=== PATIENT | female | born 2005 | race Caucasian/White ===

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

== ENCOUNTER 2024-01-02 14:23 | Outpatient (CLI) | payer OTHER, SELFPAY ==
--- NOTE | 2024-01-02 14:31 | ECHO_ITS ---
Patient Info Name: Kay Gruber Age: 18 years : 2005 Gender: Female Ht: 65 in Wt: 282 lbs BSA: 2.50 m2 HR: 98 bpm BP: 119 / 98 mmHg Heart Rhythm: Sinus Rhythm Technical Quality: Fair Exam Date: 01/02/2024 2:41 PM Exam Location: Echo Lab Patient Status: Outpatient Admit Date: 01/02/2024 Staff Ordering Physician: Tawanda Lopez DO Community Service Specialist: Whitney Cain RDCS Attending Provider: Tawanda Lopez DO Referring Physician: John POWERS; Exam Type: CA echo doppler color flow Study Info Indications R06.09 - Other forms of dyspnea Complete two-dimensional, color flow and Doppler transthoracic echocardiogram is performed. Summary 1. Complete two-dimensional, color flow and Doppler transthoracic echocardiogram is performed. 2. Left ventricular chamber dimension is normal. 3. Left ventricular systolic function is normal, estimated at 60-65%. 4. The left ventricular diastolic function is normal. 5. E/e' 6 is not elevated. 6. No pulmonary hypertension, estimated pulmonary arterial systolic pressure is 20 mmHg. Left Ventricle E/e' 6 is not elevated. Left ventricular chamber dimension is normal. Left ventricular systolic function is normal, estimated at 60-65%. The left ventricular diastolic function is normal. Right Ventricle Right ventricular systolic function is normal and with normal TAPSE 2.2 cm. Right ventricular chamber dimension is normal. Left Atria Left atrial chamber dimension is normal. Right Atria Right atrial chamber dimension is normal. Aortic Valve The aortic valve is trileaflet. There is no aortic valve stenosis. There is no aortic valve regurgitation. Pulmonic Valve There is no pulmonic regurgitation. Mitral Valve There is no mitral valve stenosis. There is no mitral valve regurgitation. Tricuspid Valve There is no tricuspid valve regurgitation. No pulmonary hypertension, estimated pulmonary arterial systolic pressure is 20 mmHg. Pericardium/Pleural There is no pericardial effusion. Inferior Vena Cava Normal inferior vena cava with >50% collapse upon inspiration consistent with normal right atrial pressure, 5 mmHg. Aorta The aortic root size at the sinus of Valsalva is normal. Left Ventricular Outflow Tract Name Value Normal LVOT 2D LVOT Diameter 2.0 cm LVOT Doppler LVOT Peak Gradient 3 mmHg LVOT Mean Gradient 2 mmHg LVOT VTI 18 cm LVOT VTI/AV VTI Ratio 0.8 LVOT Stroke Volume 57 ml LVOT CO 12.7 l/min LVOT CI 5.1 l/min/m2 Pulmonic Valve Name Value Normal RVOT Doppler RVOT Peak Gradient 2 mmHg PV Doppler PV Peak Gradient 4 mmHg Mitral Valve
== END 2024-01-02 14:24 | disposition home or self-care (01) ==
LOC: ANHCARD 14:26
PROVIDERS: Visit Provider Internal Medicine Cardiovascular Disease
DX: R06.09 Other forms of dyspnea (principal)
CPT/HCPCS: 93306

== ENCOUNTER 2024-01-11 15:13 | Emergency (ER) | payer OTHER, SELFPAY ==
[2024-01-11 16:02] VITALS: BP 150/92; PULSE 110; RESP 18; TEMP 36.7; O2SAT 100
== END 2024-01-11 20:40 | disposition left against medical advice (07) ==
LOC: ANHED 20:07
DX: R10.9 Unspecified abdominal pain (principal)
CPT/HCPCS: 99199

== ENCOUNTER 2024-02-16 11:16 | Outpatient (CLI) | payer OTHER, SELFPAY ==
--- NOTE | ~2024-02-16 | US_ITS ---
Limited Abdominal Sonogram: Real-time sonographic imaging of the right upper quadrant was performed. Clinical History: Abdominal pain Findings: The liver appears echogenic with no evidence of mass lesion or bile duct dilatation. Main portal vein demonstrates normal direction of flow. The gallbladder is well distended, and appears nor mal with no evidence of gallstone or wall thickening. The common bile duct measures 5 mm. The visual ized pancreas, aorta, and IVC are unremarkable. Impression: Diffuse fatty infiltration of the liver. Reviewed, dictated and finalized at location M. Impression: Diffuse fatty infiltration of the liver.
== END 2024-02-16 11:17 | disposition home or self-care (01) ==
LOC: MICIMG 11:17
PROVIDERS: PCP Nurse Practitioner Family; Visit Provider Nurse Practitioner Family
DX: K76.0 Fatty (change of) liver, not elsewhere classified (principal)
CPT/HCPCS: 76705

== ENCOUNTER 2024-04-03 19:58 | Observation (INO) | payer OTHER, SELFPAY ==
--- NOTE | ~2024-04-03 | CT_ITS ---
EXAMINATION: CT abdomen pelvis wo con DATE: 04/03/2024 21:41 INDICATION: Bilateral flank and lower abdomen pain TECHNIQUE: Computed tomography (CT) of the abdomen and pelvis was performed without intravenous contr ast. Automated exposure control and iterative reconstruction technique were employed. Exam dose: 151 0.07 mGy-cm total exam DLP. COMPARISON: None. FINDINGS: The lung bases are clear. Normal heart size. No pericardial or pleural effusion. The liver, gallbladder, bile ducts, spleen, pancreas, pancreatic duct and adrenal glands appear bautista l. No renal mass lesion is evident on this limited noncontrast study. No urinary tract calculus or hydro ureteronephrosis. Subtle bilateral fat stranding around the ureters is noted; recommend clinical correlation to exclude pyelonephritis. The urinary bladder, uterus and adnexal areas appear unremarkable. Normal caliber of the abdominal aorta. There are shotty nonenlarged mesenteric and right lower quadrant lymph nodes. No intraperitoneal or retroperitoneal or pelvic mass lesion or adenopathy or ascites. No evidence of appendicitis. No bowel obstruction, bowel wall thickening, pneumatosis or intraperiton eal free air. Small fat-containing umbilical hernia. No suspicious osteolytic or osteoblastic lesions. IMPRESSION: No urinary tract calculus or hydroureteronephrosis There is subtle bilateral periureteral fat stranding; recommend clinical correlation to exclude pyelo nephritis Reviewed, dictated and finalized at [facility] Reviewed, dictated and finalized at [facility] NOGRAPH OPERATOR IMPRESSION: No urinary tract calculus or hydroureteronephrosis There is subtle bilateral periureteral fat stranding; recommend clinical correl ation to exclude pyelonephritis
[2024-04-03 20:09] VITALS: BP 121/80; PULSE 145; RESP 20; TEMP 38.1; O2SAT 99
--- NOTE | 2024-04-03 20:23 | ECG_ITS ---
Test Date: 2024-04-03 20:26:26 Measurements Intervals [place] Rate: 142 P: 46 KS: 133 QRS: 39 QRSD: 91 T: 1 QT: 328 QTc: 506 Interpretive Statements SINUS TACHYCARDIA DELAYED PRECORDIAL R/S TRANSITION MINIMAL Q WAVES- INFERIOR LEADS ST DEVIATION AND MODERATE T-WAVE ABNORMALITY IN ANTEROLAT/INF LEADS, CONSIDER ISCHEMIA Compared to ECG 03/14/2024 02:29:50 HEART RATE HAS INCRASED Electronically Signed On 04-03-2024 22:24:33 HEALTH CARE FACILITY ADMINISTRATOR by Tawanda Lopez D.O.
[2024-04-03 21:07] LABS: Add Urine Microscopic? YES; Appearance Urine Turbid (Clear); Bacteria Urine 1+ /hpf; Bilirubin Urine Negative (Negative); Blood Urine 3+ (Negative); Color Urine Dark Yellow (Yellow); Glucose Urine UA Negative (Negative); Ketones Urine Trace mg/dL (Negative); Leukocyte Esterase Ur 3+ LEU/UL (Negative); Nitrate Urine Positive (Negative); Non Pathogenic Casts 0-2; Protein Urine 3+ mg/dL (Negative); RBC Urine 51-100 /hpf (0-2); Specific Grav Ur 1.015 (1.001-1.035); Squamous Epithelial Cell Urine Few /hpf (Few); WBC Urine >100 /hpf (0-3); pH Urine 5.5 (5.0-9.0)
[2024-04-03] MEDS: ACETAMINOPHEN 500 MG TABLET 1000 MG PO (21:11)
[2024-04-03] MEDS: SODIUM CHLORIDE 0.9% IV 1,000 ML 999 ML IV CONT ×2 (21:11→22:26)
[2024-04-03] MEDS: MORPHINE SULFATE (*CRX) 4 MG/ML INJ IV PUSH (21:17)
[2024-04-03 21:18] LABS: Basophils Percent Auto 0.1 % (0.2-1.2); Hematocrit 42.7 % (37.0-47.0); Hemoglobin 14.2 g/dL (12.0-15.0); Immature Granulocyte Absolute 0.07 K/mm3 (0.00-0.031); Immature Granulocyte Percent A 0.6 % (0-0.5); Lymphocytes Absolute Auto 1.26 K/mm3 (0.9-3.2); Lymphocytes Percent Auto 10.6 % (18.3-44.2); Mean Corpuscular HGB Conc 33.3 g/dl (32-36); Mean Corpuscular Volume 87.1 fl (80-100); Monocytes Absolute Auto 1.6 K/mm3 (0.1-0.6); Monocytes Percent Auto 13.2 % (2.6-8.5); Neutrophils Percent Auto 75.5 % (45.5-73.1); Platelet Count Result 295 k/mm3 (150-375); Red Cell Distribution Width 12.7 % (11.5-14.5); White Blood Count 11.9 K/mm3 (4.5-10.0)
[2024-04-03] MEDS: ONDANSETRON INJ 4 MG/2 ML VIAL IV PUSH (21:18)
--- NOTE | 2024-04-03 21:28 | ED_ITS ---
HPI - Female Genitourinary General Chief complaint: Urogenital-Female <Taylor Walden PA-C - Last Filed: 04/03/24 23:29> Stated complaint: uti <Taylor Walden PA-C - Last Filed: 04/03/24 23:29> Time Seen by Provider: 04/03/24 20:40 <Taylor Walden PA-C - Last Filed: 04/03/24 23:29> Source: patient <ELISEO Vázquez Last Filed: 04/03/24 23:29> Mode of arrival: ambulatory <ELISEO Vázquez Last Filed: 04/03/24 23:29> Limitations: no limitations <ELISEO Vázquez Last Filed: 04/03/24 23:29> History of Present Illness HPI Narrative: Patient is a 19-year-old female who presents the ED with report of lower abdominal and flank pain. Patient reports having pain throughout her bilateral flank regions, R>L, into her bilateral lower abdomen over the last 3-4 days. Has not been taking anything for pain. Reports urinary frequency and urgency. Reports nausea, denies vomiting. Denies diarrhea, constipation. Reports subjective fevers at home. Was febrile upon arrival today. Denies dysuria or hematuria. Denies previous history of kidney stones or kidney infection. <Taylor Walden PA-C - Last Filed: 04/03/24 23:29> Related Data Allergies/Adverse reactions: Allergies Allergy/AdvReac Type Severity Reaction Status Date / Time No Known Allergies Allergy Verified 04/03/24 20:17 <Taylor Walden PA-C - Last Filed: 04/03/24 23:29> Review of Systems Review of Systems: All systems reviewed & are unremarkable except as noted in HPI. <Taylor Walden PA-C - Last Filed: 04/03/24 23:29> All systems reviewed & are unremarkable except as noted in HPI and below <ELISEO Vázquez Last Filed: 04/03/24 23:29> [facility] Past Medical History Medical History: Medical History ADHD (attention deficit hyperactivity disorder) Anxiety Depression Encounter for Nexplanon removal 05/27/2022 Hypertension Hypertension Nexplanon insertion 07/2018 Nexplanon insertion 08/23/21 Nexplanon removal/reinsertion Nexplanon removal 08/23/21 Nexplanon removal/reinsertion Tachycardia Vaginal discharge <Taylor Walden PA-C - Last Filed: 04/03/24 23:29> Surgical History Surgical History: Surgical History History of tonsillectomy <Taylor Walden PA-C - Last Filed: 04/03/24 23:29> Social History Social History: Social History Smoking status: Never smoker Alcohol intake: never Substance use: never Substance use type: former substance user and marijuana Last use: 02/24/2024 Do You Feel Safe in your Home?: Yes Lack of Transportation: No Lack of Food: Never True Current Housing: I Have Housing Concerned About Future Housing: No Difficulty Paying Gas/Electric Bills: No Difficulty Paying for Meds: No Currently Unemployed: No Education: High School Diploma/GED Difficulty w/ Childcare or Family Care: No Living arrangements: other Additional living arrangements comments: grandma Occupation/Education: unemployed Gender identity (if verbalized by the patient): Female Sexual Orientation (if Verbalized by the Patient): Straight or Heterosexual Spiritual care concerns: No <Taylor Walden PA-C - Last Filed: 04/03/24 23:29> Exam Narrative: GENERAL: Well appearing, obese, non-toxic, in no acute distress. HEAD: Normocephalic, atraumatic. RESPIRATORY: Airway patent, respirations nonlabored. Clear to auscultation bi laterally, no rales, rhonchi, wheezing. CARDIOVASCULAR: Tachycardic with regular rhythm without murmurs, rubs, or gallops. ABDOMINAL: Soft, mild tenderness throughout marianna lower quadrants, nondistended. Normoactive BS. +CVA tenderness bilaterally. MUSCULOSKELETAL: Moves all extremities. No gross deformities. SKIN: Warm, dry, mildly flushed appearing NEURO: A&O X3. Speech clear. Cranial nerves II-XII grossly intact. Steady gait. No ataxic movements. PSYCHIATRIC: Appropriate mood and affect. Normal interaction. <Taylor Walden PA-C - Last Filed: 04/03/24 23:29> Course [employer] MANAGER/PA Physician Supervision I agree with midlevel documentation; I performed medical decision making and I had independent [id number] time with the patient and performed my own independent evaluation and assessment. patient was tachycardic on initial vital signs of 145, treated and provided pain relief and fluid hydration with improvement her vital signs. Patient had improvement medically without significant findings are CT scan including bilateral pyelonephritis. She was treated with IV antibiotic therapy and antipyretic therapy with improvement her temperature 36.8? C. patient is stable for admission to the hospital at this time for continued care and antibiotic therapy. Patient and family members at bedside were made aware of the plan of care and agreeable to admission. Patient was admitted to Dr. Gerer <Jose Arriola MD - Last Filed: 04/04/24 00:26> Vital Signs Vital signs: Vital Signs Temperature 38.1 C H 04/03/24 20:09 Pulse Rate 145 H 04/03/24 20:09 Respiratory Rate 20 04/03/24 20:09 Blood Pressure 121/80 04/03/24 20:09 Pulse Oximetry 99 04/03/24 20:09 Oxygen Delivery Room Air 04/03/24 20:09 Temperature 36.8 C 04/03/24 23:59 Pulse Rate 103 H 04/03/24 23:59 Respiratory Rate 16 04/03/24 23:59 Blood Pressure 131/80 04/03/24 23:59 Pulse Oximetry 100 04/03/24 23:59 Oxygen Delivery Room Air 04/03/24 20:09 <Taylor Walden PA-C - Last Filed: 04/03/24 23:29> Vital Signs Temperature 38.1 C H 04/03/24 20:09 Pulse Rate 145 H 04/03/24 20:09 Respiratory Rate 20 04/03/24 20:09 Blood Pressure 121/80 04/03/24 20:09 Pulse Oximetry 99 04/03/24 20:09 Oxygen Delivery Room Air 04/03/24 20:09 Temperature 36.8 C 04/03/24 23:59 Pulse Rate 103 H 04/03/24 23:59 Respiratory Rate 16 04/03/24 23:59 Blood Pressure 131/80 04/03/24 23:59 Pulse Oximetry 100 04/03/24 23:59 Oxygen Delivery Room Air 04/03/24 20:09 <Jose Arriola MD - Last Filed: 04/04/24 00:26> MDM - Female Genitourinary MDM Narrative Medical decision making narrative: Patient presented to ED with bilateral lower abdominal and flank pain X 3- 4 days. Patient tachycardic into the 140s and febrile upon arrival. Fluids and Tylenol given. She does appear to be frequently tachycardic per recent/previous ED visits. She does states she has a history of this. CBC with white blood cell count of 11.9. Neutrophil predominance. No bandemia. CMP with creatinine of 1.1. Slightly increased from baseline around 0.8. Fluids ongoing. Lactic a yumiko within normal limits at 0.8. UA consistent with infection. Sent for culture. Blood cultures obtained. Rocephin given in the ED. CT scan of abdomen/pelvis showing bilateral periureteral fat stranding, consistent with pyelonephritis. No obstructing stone. Patient meeting sepsis criteria based on initial vital signs and source of infection. Vitals have improved drastically since fluids which is reassuring. However given sepsis with bilateral nature of pyelonephritis, will admit for IV antibiotics. Discussed case with Dr. Greer, hospitalist, accepted patient for admission. Recommended to start meropenem instead of Rocephin. Patient is in agreement with plan and need for admission. <Taylor Walden PA-C - Last Filed: 04/03/24 23:29> Medical Records Attestation: I reviewed the patient's medical records. <Taylor Walden PA-C - Last Filed: 04/03/24 23:29> Lab Data Attestation: I reviewed the patient's lab results. <Taylor Walden PA-C - Last Filed: 04/03/24 23:29> Result diagrams: 04/03/24 21:10 04/03/24 21:10 <Taylor Walden PA-C - Last Filed: 04/03/24 23:29> Labs: Lab Results 04/03/24 04/03/24 Range/Units 20:55 21:10 WBC 11.9 H (4.5-10.0) K/mm3 RBC 4.90 (4.2-5.4) M/mm3 Hgb 14.2 (12.0-15.0) g/dL Hct 42.7 (37.0-47.0) % MCV 87.1 (80-100) fl MCH 29.0 (26-34) pg MCHC 33.3 (32-36) g/dl RDW 12.7 (11.5-14.5) % Plt Count 295 (150-375) k/mm3 MPV 10.0 (7.4-10.4) fl Immature Gran % (Auto) 0.6 H (0-0.5) % Neut % (Auto) 75.5 H (45.5-73.1) % Lymph % (Auto) 10.6 L (18.3-44.2) % [place] % (Auto) 13.2 H (2.6-8.5) % Eos % (Auto) 0.0 (0-4.4) % Baso % (Auto) 0.1 L (0.2-1.2) % Lymph # (Auto) 1.26 (0.9-3.2) K/mm3 [place] # (Auto) 1.6 H (0.1-0.6) K/mm3 Eos # (Auto) 0.0 (0-0.3) K/mm3 Baso # (Auto) 0.0 (0.0-0.1) K/mm3 Abs Immat Gran (auto) 0.07 H (0.00-0.031) K/mm3 Absolute Neuts (auto) 9.0 H (1.3-6.7) K/mm3 Absolute Nucleated RBC 0.000 (0.0-0.012) K/mm3 Nucleated RBC % 0.0 (0.0-0.2) % Sodium 138 (137-145) mmol/L Potassium 3.7 (3.4-5.0) mmol/L Chloride 103 (98-107) mmol/L Carbon Dioxide 25 (22-30) mmol/L Anion Gap 10 (4-12) mmol/L BUN 7 (7-17) mg/dL Creatinine 1.10 H (0.7-1.0) mg/dL Estim Creat Clear Calc Not Reportable Estimated GFR > 60 (59 - ) Glucose 97 (65-110) mg/dL Lactic Acid 0.8 (0.7-2.0) mmol/L Calcium 9.6 (8.4-10.2) mg/dL Total Bilirubin 2.0 H (0.2-1.3) mg/dL AST 22 (14-36) U/L ALT 27 (6-35) U/L Alkaline Phosphatase 102 (38-126) U/L Total Protein 9.0 H (6.3-8.2) g/dL Albumin 4.6 (3.5-5.1) g/dL Urine Color Dark yellow (Yellow) Urine Appearance Turbid H (Clear) Urine pH 5.5 (5.0-9.0) Ur Specific [place] 1.015 (1.001-1.035) Urine Protein 3+ H (Negative) mg/dL Urine Glucose (UA) Negative (Negative) mg/dL Urine Ketones Trace H (Negative) mg/dL Ur Blood (Man) 3+ H (Negative) Urine Nitrate Positive H (Negative) Urine Bilirubin Negative (Negative) Urine Urobilinogen 1.0 (<2.0) mg/dL Leukocyte Esterase Rfl 3+ H (Negative) LACY/UL Urine RBC 51-100 H (0-2) /hpf Urine WBC >100 H (0-3) /hpf Ur Squamous Epith Cells Few (Few) /hpf Urine Bacteria 1+ H /hpf Urine Casts 0-2 <Taylor Walden PA-C - Last Filed: 04/03/24 23:29> Lab Results 04/03/24 04/03/24 Range/Units 20:55 21:10 WBC 11.9 H (4.5-10.0) K/mm3 RBC 4.90 (4.2-5.4) M/mm3 Hgb 14.2 (12.0-15.0) g/dL Hct 42.7 (37.0-47.0) % MCV 87.1 (80-100) fl MCH 29.0 (26-34) pg MCHC 33.3 (32-36) g/dl RDW 12.7 (11.5-14.5) % Plt Count 295 (150-375) k/mm3 MPV 10.0 (7.4-10.4) fl Immature Gran % (Auto) 0.6 H (0-0.5) % Neut % (Auto) 75.5 H (45.5-73.1) % Lymph % (Auto) 10.6 L (18.3-44.2) % [place] % (Auto) 13.2 H (2.6-8.5) % Eos % (Auto) 0.0 (0-4.4) % Baso % (Auto) 0.1 L (0.2-1.2) % Lymph # (Auto) 1.26 (0.9-3.2) K/mm3 [place] # (Auto) 1.6 H (0.1-0.6) K/mm3 Eos # (Auto) 0.0 (0-0.3) K/mm3 Baso # (Auto) 0.0 (0.0-0.1) K/mm3 Abs Immat Gran (auto) 0.07 H (0.00-0.031) K/mm3 Absolute Neuts (auto) 9.0 H (1.3-6.7) K/mm3 Absolute Nucleated RBC 0.000 (0.0-0.012) K/mm3 Nucleated RBC % 0.0 (0.0-0.2) % Sodium 138 (137-145) mmol/L Potassium 3.7 (3.4-5.0) mmol/L Chloride 103 (98-107) mmol/L Carbon Dioxide 25 (22-30) mmol/L Anion Gap 10 (4-12) mmol/L BUN 7 (7-17) mg/dL Creatinine 1.10 H (0.7-1.0) mg/dL Estim Creat Clear Calc Not Reportable Estimated GFR > 60 (59 - ) Glucose 97 (65-110) mg/dL Lactic Acid 0.8 (0.7-2.0) mmol/L Calcium 9.6 (8.4-10.2) mg/dL Total Bilirubin 2.0 H (0.2-1.3) mg/dL AST 22 (14-36) U/L ALT 27 (6-35) U/L Alkaline Phosphatase 102 (38-126) U/L Total Protein 9.0 H (6.3-8.2) g/dL Albumin 4.6 (3.5-5.1) g/dL Urine Color Dark yellow (Yellow) Urine Appearance Turbid H (Clear) Urine pH 5.5 (5.0-9.0) Ur Specific [place] 1.015 (1.001-1.035) Urine Protein 3+ H (Negative) mg/dL Urine Glucose (UA) Negative (Negative) mg/dL Urine Ketones Trace H (Negative) mg/dL Ur Blood (Man) 3+ H (Negative) Urine Nitrate Positive H (Negative) Urine Bilirubin Negative (Negative) Urine Urobilinogen 1.0 (<2.0) mg/dL Leukocyte Esterase Rfl 3+ H (Negative) LACY/UL Urine RBC 51-100 H (0-2) /hpf Urine WBC >100 H (0-3) /hpf Ur Squamous Epith Cells Few (Few) /hpf Urine Bacteria 1+ H /hpf Urine Casts 0-2 <Jose Arriola MD - Last Filed: 04/04/24 00:26> Imaging Data Attestation: I personally reviewed and interpreted this imaging study as follows: < Taylor Walden PA-C - Last Filed: 04/03/24 23:29> Radiologist's impression: ITS Impressions Abdomen/Pelvis CT 04/03/24 21:47 IMPRESSION: No urinary tract calculus or hydroureteronephrosis There is subtle bilateral periureteral fat stranding; recommend clinical correlation to exclude pyelonephritis <Taylor Walden PA-C - Last Filed: 04/03/24 23:29> ECG Data EKG #1: Attestation: I personally reviewed and interpreted this ECG as follows: <Taylor Walden PA-C - Last Filed: 04/03/24 23:29> ECG completion date: 04/03/24 <Taylor Walden PA-C - Last Filed: 04/03/24 23:29> ECG completion time: 20:26 <Taylor Walden PA-C - Last Filed: 04/03/24 23:29> EKG Interpretation: tachycardia (142), sinus rhythm and non-specific ST changes <Taylor Walden PA-C - Last Filed: 04/03/24 23:29> Discharge Plan Discharge Clinical Impression: Pyelonephritis, NOE (acute kidney injury) UTI (urinary tract infection) Qualifiers: Urinary tract infection type: acute cystitis Hematuria presence: with hematuria Qualified Code(s): N30.01 - Acute cystitis with hematuria Sepsis Qualifiers: Sepsis type: sepsis due to unspecified organism Sepsis acute organ dysfunction status: unspecified Qualified Code(s): A41.9 - Sepsis, unspecified organism <Taylor Walden PA-C - Last Filed: 04/03/24 23:29> Patient Disposition: Still a Patient <Taylor Walden PA-C - Last Filed: 04/03/24 23:29> Condition: Stable <ELISEO Vázquez Last Filed: 04/03/24 23:29>
[2024-04-03 21:38] LABS: Alanine Aminotransferase 27 U/L (6-35); Albumin Level 4.6 g/dL (3.5-5.1); Alkaline Phosphatase 102 U/L (38-126); Anion Gap 10 mmol/L (4-12); Aspartate Amino Transferase 22 U/L (14-36); Blood Urea Nitrogen 7 mg/dL (7-17); Calcium 9.6 mg/dL (8.4-10.2); Carbon Dioxide 25 mmol/L (22-30); Chloride 103 mmol/L (98-107); Estimated Glomerular Filt Rate > 60; Glucose 97 mg/dL (65-110); Lactic Acid Reflex 0.8 mmol/L (0.7-2.0); Potassium 3.7 mmol/L (3.4-5.0); Sodium 138 mmol/L (137-145)
[2024-04-03 22:20] VITALS: BP 115/78; PULSE 98; RESP 20; O2SAT 99
--- NOTE | 2024-04-03 23:07 | PM.IMHP ---
H&P: HPI History of Present Illness Date/Time: 04/03/24 23:07 Chief Complaint: urinary frequency Narrative: This is a 19-year-old female with past medical history significant for obesity, patient presents to the emergency room due to lethargy, fevers, chills, back pain, urinary incontinence, urinary frequency x2 days duration. Preliminary workup was significant for urinalysis with numerous WBCs present a CT of abdomen and pelvis was significant for ureteral fat stranding. Patient has been admitted for further evaluation management and treatment. EXAMINATION: CT abdomen pelvis wo con DATE: 04/03/2024 21:41 INDICATION: Bilateral flank and lower abdomen pain TECHNIQUE: Computed tomography (CT) of the abdomen and pelvis was performed without intravenous contrast. Automated exposure control and iterative reconstruction technique were employed. Exam dose: 1510.07 mGy-cm total exam DLP. COMPARISON: None. FINDINGS: The lung bases are clear. Normal heart size. No pericardial or pleural effusion. The liver, gallbladder, bile ducts, spleen, pancreas, pancreatic duct and adrenal glands appear normal. No renal mass lesion is evident on this limited noncontrast study. No urinary tract calculus or hydroureteronephrosis. Subtle bilateral fat stranding around the ureters is noted; recommend clinical correlation to exclude pyelonephritis. The urinary bladder, uterus and adnexal areas appear unremarkable. Normal caliber of the abdominal aorta. There are shotty nonenlarged mesenteric and right lower quadrant lymph nodes. No intraperitoneal or retroperitoneal or pelvic mass lesion or adenopathy or ascites. No evidence of appendicitis. No bowel obstruction, bowel wall thickening, pneumatosis or intraperitoneal free air. Small fat-containing umbilical hernia. No suspicious osteolytic or osteoblastic lesions. IMPRESSION: No urinary tract calculus or hydroureteronephrosis There is subtle bilateral periureteral fat stranding; recommend clinical correlation to exclude pyelonephritis Review of Systems Review of Systems: altered mental status, lethargy, fevers, chills, frequent urination, urine incontinence PMFSH Past Medical History Medical History ADHD (attention deficit hyperactivity disorder) Anxiety Depression Encounter for Nexplanon removal 05/27/2022 Hypertension Hypertension Nexplanon insertion 07/2018 Nexplanon insertion 08/23/21 Nexplanon removal/reinsertion Nexplanon removal 08/23/21 Nexplanon removal/reinsertion Tachycardia Vaginal discharge Surgical History Surgical History History of tonsillectomy Social History Social History Smoking status: Never smoker Alcohol intake: never Substance use: never Current Housing: Decline to Answer Concerned About Future Housing: Decline to Answer Difficulty Paying Gas/Electric Bills: Decline to Answer Difficulty Paying for Meds: Decline to Answer Currently Unemployed: Decline to Answer Education: Decline to Answer Difficulty w/ Childcare or Family Care: Decline to Answer Living arrangements: other Additional living arrangements comments: grandma Occupation/Education: unemployed Gender identity (if verbalized by the patient): Female Sexual Orientation (if Verbalized by the Patient): Straight or Heterosexual Meds Home Medications and Allergies Home Medications Medication Instructions Recorded Confirmed Type norethindrone (contraceptive) 0.35 0.35 mg PO DAILY #84 tabs 12/08/23 04/04/24 Rx mg tablet losartan 50 mg tablet 50 mg PO DAILY #30 tabs 12/18/23 04/04/24 Rx propranolol 20 mg tablet 20 mg PO BID #60 tabs 12/18/23 04/04/24 Rx ibuprofen 800 mg tablet 800 mg PO TID PRN pain #30 tabs 03/14/24 04/04/24 Rx Allergies Allergy/AdvReac Type Severity Reaction Status Date / Time No Known Allergies Allergy Verified 04/03/24 20:17 Vital Signs Vital Signs - 24 hr 04/03/24 20:09 04/03/24 22:20 Temperature 100.6 F H Pulse Rate 145 H 98 Respiratory Rate 20 20 Blood Pressure 121/80 115/78 Pulse Oximetry 99 99 Oxygen Delivery Room Air Exam Narrative: Laying in a stretcher Const: General: cooperative, comfortable, no acute distress, well developed, alert, awake and obese Nutritional Appearance: obese Orientation/consciousness: patient oriented x3 Other: well-appearing HENMT: Head: normal to inspection, normocephalic and atraumatic Ears: hearing grossly normal bilaterally Face/Nose/Sinus: normal facial exam Face and sinus: normal facial exam Eyes: General: appearance normal, both eyes and all related structures Pupils: Equal, round and reactive pupils present EOM: EOMs intact bilaterally Neck: Neck: full ROM, no lymphadenopathy and no JVD Thyroid: thyroid normal Lymphatic: no lymphadenopathy noted Resp: Effort & Inspection: normal respiratory effort and able to speak in complete sentences Auscultation: clear to auscultation bilaterally Cardio: Jugular venous distension: no JVD Rate: regular rate Rhythm: regular rhythm Heart sounds: S1 normal heart sound present and S2 normal heart sound present GI: GI Palp: Yes Soft to palpation and Yes No hepatosplenomegaly present : General: Yes deferred Skin: Rashes: no rashes Wounds: no wounds Neuro: General: patient oriented x3 and CN's II-XI intact bilaterally Cranial nerves: Yes CN's II-XII intact bilaterally and Yes Equal, round and reactive pupils present Cognition (Neuro): normal cognition Speech: normal speech Gait exam (Neuro): Normal gait present Motor exam (neuro): 5/5 motor strength present throughout Extrem: General: normal to inspection, full ROM, no joint enlargement and no pedal edema H&P: Results Labs Labs: Short CBC 04/03/24 Range/Units 21:10 WBC 11.9 H (4.5-10.0) K/mm3 Hgb 14.2 (12.0-15.0) g/dL Hct 42.7 (37.0-47.0) % Plt Count 295 (150-375) k/mm3 BMP 04/03/24 21:10 Sodium 138 Potassium 3.7 Chloride 103 Carbon Dioxide 25 BUN 7 Creatinine 1.10 H Glucose 97 Calcium 9.6 Liver Function 04/03/24 Range/Units 21:10 Total Bilirubin 2.0 H (0.2-1.3) mg/dL AST 22 (14-36) U/L ALT 27 (6-35) U/L Alkaline Phosphatase 102 (38-126) U/L Albumin 4.6 (3.5-5.1) g/dL Urine 04/03/24 Range/Units 20:55 Urine Color Dark yellow (Yellow) Urine Appearance Turbid H (Clear) Urine pH 5.5 (5.0-9.0) Ur Specific [place] 1.015 (1.001-1.035) Urine Protein 3+ H (Negative) mg/dL Urine Glucose (UA) Negative (Negative) mg/dL Assessment and Plan Assessment and plan (1) Pyelonephritis: Code(s): N12 - Tubulo-interstitial nephritis, not specified as acute or chronic Status: Acute Assessment and Plan: admit to regular medical floor started on meropenem await cultures Hospitalist MIPS Advance Care Plan I have confirmed that the patient's Advanced Care Plan is present, code status is documented, or surrogate decision maker is listed in patient medical record.: Yes Medication Reconciliation I have utilized all available resources to obtain, update and review the patients current medications (includes all prescriptions, OTC, herbals, cannabis, and nutritional supplements).: Yes
[2024-04-03] MEDS: MEROPENEM 1 GM/NS 100 ML 1 GM/100 ML BAG IVPB (23:22)
[2024-04-03 23:23] VITALS: TEMP 36.8
[2024-04-03 23:45] VITALS: BP 132/93; PULSE 99; RESP 14; O2SAT 100; BMI 45.3
[2024-04-03 23:59] VITALS: BP 131/80; PULSE 103; RESP 16; TEMP 36.8; O2SAT 100
[2024-04-04] VITALS (8 sets, daily range): BP systolic 102–125; BP diastolic 49–83; PULSE 69–98; RESP 16–18; TEMP 36.3–37; O2SAT 99–100
--- NOTE | 2024-04-04 00:03 | ADMGEN ---
This patient, Kay Gruber, was admitted to Medical Room 247-. Patient/family oriented to hospital policies and general routines including ID bracelet, bed and alarms, visiting hours, pain management, procedures, bathroom and other care routines, personal items, smoking policy, room service/diet, and visiting hours. Information on how to activate the Rapid Response Team has been discussed. Patient/Family are encouraged to report perceived risks to care and to ask questions if they do not understand what they are told or what they should do.
[2024-04-04] MEDS: ACETAMINOPHEN 325 MG TABLET 650 MG PO (02:45)
[2024-04-04] MEDS: SODIUM CHLORIDE 0.9% IV 1,000 ML 100 ML IV CONT ×2 (02:45→15:27)
[2024-04-04] MEDS: MEROPENEM 1 GM/NS 100 ML 1 GM/100 ML BAG IVPB ×3 (05:17→21:12)
--- NOTE | 2024-04-04 07:25 | P.PNIM_ITS ---
Progress Note: A&P Assessment and Plan (1) Pyelonephritis: Code(s): N12 - Tubulo-interstitial nephritis, not specified as acute or chronic Status: Acute Assessment and Plan: started on meropenem await cultures bc and urine culture pending (2) Hypertension: Code(s): I10 - Essential (primary) hypertension Status: Acute Assessment and Plan: -home losartan 50 mg- will continue - need referal to weight loss clinic oupt for weight loss and life style changes intervention (3) Obesity: Code(s): E66.9 - Obesity, unspecified Status: Acute (4) Tachycardia: Code(s): R00.0 - Tachycardia, unspecified Status: Acute Assessment and Plan: following with cardiology her, SHABNAM 12/18/23 on propanolol- will continue Time Spent With Patient Time with patient: Greater than 35 minutes Subjective Date/time seen: 04/04/24 07:25 Interval history: 19 y.o female with PMH/o ADHD, anxiety, depression, HTN, tachycardia admitted from ed for lethargy, fevers, chills, back pain, urinary incontinence, urinary frequency x2 days duration. She was started on meropenem and admitted. Pt is seen and examined. Her home meds were resumed. She is doing well- reports some pain but a lo better than it was. Ibuprofen controlled pain well, no nausea. Review of Systems Constitutional: Constitutional: Reports chills Cardiovascular: Cardiovascular: Denies chest pain Respiratory: Respiratory: Denies chest congestion and Denies cough Gastrointestinal: Gastrointestinal: Denies abdominal pain Genitourinary: Genitourinary: Reports nocturia Musculoskeletal: Musculoskeletal: Reports back pain Comments: some flank pain but improving Psychiatric: Psychiatric: Reports anxiety and Reports confusion Exam Const: General: cooperative, comfortable, no acute distress, well developed, alert, awake and obese Nutritional Appearance: obese Orientation/con sciousness: patient oriented x3 Other: well-appearing HENMT: Head: normal to inspection, normocephalic and atraumatic Ears: hearing grossly normal bilaterally Face/Nose/Sinus: normal facial exam Face and sinus: normal facial exam Eyes: General: appearance normal, both eyes and all related structures Pupils: Equal, round and reactive pupils present EOM: EOMs intact bilaterally Neck: Neck: full ROM, no lymphadenopathy and no JVD Thyroid: thyroid normal Lymphatic: no lymphadenopathy noted Resp: Effort & Inspection: normal respiratory effort and able to speak in complete sentences Auscultation: clear to auscultation bilaterally Cardio: Jugular venous distension: no JVD Rate: regular rate Rhythm: regular rhythm Heart sounds: S1 normal heart sound present and S2 normal heart sound present : General: Yes deferred Skin: Rashes: no rashes Wounds: no wounds Neuro: General: patient oriented x3 and CN's II-XI intact bilaterally Cranial nerves: Yes CN's II-XII intact bilaterally and Yes Equal, round and reactive pupils present Cognition (Neuro): normal cognition Speech: normal speech Gait exam (Neuro): Normal gait present Motor exam (neuro): 5/5 motor strength present throughout Extrem: General: normal to inspection, full ROM, no joint enlargement and no pedal edema Objective Data Vital Signs Vital Signs: Vital Signs - 24 hr 04/03/24 20:09 04/03/24 22:20 04/03/24 23:23 Temperature 100.6 F H 98.3 F Pulse Rate 145 H 98 Respiratory Rate 20 20 Blood Pressure 121/80 115/78 Pulse Oximetry 99 99 Oxygen Delivery Room Air 04/03/24 23:45 04/03/24 23:59 04/04/24 06:00 Temperature 98.3 F 98.6 F Pulse Rate 99 103 H 95 Respiratory Rate 14 16 16 Blood Pressure 132/93 H 131/80 125/70 Pulse Oximetry 100 100 99 Oxygen Delivery Intake/Output Intake/Output: Intake & Output 04/01/24 04/02/24 04/03/24 04/04/24 23:59 23:59 23:59 23:59 Intake Total 2150 600 Output Total 700 Balance 2150 -100 Meds/Results Medications: Active Medications Generic Name Dose Route Start Last Admin Trade Name Freq PRN Reason Stop Dose Admin Acetaminophen 650 mg 04/03/24 23:09 04/04/24 02:45 Acetaminophen 325 Mg Tablet PO 650 mg Q4H PRN Administration Mild Pain (1-3) or Fever Meropenem 1 gm in 100 mls @ 200 mls/hr 04/04/24 06:00 04/04/24 05:47 IVPB Infused Q8HR VIANNEY Infusion Sodium Chloride 1,000 mls @ 100 mls/hr 04/03/24 23:10 04/04/24 02:45 Normal Saline Iv IV CONT 100 mls/hr .Q10H VIANNEY Administration Morphine Sulfate 4 mg 04/03/24 23:09 Morphine Sulfate (*Crx) 4 Mg/Ml Inj IV PUSH Q2H PRN Pain Rated 7-10 Ondansetron HCl 4 mg 04/03/24 23:09 Ondansetron Inj 4 Mg/2 Ml Vial IV PUSH Q4H PRN Nausea Radiology Results: ITS Impressions Abdomen/Pelvis CT 04/03/24 21:47 IMPRESSION: No urinary tract calculus or hydroureteronephrosis There is subtle bilateral periureteral fat stranding; recommend clinical correlation to exclude pyelonephritis Labs Labs: Laboratory Results - last 24 hr 04/03/24 04/03/24 20:55 21:10 WBC 11.9 H RBC 4.90 Hgb 14.2 Hct 42.7 MCV 87.1 MCH 29.0 MCHC 33.3 RDW 12.7 Plt Count 295 MPV 10.0 Immature Gran % (Auto) 0.6 H Neut % (Auto) 75.5 H Lymph % (Auto) 10.6 L [place] % (Auto) 13.2 H Eos % (Auto) 0.0 Baso % (Auto) 0.1 L Lymph # (Auto) 1.26 [place] # (Auto) 1.6 H Eos # (Auto) 0.0 Baso # (Auto) 0.0 Abs Immat Gran (auto) 0.07 H Absolute Neuts (auto) 9.0 H Absolute Nucleated RBC 0.000 Nucleated RBC % 0.0 Sodium 138 Potassium 3.7 Chloride 103 Carbon Dioxide 25 Anion Gap 10 BUN 7 Creatinine 1.10 H Estim Creat Clear Calc Not Reportable Estimated GFR > 60 Glucose 97 Lactic Acid 0.8 Calcium 9.6 Total Bilirubin 2.0 H AST 22 ALT 27 Alkaline Phosphatase 102 Total Protein 9.0 H Albumin 4.6 Urine Color Dark yellow Urine Appearance Turbid H Urine pH 5.5 Ur Specific [place] 1.015 Urine Protein 3+ H Urine Glucose (UA) Negative Urine Ketones Trace H Ur Blood (Man) 3+ H Urine Nitrate Positive H Urine Bilirubin Negative Urine Urobilinogen 1.0 Leukocyte Esterase Rfl 3+ H Urine RBC 51-100 H Urine WBC >100 H Ur Squamous Epith Cells Few Urine Bacteria 1+ H Urine Casts 0-2
[2024-04-04] MEDS: PROPRANOLOL HCL 20 MG TABLET PO (08:57)
[2024-04-04] MEDS: LOSARTAN POTASSIUM 50 MG TABLET PO (08:57)
[2024-04-04] MEDS: IBUPROFEN 400 MG TABLET 800 MG PO (09:00)
[2024-04-04] MEDS: ONDANSETRON INJ 4 MG/2 ML VIAL IV PUSH (23:19)
[2024-04-04] MEDS: MORPHINE SULFATE (*CRX) 4 MG/ML INJ IV PUSH (23:19)
[2024-04-05] MEDS: SODIUM CHLORIDE 0.9% IV 1,000 ML 100 ML IV CONT (01:27)
[2024-04-05 05:06] VITALS: TEMP 37.3
[2024-04-05] MEDS: IBUPROFEN 400 MG TABLET 800 MG PO (05:06)
[2024-04-05] MEDS: MEROPENEM 1 GM/NS 100 ML 1 GM/100 ML BAG IVPB (05:06)
[2024-04-05 06:00] VITALS: BP 105/62; PULSE 104; RESP 16; TEMP 37.3; O2SAT 99
[2024-04-05 06:17] LABS: Hemoglobin 11.1 g/dL (12.0-15.0); Mean Corpuscular HGB Conc 32.6 g/dl (32-36); Mean Corpuscular Hemoglobin 28.7 pg (26-34); Mean Corpuscular Volume 87.9 fl (80-100); Mean Platelet Volume 9.8 fl (7.4-10.4); Platelet Count Result 206 k/mm3 (150-375); Red Blood Count 3.87 M/mm3 (4.2-5.4); Red Cell Distribution Width 12.8 % (11.5-14.5); White Blood Count 8.2 K/mm3 (4.5-10.0)
[2024-04-05 06:40] LABS: Anion Gap 9 mmol/L (4-12); Blood Urea Nitrogen 5 mg/dL (7-17); Calcium 8.6 mg/dL (8.4-10.2); Carbon Dioxide 22 mmol/L (22-30); Chloride 108 mmol/L (98-107); Estimated CRCL calculation 146 ml/min; Estimated Glomerular Filt Rate > 60; Glucose 95 mg/dL (65-110); Potassium 3.8 mmol/L (3.4-5.0); Sodium 139 mmol/L (137-145)
--- NOTE | 2024-04-05 07:32 | PM.IMPN ---
Progress Note: A&P Assessment and Plan (1) Pyelonephritis: Code(s): N12 - Tubulo-interstitial nephritis, not specified as acute or chronic Status: Acute Assessment and Plan: started on meropenem await cultures bc prelim- negative urine culture pending (2) Hypertension: Code(s): I10 - Essential (primary) hypertension Status: Acute Assessment and Plan: -home losartan 50 mg- will continue - need referal to weight loss clinic oupt for weight loss and life style changes intervention (3) Obesity: Code(s): E66.9 - Obesity, unspecified Status: Acute (4) Tachycardia: Code(s): R00.0 - Tachycardia, unspecified Status: Acute Assessment and Plan: following with cardiology her, SHABNAM 12/18/23 on propanolol- will continue Time Spent With Patient Time with patient: Greater than 35 minutes Subjective Date/time seen: 04/05/24 07:32 Interval history: 19 y.o female with PMH/o ADHD, anxiety, depression, HTN, tachycardia admitted from ed for lethargy, fevers, chills, back pain, urinary incontinence, urinary frequency x2 days duration. She was started on meropenem and admitted. Pt is seen and examined. Her home meds were resumed. She is doing well- reports some pain but a lot better than it was. Ibuprofen controlled pain well, no nausea. 04/05- seen and examined at the bedside Review of Systems Review of Systems: altered mental status, lethargy, fevers, chills, frequent urination, urine incontinence Constitutional: Constitutional: Reports chills Cardiovascular: Cardiovascular: Denies chest pain Respiratory: Respiratory: Denies chest congestion and Denies cough Gastrointestinal: Gastrointestinal: Denies abdominal pain Genitourinary: Genitourinary: Reports nocturia Musculoskeletal: Musculoskeletal: Reports back pain Neurologic: Reports confusion Psychiatric: Psychiatric: Reports anxiety and Reports confusion Exam Narrative: Laying in a stretcher Const: General: cooperative, comfortable, no acute distress, well developed, alert, awake, confusion, average body habitus and obese Nutritional Appearance: average body habitus and obese Orientation/consciousness: patient oriented x3 and confusion Other: well-appearing HENMT: Head: normal to inspection, normocephalic and atraumatic Ears: hearing grossly normal bilaterally Face/Nose/Sinus: normal facial exam Face and sinus: normal facial exam Eyes: General: appearance normal, both eyes and all related structures Pupils: Equal, round and reactive pupils present EOM: EOMs intact bilaterally Neck: Neck: full ROM, no lymphadenopathy and no JVD Thyroid: thyroid normal Lymphatic: no lymphadenopathy noted Resp: Effort & Inspection: normal respiratory effort and able to speak in complete sentences Auscultation: clear to auscultation bilaterally Cardio: Jugular venous distension: no JVD Rate: regular rate Rhythm: regular rhythm Heart sounds: S1 normal heart sound present and S2 normal heart sound present : General: Yes deferred Skin: Rashes: no rashes Wounds: no wounds Neuro: General: patient oriented x3, CN's II-XI intact bilaterally and confusion Cranial nerves: Yes CN's II-XII intact bilaterally and Yes Equal, round and reactive pupils present Cognition (Neuro): normal cognition Speech: normal speech Gait exam (Neuro): Normal gait present Motor exam (neuro): 5/5 motor strength present throughout Extrem: General: normal to inspection, full ROM, no joint enlargement and no pedal edema Objective Data Vital Signs Vital Signs: Vital Signs - 24 hr 04/04/24 08:53 04/04/24 08:57 04/04/24 08:57 Temperature 98.1 F Pulse Rate 94 98 Respiratory Rate 18 Blood Pressure 125/83 Pulse Oximetry 100 Oxygen Delivery Room Air 04/04/24 15:29 04/04/24 17:28 04/04/24 17:52 Temperature 97.7 F Pulse Rate 69 70 70 Respiratory Rate 18 16 Blood Pressure 106/49 L 109/65 Pulse Oximetry 99 100 Oxygen Delivery 04/04/24 20:00 04/04/24 22:00 04/05/24 05:06 Temperature 97.3 F L 99.2 F Pulse Rate 70 85 Respiratory Rate 16 16 Blood Pressure 102/74 Pulse Oximetry 100 100 Oxygen Delivery Room Air 04/05/24 06:00 Temperature 99.2 F Pulse Rate 104 H Respiratory Rate 16 Blood Pressure 105/62 Pulse Oximetry 99 Oxygen Delivery Intake/Output Intake/Output: Intake & Output 04/02/24 04/03/24 04/04/24 04/05/24 23:59 23:59 23:59 23:59 Intake Total 2150 2880 2200 Output Total 1600 1000 Balance 2150 1280 1200 Meds/Results Medications: Active Medications Generic Name Dose Route Start Last Admin Trade Name Freq PRN Reason Stop Dose Admin Acetaminophen 650 mg 04/03/24 23:09 04/04/24 02:45 Acetaminophen 325 Mg Tablet PO 650 mg Q4H PRN Administration Mild Pain (1-3) or Fever Meropenem 1 gm in 100 mls @ 200 mls/hr 04/04/24 06:00 04/05/24 05:36 IVPB Infused Q8HR VIANNEY Infusion Sodium Chloride 1,000 mls @ 100 mls/hr 04/03/24 23:10 04/05/24 01:27 Normal Saline Iv IV CONT 100 mls/hr .Q10H VIANNEY Administration Ibuprofen 800 mg 04/04/24 07:33 04/05/24 05:06 Ibuprofen 400 Mg Tablet PO 800 mg TID PRN Administration Pain Rated 4-6 Losartan Potassium 50 mg 04/04/24 09:00 04/04/24 08:57 Losartan Potassium 50 Mg Tablet PO 50 mg DAILY VIANNEY Administration Miscellaneous Information 0 each 04/04/24 00:01 Norethindrone Is Nonformulary - Can Patient Use From Home? XX 05/04/24 00:00 [facility] Morphine Sulfate 4 mg 04/03/24 23:09 04/04/24 23:19 Morphine Sulfate (*Crx) 4 Mg/Ml Inj IV PUSH 4 mg Q2H PRN Administration Pain Rated 7-10 Non-Formulary Medication 0.35 mg 04/04/24 09:00 Norethindrone (Contraceptive) PO 05/04/24 08:59 DAILY [facility] Ondansetron HCl 4 mg 04/03/24 23:09 04/04/24 23:19 Ondansetron Inj 4 Mg/2 Ml Vial IV PUSH 4 mg Q4H PRN Administration Nausea Propranolol HCl 20 mg 04/04/24 09:00 04/04/24 17:52 Propranolol Hcl 20 Mg Tablet PO Not Given BID [facility] Radiology Results: ITS Impressions Abdomen/Pelvis CT 04/03/24 21:47 IMPRESSION: No urinary tract calculus or hydroureteronephrosis There is subtle bilateral periureteral fat stranding; recommend clinical correlation to exclude pyelonephritis Labs Labs: Laboratory Results - last 24 hr 04/05/24 06:13 WBC 8.2 RBC 3.87 L Hgb 11.1 L D Hct 34.0 L MCV 87.9 MCH 28.7 MCHC 32.6 RDW 12.8 Plt Count 206 MPV 9.8 Sodium 139 Potassium 3.8 Chloride 108 H Carbon Dioxide 22 Anion Gap 9 BUN 5 L Creatinine 0.70 Estim Creat Clear Calc 146 Estimated GFR > 60 Glucose 95 Calcium 8.6
[2024-04-05 08:12] VITALS: BP 125/75; PULSE 76; RESP 16; TEMP 36.1; O2SAT 100
[2024-04-05 08:13] VITALS: PULSE 79; RESP 16; O2SAT 100
[2024-04-05] MEDS: LOSARTAN POTASSIUM 50 MG TABLET PO (08:13)
[2024-04-05] MEDS: PROPRANOLOL HCL 20 MG TABLET PO (08:13)
[2024-04-05] MEDS: cefTRIAXone 2 GM/NS 100 ML 2 GM/100 ML BAG IVPB (11:05)
[2024-04-05 14:00] VITALS: BP 114/74; PULSE 71; RESP 18; TEMP 36.4; O2SAT 100
--- NOTE | 2024-04-05 14:02 | PM.DS ---
DS: Admitting Diagnosis Discharge Date 04/05 Admitting Diagnosis flank pain DS: Discharge Diagnosis Discharge Diagnosis (1) Pyelonephritis: Code(s): N12 - Tubulo-interstitial nephritis, not specified as acute or chronic Status: Acute Assessment and Plan: (2) Hypertension: Code(s): I10 - Essential (primary) hypertension Status: Acute (3) Obesity: Code(s): E66.9 - Obesity, unspecified Status: Acute (4) Tachycardia: Code(s): R00.0 - Tachycardia, unspecified Status: Acute DS: Summary Hospital Course Hospital Course: 19 y.o female with PMH/o ADHD, anxiety, depression, HTN, tachycardia admitted from ed for lethargy, fevers, chills, back pain, urinary incontinence, urinary frequency x2 days duration. She was started on meropenem and admitted. IV antibiotics were switched as no h/o MDRO,and she was downgraded to bactrum. She is trying to become - so important to complete antibiotics prior to becoming . Time Spent with Patient Time attestation: Total time spent providing and/or coordinating discharge services: Time spent: Greater than 30 minutes Exam Const: General: cooperative, comfortable, no acute distress, well developed, alert, awake and obese Nutritional Appearance: obese Orientation/consciousness: patient oriented x3 Other: well-appearing HENMT: Head: normal to inspection, normocephalic and atraumatic Ears: hearing grossly normal bilaterally Face/Nose/Sinus: normal facial exam Face and sinus: normal facial exam Eyes: General: appearance normal, both eyes and all related structures Pupils: Equal, round and reactive pupils present EOM: EOMs intact bilaterally Neck: Neck: full ROM, no lymphadenopathy and no JVD Thyroid: thyroid normal Lymphatic: no lymphadenopathy noted Resp: Effort & Inspection: normal respiratory effort and able to speak in complete sentences Auscultation: clear to auscultation bilaterally Cardio: Jugular venous distension: no JVD Rate: regular rate Rhythm: regular rhythm Heart sounds: S1 normal heart sound present and S2 normal heart sound present : General: Yes deferred Skin: Rashes: no rashes Wounds: no wounds Neuro: General: patient oriented x3, CN's II-XI intact bilaterally and confusion Cranial nerves: Yes CN's II-XII intact bilaterally and Yes Equal, round and reactive pupils present Cognition (Neuro): normal cognition Speech: normal speech Gait exam (Neuro): Normal gait present Motor exam (neuro): 5/5 motor strength present throughout Extrem: General: normal to inspection, full ROM, no joint enlargement and no pedal edema DS: Data Data Completed and Pending Labs on day of discharge: Labs from last 24 hours 04/05/24 06:13 WBC 8.2 RBC 3.87 L Hgb 11.1 L D Hct 34.0 L MCV 87.9 MCH 28.7 MCHC 32.6 RDW 12.8 Plt Count 206 MPV 9.8 Sodium 139 Potassium 3.8 Chloride 108 H Carbon Dioxide 22 Anion Gap 9 BUN 5 L Creatinine 0.70 Estim Creat Clear Calc 146 Estimated GFR > 60 Glucose 95 Calcium 8.6 Preliminary micro results at discharge 04/03/24 20:55 Urine Culture - Preliminary Urine Clean Catch Escherichia Coli 04/03/24 22:08 Blood Culture - Preliminary Blood 04/03/24 22:08 Blood Culture - Preliminary Blood Discharge Plan Discharge Attending physician on discharge: Kyle Guillaume Discharging Clinician: Lisa Rosado Patient Disposition: Home, Self-Care Activity: may shower Diet: as tolerated and regular Discharge Instructions: Your were treated for pyelonephritis. You were given IV antibiotics and IV fluids. Today we will switch you to oral antibiotics and you will complete the course at home. Please wait to try to become as this antibiotics should be be taken in especially in the first trimester, As discussed, once your urine sensitivities come back and your antibiotics are not appropriate, i will call and let you know- we will switch antibiotics then. If you don't hear from me- assume you are on the correct dose. Please f/u with your PCP and/or OBGYN. Patient Instructions: Antibiotic Form, Low Fat Diet (GEN), Weight Management (GEN), Obesity (GEN) Stand Alone Forms: General Discharge Information Follow-up/Referrals: Nika,Anahi Fields APRN [Primary Care Provider] - 1 Week Discharge Medications: New sulfamethoxazole-trimethoprim 800-160 mg Tablet 1 tab PO Q12HR Qty: 10 0RF Continued norethindrone (contraceptive) 0.35 mg tablet 0.35 mg PO DAILY Qty: 84 3RF propranolol 20 mg tablet 20 mg PO BID Qty: 60 5RF losartan 50 mg tablet 50 mg PO DAILY Qty: 30 5RF ibuprofen 800 mg tablet 800 mg PO TID PRN (Reason: pain) Qty: 30 0RF Date of admission: 04/03/24 23:09 Primary Care Provider: NikaAnahi Admitting Provider: Rafita Greer V. Attending physician on admission: Rafita Greer V. Condition: Stable
[2024-04-05] MEDS: INFLUENZA TRIVALENT VACCINE 45 MCG/0.5 ML SYRINGE IM (14:59)
== END 2024-04-05 15:45 | disposition home or self-care (01) ==
LOC: ANHED 23:29 → ANH2MED 04-05 02:40
PROVIDERS: Nurse Practitioner; Admitting Provider Internal Medicine; Emergency Provider Physician Assistant; PCP Nurse Practitioner Family; Visit Provider Internal Medicine
DX: N12 Tubulo-interstitial nephritis, not specified as acute or chronic (principal); I10 Essential (primary) hypertension; E66.9 Obesity, unspecified; Z68.42 Body mass index [BMI] 45.0-49.9, adult; R00.0 Tachycardia, unspecified; F90.9 Attention-deficit hyperactivity disorder, unspecified type; F41.9 Anxiety disorder, unspecified; F32.A Depression, unspecified; Z23 Encounter for immunization; Z79.3 Long term (current) use of hormonal contraceptives; Z79.899 Other long term (current) drug therapy
CPT/HCPCS: 36415; 74176; 80048; 80053; 81001; 83605; 85025; 85027; 87040; 87077; 87086; 87186; 90471; 90656; 93005; 96361; 96365; 96366; 96367; 96375; 99285; A9270; G0008; G0378; J0696; J2185; J2270; J2405; J7030

== ENCOUNTER 2024-05-30 11:36 | Emergency (ER) | payer OTHER, SELFPAY ==
[2024-05-30 11:58] VITALS: BP 147/96; PULSE 85; RESP 20; TEMP 36.6; O2SAT 100
[2024-05-30 13:30] VITALS: PULSE 79; RESP 15; O2SAT 100
[2024-05-30 14:02] VITALS: BP 113/88; PULSE 80; RESP 14; O2SAT 100
[2024-05-30 14:04] LABS: Basophils Percent Auto 0.4 % (0.2-1.2); Eosinophils Percent Auto 0.4 % (0-4.4); Hemoglobin 13.7 g/dL (12.0-15.0); Immature Granulocyte Absolute 0.04 K/mm3 (0.00-0.031); Immature Granulocyte Percent A 0.5 % (0-0.5); Lymphocytes Absolute Auto 1.58 K/mm3 (0.9-3.2); Lymphocytes Percent Auto 21.5 % (18.3-44.2); Mean Corpuscular HGB Conc 32.6 g/dl (32-36); Mean Corpuscular Hemoglobin 28.5 pg (26-34); Mean Corpuscular Volume 87.5 fl (80-100); Mean Platelet Volume 9.6 fl (7.4-10.4); Monocytes Absolute Auto 0.6 K/mm3 (0.1-0.6); Monocytes Percent Auto 7.8 % (2.6-8.5); Neutrophils Absolute Auto 5.1 K/mm3 (1.3-6.7); Neutrophils Percent Auto 69.4 % (45.5-73.1); Platelet Count Result 306 k/mm3 (150-375); Red Cell Distribution Width 13.2 % (11.5-14.5); White Blood Count 7.4 K/mm3 (4.5-10.0)
--- NOTE | 2024-05-30 14:13 | ED_ITS ---
HPI - Female Genitourinary General Chief complaint: Vaginal Bleeding Stated complaint: + preg test, vag bleeding today Time Seen by Provider: 05/30/24 14:05 History of Present Illness HPI Narrative: 19-year-old female with reported history of hypertension presents to the emergency department for vaginal bleeding in . Patient estimates her last menstrual period was in the beginning of April. She had a positive test at the end of March at a gynecology appointment. States she has not taken another test since and has not followed up with her OB. She states last night she began having brown vaginal discharge and woke up this morning with bright red vaginal bleeding. She states that she woke up around 9- 10am she has had to change her tampon 3 times in the past 4 hours. She states she has passed quarter-size clots. Reports associated lower abdominal cramping and low back cramping. She denies dysuria, hematuria, fever, vomiting. She is reporting some nausea. She is G2, P0, A1. Her OBGYN is Dr. Lucio. Related Data Allergies Allergy/AdvReac Type Severity Reaction Status Date / Time No Known Allergies Allergy Verified 05/30/24 11:37 Review of Systems 2 Review of Systems: All systems reviewed & are unremarkable except as noted in HPI and below PMFSH Past Medical History Medical History ADHD (attention deficit hyperactivity disorder) Nexplanon insertion 07/2018 Nexplanon insertion 08/23/21 Nexplanon removal/reinsertion Nexplanon removal 08/23/21 Nexplanon removal/reinsertion Vaginal discharge Encounter for Nexplanon removal 05/27/2022 Anxiety Tachycardia Hypertension Hypertension Depression Surgical History Surgical History History of tonsillectomy Social History Social History Smoking status: Never smoker Alcohol intake: never Substance use: never Substance use type: former substance user and marijuana Last use: 02/24/2024 Do You Feel Safe in your Home?: Yes Lack of Transportation: No Lack of Food: Never True Current Housing: I Have Housing Concerned About Future Housing: No Difficulty Paying Gas/Electric Bills: No Difficulty Paying for Meds: No Currently Unemployed: No Education: High School Diploma/GED Difficulty w/ Childcare or Family Care: No Living arrangements: other Additional living arrangements comments: grandma Occupation/Education: unemployed Gender identity (if verbalized by the patient): Female Sexual Orientation (if Verbalized by the Patient): Straight or Heterosexual Spiritual care concerns: No Exam 2 Narrative: GENERAL: Well-appearing, well-nourished, and in no acute distress. HEAD: Normocephalic, atraumatic. EYES: EOMI. ENT: Nares clear, no rhinorrhea or epistaxis. Mucous membranes moist. NECK: Supple. CHEST: Clear to auscultation. No respiratory distress. HEART: Regular rate and rhythm. No murmur heard. Normal peripheral pulses. ABDOMEN: Soft, nondistended, normal active bowel sounds. Tenderness to the suprapubic region. No rebound, guarding or rigidity. No CVA tenderness : Deferred EXTREMITIES: Normal range of motion. No edema. SKIN: Warm, dry, no rash. NEURO: No focal deficits. Alert and oriented x3 Course Vital Signs Vital signs: Vital Signs Temperature 97.8 F 05/30/24 11:58 Pulse Rate 85 05/30/24 11:58 Respiratory Rate 20 05/30/24 11:58 Blood Pressure 147/96 H 05/30/24 11:58 Pulse Oximetry 100 05/30/24 11:58 Oxygen Delivery Room Air 05/30/24 11:58 Temperature 97.8 F 05/30/24 11:58 Pulse Rate 80 05/30/24 14:02 Respiratory Rate 14 05/30/24 14:02 Blood Pressure 113/88 05/30/24 14:02 Pulse Oximetry 100 05/30/24 14:02 Oxygen Delivery Room Air 05/30/24 13:30 MDM - Female Genitourinary MDM Narrative Medical decision making narrative: 19-year-old female who is A1 presents to the emergency department for vaginal bleeding in . LMP estimated beginning of March, positive test at gynecology appointment was in of March. Vitals with elevated blood pressure 147/96 which has since normalized. She is afebrile and nontoxic appearing. Exam is significant for the above. Lab work is remarkable for <2.39 beta hCG quant. CBC without leukocytosis or anemia. Chemistries are unremarkable. UA with blood, no wbc's, leuk esterase or nitrates concerning for urinary tract infection. Rh type positive, RhoGAM not required. Patient updated on workup. Discussed she is not currently . Discussed possibility of false-positive test her gynecology appointment given she has not had any symptoms of miscarriage until today and that she would likely still have a positive quant if she had become . She received Tylenol, IM Toradol and p.o. Zofran with resolution of cramping and nausea. States her bleeding has significantly improved and is much mutuel teller on re-evaluation. Offered a pelvic exam, however patient politely declined given symptoms have greatly improved. Suspect symptoms are secondary to current menstrual cycle. Will provide ibuprofen and Zofran for symptomatic control. Return precautions discussed. She is agreeable to plan verbalized understanding. Discharged in stable condition. Lab Data 05/30/24 13:58 05/30/24 13:58 Labs: Lab Results 05/30/24 05/30/24 Range/Units 13:58 15:13 WBC 7.4 (4.5-10.0) K/mm3 RBC 4.80 (4.2-5.4) M/mm3 Hgb 13.7 (12.0-15.0) g/dL Hct 42.0 (37.0-47.0) % MCV 87.5 (80-100) fl MCH 28.5 (26-34) pg MCHC 32.6 (32-36) g/dl RDW 13.2 (11.5-14.5) % Plt Count 306 (150-375) k/mm3 MPV 9.6 (7.4-10.4) fl Immature Gran % (Auto) 0.5 (0-0.5) % Neut % (Auto) 69.4 (45.5-73.1) % Lymph % (Auto) 21.5 (18.3-44.2) % Hanson % (Auto) 7.8 (2.6-8.5) % Eos % (Auto) 0.4 (0-4.4) % Baso % (Auto) 0.4 (0.2-1.2) % Lymph # (Auto) 1.58 (0.9-3.2) K/mm3 Hanson # (Auto) 0.6 (0.1-0.6) K/mm3 Eos # (Auto) 0.0 (0-0.3) K/mm3 Baso # (Auto) 0.0 (0.0-0.1) K/mm3 Abs Immat Gran (auto) 0.04 H (0.00-0.031) K/mm3 Absolute Neuts (auto) 5.1 (1.3-6.7) K/mm3 Absolute Nucleated RBC 0.000 (0.0-0.012) K/mm3 Nucleated RBC % 0.0 (0.0-0.2) % PT 13.4 (11.1-14.7) Seconds INR 1.0 APTT 29.3 (22.3-36.8) Seconds Sodium 141 (137-145) mmol/L Potassium 4.1 (3.4-5.0) mmol/L Chloride 109 H (98-107) mmol/L Carbon Dioxide 24 (22-30) mmol/L Anion Gap 8 (4-12) mmol/L BUN 9 (7-17) mg/dL Creatinine 0.70 (0.7-1.0) mg/dL Estim Creat Clear Calc 145 ml/min Estimated GFR > 60 (59 - ) Glucose 81 (65-110) mg/dL Calcium 9.6 (8.4-10.2) mg/dL Total Bilirubin 0.5 (0.2-1.3) mg/dL AST 21 (14-36) U/L ALT 23 (6-35) U/L Alkaline Phosphatase 108 (38-126) U/L Total Protein 8.0 (6.3-8.2) g/dL Albumin 4.4 (3.5-5.1) g/dL Beta HCG, Quant < 2.39 mIU/ML Urine Color Yellow (Yellow) Urine Appearance Clear (Clear) Urine pH 5.0 (5.0-9.0) Ur Specific [place] 1.019 (1.001-1.035) Urine Protein Negative (Negative) mg/dL Urine Glucose (UA) Negative (Negative) mg/dL Urine Ketones Negative (Negative) mg/dL Ur Blood (Man) 2+ H (Negative) Urine Nitrate Negative (Negative) Urine Bilirubin Negative (Negative) Urine Urobilinogen 0.2 (<2.0) mg/dL Leukocyte Esterase Rfl Negative (Negative) LACY/UL Urine RBC 11-20 H (0-2) /hpf Urine WBC 0-5 (0-3) /hpf Ur Squamous Epith Cells None seen (Few) /hpf Urine Bacteria None seen /hpf Urine Casts 0-2 Blood Type O Positive Antibody Screen Negative Screen Not Reportable Baby's Blood Type Not Reportable Baby's RUBY Not Reportable Doses of RhIg Required 0 Discharge Plan Discharge Clinical Impression: Vaginal bleeding Patient Disposition: Home, Self-Care Condition: Stable Instructions: Antibiotic Form, Abnormal (Dysfunctional) Uterine Bleeding (ED) Additional Instructions: Your evaluated in the emergency department for vaginal bleeding and concerns for . Your test is negative. Your blood work is reassuring. Here bleeding is likely secondary to your menstrual cycle. Please take ibuprofen as needed for pain. Return to the emergency department if you saturate more than 1 pad or tampon an hour, a become lightheaded or lose consciousness, or other concerning symptoms. Patient Language: [place] Islander Prescriptions: New ondansetron 4 mg tablet,disintegrating 4 mg PO Q8H Qty: 14 0RF ibuprofen 800 mg tablet 800 mg PO TID PRN (Reason: pain) Qty: 20 0RF No Action norethindrone (contraceptive) 0.35 mg tablet 0.35 mg PO DAILY Qty: 84 3RF ibuprofen 800 mg tablet 800 mg PO TID PRN (Reason: pain) Qty: 30 0RF sulfamethoxazole-trimethoprim 800-160 mg Tablet 1 tab PO Q12HR Qty: 10 0RF propranolol 20 mg tablet See Rx Instructions .ROUTE .COMPLEX Qty: 180 2RF Dose Instruction: TAKE 1 TABLET BY MOUTH TWICE DAILY Rx Instructions: TAKE 1 TABLET BY MOUTH TWICE DAILY losartan 50 mg tablet See Rx Instructions .ROUTE .COMPLEX Qty: 90 2RF Dose Instruction: TAKE 1 TABLET BY MOUTH DAILY Rx Instructions: TAKE 1 TABLET BY MOUTH DAILY Follow-up/Referrals: Nika,Anahi Fields, STERILE PROCESSING TECHNICIAN [Primary Care Provider] -
[2024-05-30 14:15] LABS: Alanine Aminotransferase 23 U/L (6-35); Albumin Level 4.4 g/dL (3.5-5.1); Alkaline Phosphatase 108 U/L (38-126); Anion Gap 8 mmol/L (4-12); Aspartate Amino Transferase 21 U/L (14-36); Bilirubin,Total 0.5 mg/dL (0.2-1.3); Blood Urea Nitrogen 9 mg/dL (7-17); Calcium 9.6 mg/dL (8.4-10.2); Carbon Dioxide 24 mmol/L (22-30); Chloride 109 mmol/L (98-107); Estimated CRCL calculation 145 ml/min; Estimated Glomerular Filt Rate > 60; Glucose 81 mg/dL (65-110); Potassium 4.1 mmol/L (3.4-5.0); Prothrombin Time 13.4 Seconds (11.1-14.7); Sodium 141 mmol/L (137-145)
[2024-05-30 14:16] LABS: Partial Thromboplastin Time 29.3 Seconds (22.3-36.8)
[2024-05-30 14:32] LABS: Beta HCG Quantitative < 2.39 mIU/ML
[2024-05-30] MEDS: ACETAMINOPHEN 500 MG TABLET 1000 MG PO (14:56)
[2024-05-30] MEDS: ONDANSETRON HCL ODT 4 MG TABLET PO (15:13)
[2024-05-30] MEDS: KETOROLAC 30 MG/ML VIAL (*BKC) IM (15:13)
[2024-05-30 15:23] LABS: Add Urine Microscopic? YES; Appearance Urine Clear (Clear); Bacteria Urine None Seen /hpf; Bilirubin Urine Negative (Negative); Blood Urine 2+ (Negative); Color Urine Yellow (Yellow); Glucose Urine UA Negative (Negative); Ketones Urine Negative (Negative); Leukocyte Esterase Ur Negative LEU/UL (Negative); Nitrate Urine Negative (Negative); Non Pathogenic Casts 0-2; Protein Urine Negative (Negative); Specific Grav Ur 1.019 (1.001-1.035); Squamous Epithelial Cell Urine None Seen /hpf (Few); Urobilinogen Urine 0.2 mg/dL (<2.0); WBC Urine 0-5 /hpf (0-3)
[2024-05-30 15:56] VITALS: BP 113/76; PULSE 81; RESP 16; O2SAT 100
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
--- OUTSIDE RECORDS SUMMARY | 2024-06-03 10:44 | XMS_ITS | Encounter Summary ---
Author Organization [facility] Address [address] [place] [address] Phone Care Team Providers Care Sternman Name Role Phone Mary Alice Liu MD Primary Care Provider [phone] Anahi Maher NP Primary Care Provider [phone] Tawanda Lopez DO Unavailable [phone] Arianna Lucio MD Unavailable [phone] Reason for Referral * Cardiology (Routine) - Closed Specialty Diagnoses / Procedures Referred By Radha diaz Referred To Contact Diagnoses Elevated blood pressure reading without diagnosis of hypertension Procedures 24 hour Blood Pressure Monitor Nani Bains MD [address] [place] [address] [address] [place] [address] Phone: tel: fax: External Order Referral ID Status Reason Start Date Expiration Date Visits Re quested Visits Authorized [id number] Closed 04/11/2020 05/11/2021 1 1 SIVE GRADER Encounter Details Date Type Department Care Team (Late st Contact Info) Description 04/11/2020 Orders Only [facility] 2nd [place] [address] [place] [id number] Kimi De La Torre RN Elevated blood pressure reading without diagnosis of hypertension (Primary Dx) Social History Tobacco Use Types Packs/Day Years Used Date Smoking Tobacco: Never Smokeless Tobacco: Never Comments Unknown Sex and Gender Information Value Date Recorded Sex Assigned at Not on file Legal Sex Female 9:25 AM ABRASIVE GRADER Gender Identity Female 02/28/2024 1:35 PM CDT Sexual Orientation Not on file documented as of this encounter Plan of Treatment Pending Results Name Type Priority Associated Diagnoses Date /Time 24 hour Blood Pressure Monitor Cardiac Services Routine Elevated blood pressure reading without diagnosis of hypertension 04/01/2020 7:13 AM ABRASIVE GRADER documented as of this encounter Visit Diagnoses Diagnosis Elevated blood pressure reading without diagnosis of hypertension- Primary documented in this encounter Care Teams Sternman Relationship Specialty Start Date End Date Mary Alice Liu MD [address] [place] [address] PCP - General Pediatrics 01/13/20 02/11/24 Anahi Maher NP [address] [place], [place] [id number] PCP - General Family Medicine 02/12/24 Tawanda Lopez DO [address] [place] [address] Referring Physician Internal Medicine 02/12/24 Arianna Lucio MD [address] [place] [address] Obstetrics and Gynecology 02/12/24 documented as of this encounter
--- OUTSIDE RECORDS SUMMARY | 2024-06-03 10:44 | XMS_ITS | Encounter Summary ---
Author Organization [facility] Address [address] [place] [address] Phone Care Team Providers Care Ophthalmic Technologist Name Role Phone Mary Alice Liu MD Primary Care Provider [phone] Anahi Maher NP Primary Care Provider [phone] Tawanda Lopez DO Unavailable [phone] Arianna Lucio MD Unavailable [phone] Encounter Details Date Type Department Care Team (Late st Contact Info) Description 10/16/2021 Telephone [facility] Pediatric Endocrinology [facility] [address] [place] [address] [place] [address] Lenka Marti [facility] Social History Tobacco Use Types Packs/Day Years Used Date Smoking Tobacco: Never Smokeless Tobacco: Never Comments Unknown Sex and Gender Information Value Date Recorded Sex Assigned at Not on file Legal Sex Female 9:25 AM COMBATANT DIVER OFFICER Gender Identity Female 02/28/2024 1:35 PM CDT Sexual Orientation Not on file documented as of this encounter Plan of Treatment Not on file documented as of this encounter Visit Diagnoses Not on filedocumented in this encounter Care Teams Ophthalmic Technologist Relationship Specialty Start Date End Date Mary Alice Liu MD [address] [place] [address] PCP - General Pediatrics 01/13/20 02/11/24 Anahi Maher NP [address] [place] [address] PCP - General Family Medicine 02/12/24 Tawanda Lopez DO [address] [place] [address] Referring Physician Internal Medicine 02/12/24 Arianna Lucio MD [address] [place] [address] Obstetrics and Gynecology 02/12/24 documented as of this encounter
--- OUTSIDE RECORDS SUMMARY | 2024-06-03 10:44 | XMS_ITS | Referral Summary ---
Author Organization [facility] Address [address] [place] [address] Care Team Providers Care Graduate Intern Name Role Phone Anahi Maher NP Primary Care Provider [phone] Tawanda Lopez DO Unavailable [phone] Arianna Lucio MD Unavailable [phone] Encounters Date Type Department Care Team Description 04/22/2024 1:00 PM ACCOUNTS MANAGER Office Visit [facility] Medical [facility] Primary Care at [address] [address] Eli Qureshi NP UTI symptoms (Primary Dx) 04/21/2024 Telephone [facility] Medical [facility] Primary Care at [address] [address] Anahi Maher NP ROJAS Questions 04/21/2024 Telephone [facility] Primary Care at [address] [address] Anahi Maher NP Appointment (Pt needs to reschedule appt due to provider leaving the office early 04/21/2024) 04/05/2024 Orders Only [facility] Medical [facility] Primary Care at [address] [address] Anne-Marie Donaldson MD 03/15/2024 Orders Only [facility] Primary Care at [address] [address] Anne-Marie Donaldson MD from Last 3 Months Allergies No known active allergies Medications losartan [...] 04/22/2024 Assessment & Plan (04/26/2024 9:52 AM ACCOUNTS MANAGER): Urine dip looks okay, but she is [...] HIV and syphilis Recommended trauma-informed counseling 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 Patient agreeable to Psychiatry, referral placed. Immunizations Name Administration Dates Next Due DTaP / Hep B / IPV 2004,2004, 005 DTaP, Unspecified 11/20/2009,11/04/2007 Hep A, Unspecified 11/04/2007,02/12/2007 HiB 05/09/2005,2004,2004 Influenza, Quadrivalent, Spl it, Preservative Free, Intramuscular 01/18/2019 Influenza, Unspecified 04/05/2024,03/05/2007 MMR 11/20/2009,05/09/2005 Meningococcal Conjugate (Menveo) 01/22/2016 Pneumococcal Conjugate PCV 13 05/09/2005 ,2004,2004,06/02 Polio, Unspecified 11/20/2009 Tdap 01/18/2019,01/22/2016 Varicella 11/20/2009,05/09/2005 Social History Tobacco Use Types Packs/Day Years Used Date Smoking Tobacco: Never Smokeless Tobacco: Never PHQ-2 Answer Date Recorded PHQ-2 Total Score (If total score is 3 or more points, staff should administer the PHQ-9) 6 02/12/2024 Comments Unknown Sex and Gender Information Value Date Recorded Sex Assigned at Not on file Legal Sex Female 9:25 AM ACCOUNTS MANAGER Gender Identity Female 02/28/2024 1:35 PM CDT Sexual Orientation Not on file Last Filed Vital Signs Vital Sign Reading Time Taken Comments Blood Pressure 102/78 04/22/2024 1:08 PM ACCOUNTS MANAGER Pulse 84 04/22/2024 1:08 PM ACCOUNTS MANAGER Temperature 36.3 ??C (97.3 ??F) 04/22/2024 1:08 PM CS T Respiratory Rate 18 04/22/2024 1:08 PM ACCOUNTS MANAGER Oxygen Saturation 98% 04/22/2024 1:08 PM ACCOUNTS MANAGER Inhaled Oxygen Concentration - - Weight 121.7 kg (268 lb 4.8 oz) 04/22/2024 1:08 PM ACCOUNTS MANAGER Height 167.6 cm (5' 6 ) 04/22/2024 1:08 PM ACCOUNTS MANAGER Body Mass Index 43.3 04/22/2024 1:08 PM ACCOUNTS MANAGER Plan of Treatment Not on file Procedures Procedure Name Priority Date/Time Associated Diagnosis Comments POCT URINALYSIS DIPSTICK Routine 04/22/2024 1:21 PM ACCOUNTS MANAGER UTI symptoms CT ABDOMEN PELVIS WO CONTRAST Schedule Routine, Read Routine (OP Routine) 04/03/2024 11:36 AM ACCOUNTS MANAGER XR CHEST 1 VIEW Schedule Routine, Read Routine (OP Routine) 03/14/2024 9:11 AM ACCOUNTS MANAGER HEPATITIS C ANTIBODY Routine 02/12/2024 11:22 AM CDT Encounter for hepatitis C screening test for low risk patient from Last 3 Months or Most Recently Relevant to Health Maintenance Results * POCT urinalysis dipstick (04/22/2024 1:21 PM ACCOUNTS MANAGER) Color, Urine, POC Yellow Clarity, ur, POC Clear Clear Glucose, ur, POC Negative Negative MG/DL Bilirubin, ur, POC Negative Negative, Small, Moderate, Large Ketones, ur, POC Negative Negative Specific Eden, POC 1.025 1.003 - 1.030 Blood, ur, POC Negative Negative pH, ur, POC 6.0 5.0 - 8.0 Protein, ur, POC Negative Negative Urobilinogen, urine, POC 0.2 0.2 - 1.0 mg/dL Nitrite, ur, POC Negative Negative Leukocytes, ur, POC Negative Negative Lot Number 0 Urine 04/22/2024 1:21 PM ACCOUNTS MANAGER Eli Qureshi NP POINT OF CARE TEST ORDERABLES Fi nal Result * CT Abdomen Pelvis WO Contrast (04/03/2024 11:36 AM ACCOUNTS MANAGER) Anatomical Region Laterality Modality Body N/A Computed Tomogra phy Historical Provider IMG CT PROCEDURES Final R esult * XR Chest 1 View (03/14/2024 9:11 AM ACCOUNTS MANAGER) Anatomical Region Laterality Modality Body, Chest N/A Radiographic Sharifa ging Historical Provider IMG XR PROCEDURES Final R esult * Hepatitis [...] MICROBIOLOGY - GENERAL ORDER ASHELY Final Result [facility] [id number] Department [place] [id number] from Last 3 Months or Most Recently Relevant to Health Maintenance Insurance [facility] H[facility]PPO Address: [facility] [address] [place] [address] [facility]PPO Address: [facility] [id number] [place] [id number] [facility] CHO[facility]US [facility] H[facility]/PPO Address: [address] [place] [address] Care Teams Graduate Intern Relationship Specialty Start Date End Date Anahi Maher NP [address] [place], [place] [id number] PCP - General Family Medicine 02/12/24 Tawanda Lopez DO [address] [place] [address] Referring Physician Internal Medicine 02/12/24 Arianna Lucio MD [address] [place] [address] Obstetrics and Gynecology 02/12/24
== END 2024-05-30 15:54 | disposition home or self-care (01) ==
PROVIDERS: Emergency Medicine; Emergency Provider Physician Assistant; PCP Nurse Practitioner Family
DX: N93.9 Abnormal uterine and vaginal bleeding, unspecified (principal); I10 Essential (primary) hypertension; Z79.899 Other long term (current) drug therapy; Z79.3 Long term (current) use of hormonal contraceptives
CPT/HCPCS: 36415; 80053; 81001; 84702; 85025; 85461; 85610; 85730; 86850; 86900; 86901; 96361; 96372; 96374; 99284; A9270; J1885

== ENCOUNTER 2024-07-22 23:52 | Emergency (ER) | payer OTHER, SELFPAY ==
--- OUTSIDE RECORDS SUMMARY | 2024-07-22 23:54 | XMS_ITS | Encounter Summary ---
Author Organization [facility] Address [address] [place] [address] Phone Care Team Providers Care Personal Computer Network Analyst Name Role Phone Mary Alice Liu MD Primary Care Provider [phone] Anahi Maher NP Primary Care Provider [phone] Tawanda Lopez DO Unavailable [phone] Arianna Lucio MD Unavailable [phone] Reason for Referral * Cardiology (Routine) - Closed Specialty Diagnoses / Procedures Referred By Radha diaz Referred To Contact Diagnoses Elevated blood pressure reading without diagnosis of hypertension Procedures 24 hour Blood Pressure Monitor Nani Bains MD [address] [place] [address] [address] [place] [address] Phone: tel: fax: External Order Referral ID Status Reason Start Date Expiration Date Visits Re quested Visits Authorized [id number] Closed 04/11/2020 05/11/2021 1 1 UCE MANAGER Encounter Details Date Type Department Care Team (Late st Contact Info) Description 04/11/2020 Orders Only [facility] Pediatric Nephrology [facility] 2nd [place] [address] [place] [id number] Kimi De La Torre RN Elevated blood pressure reading without diagnosis of hypertension (Primary Dx) Social History Tobacco Use Types Packs/Day Years Used Date Smoking Tobacco: Never Smokeless Tobacco: Never Comments Unknown Sex and Gender Information Value Date Recorded Sex Assigned at Not on file Legal Sex Female 9:25 AM PRODUCE MANAGER Gender Identity Female 02/28/2024 1:35 PM CDT Sexual Orientation Not on file documented as of this encounter Plan of Treatment Pending Results Name Type Priority Associated Diagnoses Date /Time 24 hour Blood Pressure Monitor Cardiac Services Routine Elevated blood pressure reading without diagnosis of hypertension 04/01/2020 7:13 AM PRODUCE MANAGER documented as of this encounter Visit Diagnoses Diagnosis Elevated blood pressure reading without diagnosis of hypertension- Primary documented in this encounter Care Teams Personal Computer Network Analyst Relationship Specialty Start Date End Date Mary Alice Liu MD [address] [place] [address] PCP - General Pediatrics 01/13/20 02/11/24 Anahi Maher NP [address] [place], [place] [id number] PCP - General Family Medicine 02/12/24 Tawanda Lopez DO [address] [place] [address] Referring Physician Internal Medicine 02/12/24 Arianna Lucio MD [address] [place] [address] Obstetrics and Gynecology 02/12/24 documented as of this encounter
--- OUTSIDE RECORDS SUMMARY | 2024-07-22 23:54 | XMS_ITS | Clinical Summary ---
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 Immunizations Immunization Administration Dates Next Due DTaP / Hep [...] deficit hyperactivity disorder) Disruptive mood dysregulation disorder Oppositional defiant disorder Adjustment disorder with depressed [...] staff should administer the PHQ-9) 6 02/12/2024 PHQ-9 Answer Date Recorded PHQ-9 Total Score 16 02/12/2024 Comments Unknown Sex and Gender Information Value Date Recorded Sex Assigned at Not on file Legal Sex Female 9:25 AM PROJECT ACCOUNT MANAGER Gender Identity Female 02/28/2024 1:35 PM CDT Sexual Orientation Not on file Obstetrics History Last Filed Vital Signs Vital Sign Reading Time Taken Comments Blood Pressure 102/78 04/22/2024 1:08 PM PROJECT ACCOUNT MANAGER Pulse 84 04/22/2024 1:08 PM PROJECT ACCOUNT MANAGER Temperature 36.3 C (97.3 F) 04/22/2024 1:08 PM PROJECT ACCOUNT MANAGER Respiratory Rate 18 04/22/2024 1:0 8 PM PROJECT ACCOUNT MANAGER Oxygen Saturation 98% 04/22/2024 1:08 PM PROJECT ACCOUNT MANAGER Inhaled Oxygen Concentration - - Weight 121.7 kg (268 lb 4.8 oz) 04/22/2024 1:08 PM PROJECT ACCOUNT MANAGER Height 167.6 cm (5' 6 ) 04/22/2024 1:08 PM PROJECT ACCOUNT MANAGER Body Mass Index 43.3 04/22/2024 1:08 PM PROJECT ACCOUNT MANAGER Plan of Treatment Health Maintenance Due Date Last Done Comments HPV Vaccines (1 - 3-dose series) 2019 Meningococcal B Vaccine (1 of 2 - Standard) 2020 Regular Well Visit/Exam 18-64 2022 Covid-19 Vaccine ( season) 2024 10/16/2021, 10/27/2020, 10/03/2020 Depression Screening 02/11/2025 02/12/2024, 02/12/20 24 DTaP/Tdap/Td Vaccine (8 - Td or Tdap) 01/18/2029 01/18/2019, 01/22/2016, 11/20/2009, Additional history exists Hepatitis B Screening Completed 2004 , 2004, 2004 Pneumococcal vaccine <65 Completed 005, 2004, 2004, Additional history exists Varicella Vaccines Completed 11/20/2009, 05/09/2005 Meningococcal Vaccine Aged Out 01/22/2016 No ashkan anna eligible based on patient's age to complete this topic Hepatitis C Screening Completed 02/12/2024 Influenza Vaccine Completed 04/05/2024, , 03/05/2007 Procedures Procedure Name Priority Date/Time Associated Diagnosis Comments HEPATITIS C ANTIBODY Routine 02/12/2024 11:22 AM CDT Encounter for hepatitis C screening test for low risk patient from Last 3 Months or Most Recently Relevant to Health Maintenance Results * Hepatitis C antibody Blood (02/12/2024 11:22 AM CDT) Hep C Ab Nonreactive Nonreactive Comment: Interpretive Data Nonreactive: Antibodies to HCV not detected. Does NOT exclude the possibility of recent exposure to HCV. Equivocal: Equivocal for HCV antibodies. Supplemental molecular testing will be automatically performed to determine infection status in accordance with current CDC screening recommendations. Reactive: Positive for HCV antibodies. This may represent current or past HCV infection. Supplemental molecular testing will be automatically performed to determine current infection status in accordance with current CDC screening recommendations. Interpretive data was last revised on 2019. Blood 02/12/2024 11:2 2 AM CDT 02/12/2024 9:30 PM CDT us Anahi Maher NP LAB MICROBIOLOGY - GENERAL ORDER ASHELY Final Result [facility] [id number] [address] Department [place] [address] from Last 3 Months or Most Recently Relevant to Health Maintenance Insurance [facility] CHOICE PLUS [facility] H[facility]/PPO Address: [address] [address] [place] [address] [facility] CHOICE PLUS [facility] H[facility]/PPO Address: [address] [address] [place] [address] [facility] CHOICE PLUS [facility] H[facility]/PPO Address: [facility] [address] [place] [phone] Care Teams Mold Design Engineer Relationship Specialty Start Date End Date Anahi Maher NP [address] [place] [address] PCP - General Family Medicine 02/12/24 Tawanda Lopez DO [address] [place] [address] Referring Physician Internal Medicine 02/12/24 Arianna Lucio MD [address] [place] [address] Obstetrics and Gynecology 02/12/24
--- OUTSIDE RECORDS SUMMARY | 2024-07-22 23:54 | XMS_ITS | Referral Summary ---
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 Repeat HIV [...] on file Legal Sex Female 9:25 AM SANITATION TRUCK DRIVER Gender Identity Female 02/28/2024 1:35 PM CDT Sexual Orientation Not on file Last Filed Vital Signs Vital Sign Reading Time Taken Comments Blood Pressure 102/78 04/22/2024 1:08 PM SANITATION TRUCK DRIVER Pulse 84 04/22/2024 1:08 PM SANITATION TRUCK DRIVER Temperature 36.3 C (97.3 F) 04/22/2024 1:08 PM SANITATION TRUCK DRIVER Respiratory Rate 18 04/22/2024 1:08 PM SANITATION TRUCK DRIVER Oxygen Saturation 98% 04/22/2024 1:08 PM SANITATION TRUCK DRIVER Inhaled Oxygen Concentration - - Weight 121.7 kg (268 lb 4.8 oz) 04/22/2024 1:08 PM SANITATION TRUCK DRIVER Height 167.6 cm (5' 6 ) 04/22/2024 1:08 PM SANITATION TRUCK DRIVER Body Mass Index 43.3 04/22/2024 1:08 PM SANITATION TRUCK DRIVER Plan of Treatment Not on file Procedures [...] MICROBIOLOGY - GENERAL ORDER ASHELY Final Result Performing Organization Address City/State/ZIP [place] Phone Number [facility] [phone] [address] Department [place] [address] from Last 3 Months or Most Recently Relevant to Health Maintenance Insurance [facility] CHOICE PLUS [facility] CHOICE PLUS [address] CHOICE PLUS Care Teams Manager Medicare Marketing Relationship Specialty Start Date End Date Anahi Maher NP [address] [place] [address] PCP - General Family Medicine 02/12/24 Tawanda Lopez DO [address] [place] [address] Referring Physician Internal Medicine 02/12/24 Arianna Lucio MD [address] [place] [address] Obstetrics and Gynecology 02/12/24
--- OUTSIDE RECORDS SUMMARY | 2024-07-22 23:54 | XMS_ITS | Encounter Summary ---
Author Organization [facility] Address [address] [place] [address] Phone Care Team Providers Care Rehabilitation Case Coordinator Name Role Phone Mary Alice Liu MD Primary Care Provider [phone] Anahi Maher NP Primary Care Provider [phone] Tawanda Lopez DO Unavailable [phone] Arianna Lucio MD Unavailable [phone] Encounter Details Date Type Department Care Team (Late st Contact Info) Description 10/16/2021 Telephone [facility] Pediatric Endocrinology [facility] 2nd [place] [address] [place] [address] Lenka Marti [facility] Social History Tobacco Use Types Packs/Day Years Used Date Smoking Tobacco: Never Smokeless Tobacco: Never Comments Unknown Sex and Gender Information Value Date Recorded Sex Assigned at Not on file Legal Sex Female 9:25 AM JUNIOR ELECTRICAL ENGINEER Gender Identity Female 02/28/2024 1:35 PM CDT Sexual Orientation Not on file documented as of this encounter Plan of Treatment Not on file documented as of this encounter Visit Diagnoses Not on filedocumented in this encounter Care Teams Rehabilitation Case Coordinator Relationship Specialty Start Date End Date Mary Alice Liu MD [address] [place] [address] PCP - General Pediatrics 01/13/20 02/11/24 Anahi Maher NP [address] [place] [address] PCP - General Family Medicine 02/12/24 Tawanda Lopez DO [address] [place] [address] Referring Physician Internal Medicine 02/12/24 Airanna Lucio MD [address] [place] [address] Obstetrics and Gynecology 02/12/24 documented as of this encounter
[2024-07-22 23:55] VITALS: BP 146/86; PULSE 82; RESP 16; TEMP 36.8; O2SAT 100
[2024-07-23 00:58] VITALS: BP 121/99; PULSE 98; RESP 18; O2SAT 100
--- OUTSIDE RECORDS SUMMARY | 2024-07-23 01:01 | XMS_ITS | Clinical Summary ---
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 Repeat HIV [...] on file Legal Sex Female 9:25 AM APPAREL EMBROIDERY DIGITIZER Gender Identity Female 02/28/2024 1:35 PM CDT Sexual Orientation Not on file Obstetrics History Last Filed Vital Signs Vital Sign Reading Time Taken Comments Blood Pressure 102/78 04/22/2024 1:08 PM APPAREL EMBROIDERY DIGITIZER Pulse 84 04/22/2024 1:08 PM APPAREL EMBROIDERY DIGITIZER Temperature 36.3 C (97.3 F) 04/22/2024 1:08 PM APPAREL EMBROIDERY DIGITIZER Respiratory Rate 18 04/22/2024 1:0 8 PM APPAREL EMBROIDERY DIGITIZER Oxygen Saturation 98% 04/22/2024 1:08 PM APPAREL EMBROIDERY DIGITIZER Inhaled Oxygen Concentration - - Weight 121.7 kg (268 lb 4.8 oz) 04/22/2024 1:08 PM APPAREL EMBROIDERY DIGITIZER Height 167.6 cm (5' 6 ) 04/22/2024 1:08 PM APPAREL EMBROIDERY DIGITIZER Body Mass Index 43.3 04/22/2024 1:08 PM APPAREL EMBROIDERY DIGITIZER Plan of Treatment Health Maintenance Due Date [...] - GENERAL ORDER ASHELY Final Result [facility] [id number] [address] Department [place] [address] from Last 3 Months or Most Recently Relevant to Health Maintenance Insurance [facility] CHOICE PL[facility] CHOICE [facility] CHOICE PLUS [place] [id number] Care Teams Decorating Consultant Relationship Specialty Start Date End Date Anahi Maher NP [address] [place] [address] PCP - General Family Medicine 02/12/24 Tawanda Lopez DO [address] [place] [address] Referring Physician Internal Medicine 02/12/24 Arianna Lucio MD [address] [place] [address] Obstetrics and Gynecology 02/12/24
--- OUTSIDE RECORDS SUMMARY | 2024-07-23 01:01 | XMS_ITS | Encounter Summary ---
Author Organization [facility] Address [address] [place] [address] Phone Care Team Providers Care Hands Assembler Name Role Phone Mary Alice Liu MD Primary Care Provider [phone] Anahi Maher NP Primary Care Provider [phone] Tawanda Lopez DO Unavailable [phone] Arianna Lucio MD Unavailable [phone] Reason for Referral * Cardiology (Routine) - Closed Specialty Diagnoses / Procedures Referred By Radha diaz Referred To Contact Diagnoses Elevated blood pressure reading without diagnosis of hypertension Procedures 24 hour Blood Pressure Monitor Nani Bains MD [address] [place] [address] [address] [place] [address] Phone: tel: fax: External Order Referral ID Status Reason Start Date Expiration Date Visits Re quested Visits Authorized [id number] Closed 04/11/2020 05/11/2021 1 1 ECT LEADER Encounter Details Date Type Department Care Team (Late st Contact Info) Description 04/11/2020 Orders Only [facility] Pediatric Nephrology [facility] 2nd [place] [address] [place] [address] Kimi De La Torre RN Elevated blood pressure reading without diagnosis of hypertension (Primary Dx) Social History Tobacco Use Types Packs/Day Years Used Date Smoking Tobacco: Never Smokeless Tobacco: Never Comments Unknown Sex and Gender Information Value Date Recorded Sex Assigned at Not on file Legal Sex Female 9:25 AM PROJECT LEADER Gender Identity Female 02/28/2024 1:35 PM CDT Sexual Orientation Not on file documented as of this encounter Plan of Treatment Pending Results Name Type Priority Associated Diagnoses Date /Time 24 hour Blood Pressure Monitor Cardiac Services Routine Elevated blood pressure reading without diagnosis of hypertension 04/01/2020 7:13 AM PROJECT LEADER documented as of this encounter Visit Diagnoses Diagnosis Elevated blood pressure reading without diagnosis of hypertension- Primary documented in this encounter Care Teams Hands Assembler Relationship Specialty Start Date End Date Mary Alice Liu MD [address] [place] [address] PCP - General Pediatrics 01/13/20 02/11/24 Anahi Maher NP [address] [place], [place] [id number] PCP - General Family Medicine 02/12/24 Tawanda Lopez DO [address] [place] [address] Referring Physician Internal Medicine 02/12/24 Arianna Lucio MD [address] [place] [address] Obstetrics and Gynecology 02/12/24 documented as of this encounter
--- OUTSIDE RECORDS SUMMARY | 2024-07-23 01:01 | XMS_ITS | Referral Summary ---
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 Repeat HIV [...] on file Legal Sex Female 9:25 AM STUDENT LIFE ADVISOR Gender Identity Female 02/28/2024 1:35 PM CDT Sexual Orientation Not on file Last Filed Vital Signs Vital Sign Reading Time Taken Comments Blood Pressure 102/78 04/22/2024 1:08 PM STUDENT LIFE ADVISOR Pulse 84 04/22/2024 1:08 PM STUDENT LIFE ADVISOR Temperature 36.3 C (97.3 F) 04/22/2024 1:08 PM STUDENT LIFE ADVISOR Respiratory Rate 18 04/22/2024 1:08 PM STUDENT LIFE ADVISOR Oxygen Saturation 98% 04/22/2024 1:08 PM STUDENT LIFE ADVISOR Inhaled Oxygen Concentration - - Weight 121.7 kg (268 lb 4.8 oz) 04/22/2024 1:08 PM STUDENT LIFE ADVISOR Height 167.6 cm (5' 6 ) 04/22/2024 1:08 PM STUDENT LIFE ADVISOR Body Mass Index 43.3 04/22/2024 1:08 PM STUDENT LIFE ADVISOR Plan of Treatment Not on file Procedures [...] Final Result Performing Organization Address City/State/ZIP [place] Phone Number [facility] [address] Department [place] [address] from Last 3 Months or Most Recently Relevant to Health Maintenance Insurance [facility]/PPO Address: [facility] [address] [place] [address] [facility] [employer]/PPO Address: [facility] [address] [employer] [facility] [employer]O Address: [address] [place] [address] Care Teams Acute Care Occupational Therapist Relationship Specialty Start Date End Date Anahi Maher NP [address] [place] [address] PCP - General Family Medicine 02/12/24 Tawanda Lopez DO [address] [place] [address] Referring Physician Internal Medicine 02/12/24 Arianna Lucio MD [address] [place] [address] Obstetrics and Gynecology 02/12/24
--- OUTSIDE RECORDS SUMMARY | 2024-07-23 01:01 | XMS_ITS | Encounter Summary ---
Author Organization [facility] Address [address] [place] [address] Phone Care Team Providers Care Adjunct Spanish Instructor Name Role Phone Mary Alice Liu MD Primary Care Provider Anahi Maher NP Primary Care Provider [phone] Tawanda Lopez DO Unavailable Arianna Lucio MD Unavailable [phone] Encounter Details Date Type Department Care Team (Late st Contact Info) Description 10/16/2021 Telephone [facility] Pediatric Endocrinology 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 Gender Identity Female 02/28/2024 1:35 PM CDT Sexual Orientation Not on file documented as of this encounter Plan of Treatment Not on file documented as of this encounter Visit Diagnoses Not on filedocumented in this encounter Care Teams Adjunct Spanish Instructor Relationship Specialty Start Date End Date Mary Alice Liu MD [address] [place] [address] PCP - General Pediatrics 01/13/20 02/11/24 Anahi Maher NP [address] [place] [address] PCP - General Family Medicine 02/12/24 Tawanda Lopez DO [address] [place] [address] Referring Physician Internal Medicine 02/12/24 Arianna Lucio MD [address] [place] [address] Obstetrics and Gynecology 02/12/24 documented as of this encounter
--- NOTE | 2024-07-23 01:30 | ED_ITS ---
HPI - Female Genitourinary General Chief complaint: Urogenital-Female Stated complaint: uti Time Seen by Provider: 07/23/24 00:57 History of Present Illness HPI Narrative: Patient is a 19-year-old female presents to the ER with concerns for urinary tract infection. She reports she has a history of UTIs in started experiencing urgency and decreased amounts of urine over the past week. Patient reports her last UTI was around gi. Patient endorses a history of high blood pressure and tachycardia. She reports she is currently on her menstrual period. Patient denies any abdominal pain, recent fevers, CVA tenderness, or concern for STDs. Related Data Allergies Allergy/AdvReac Type Severity Reaction Status Date / Time No Known Allergies Allergy Verified 07/22/24 23:53 Review of Systems Review of Systems: All systems reviewed & are unremarkable except as noted in HPI and below PMFSH Past Medical History Medical History ADHD (attention deficit hyperactivity disorder) Nexplanon insertion 07/2018 Nexplanon insertion 08/23/21 Nexplanon removal/reinsertion Nexplanon removal 08/23/21 Nexplanon removal/reinsertion Vaginal discharge Encounter for Nexplanon removal 05/27/2022 Anxiety Tachycardia Hypertension Hypertension Depression Surgical History Surgical History History of tonsillectomy Social History Social History Smoking status: Never smoker Alcohol intake: never Substance use: never Substance use type: former substance user and marijuana Last use: 02/24/2024 Do You Feel Safe in your Home?: Yes Lack of Transportation: No Lack of Food: Never True Current Housing: I Have Housing Concerned About Future Housing: No Difficulty Paying Gas/Electric Bills: No Difficulty Paying for Meds: No Currently Unemployed: No Education: High School Diploma/GED Difficulty w/ Childcare or Family Care: No Living arrangements: other Additional living arrangements comments: grandma Occupation/Education: unemployed Gender identity (if verbalized by the patient): Female Sexual Orientation (if Verbalized by the Patient): Straight or Heterosexual Spiritual care concerns: No Exam Narrative: GENERAL: Well appearing, well-nourished, non-toxic, in no acute distress. HEAD: Normocephalic, atraumatic. NECK: Supple. No adenopathy, no masses. RESPIRATORY: Airway patent, respirations nonlabored. Clear to auscultation bilaterally, no rales, rhonchi, wheezing. CARDIOVASCULAR: Regular rate and rhythm without murmurs, rubs, or gallops. Peripheral pulses 2+ and equal bilaterally. ABDOMINAL: Soft, nontender, nondistended, no hepatosplenomegaly. Normoactive BS. MUSCULOSKELETAL: Moves all extremities. Strength/ROM intact without gross deformities. SKIN: Warm, dry, normal color. No rashes. NEURO: A&O X3. Speech clear. Cranial nerves II-XII grossly intact. Steady gait. No ataxic movements. PSYCHIATRIC: Appropriate mood and affect. Normal interaction. Course Vital Signs Vital signs: Vital Signs Temperature 36.8 C 07/22/24 23:55 Pulse Rate 82 07/22/24 23:55 Respiratory Rate 16 07/22/24 23:55 Blood Pressure 146/86 H 07/22/24 23:55 Pulse Oximetry 100 07/22/24 23:55 Oxygen Delivery Room Air 07/22/24 23:55 Temperature 36.8 C 07/22/24 23:55 Pulse Rate 98 07/23/24 00:58 Respiratory Rate 18 07/23/24 00:58 Blood Pressure 121/99 H 07/23/24 00:58 Pulse Oximetry 100 07/23/24 00:58 Oxygen Delivery Room Air 07/22/24 23:55 MDM - Female Genitourinary MDM Narrative Medical decision making narrative: Patient is a 19-year-old female presents to the ER with concerns for urinary tract infection. She reports she has a history of UTIs in started experiencing urgency and decreased amounts of urine over the past week. Patient reports her last UTI was around . Patient endorses a history of high blood pressure and tachycardia. She reports she is currently on her mens trual period. Patient denies any abdominal pain, recent fevers, CVA tenderness, or concern for STDs. Labs Ordered: UA Imaging Ordered: None necessary Medications Ordered: None necessary Results: Patient's urinalysis did not indicate a UTI. Diagnosis: Cystitis without infection Patient Education/Shared MDM: Results of urinalysis shared with patient. Patient strongly advised to maintain hydration status upon discharge. She reports she has appointment scheduled on Friday with her OBGYN. Patient strongly advised to keep this appointment for follow-up of this ER visit. She will be discharged home with prescription for Pyridium. Strict return precautions provided. Patient verbalized understanding is in agreement with plan. Vital signs stable at time of discharge. All questions answered. Differential Diagnosis Differential diagnosis: Likely urinary tract infection and cystitis Lab Data Attestation: I reviewed the patient's lab results. Labs: Lab Results 07/23/24 07/23/24 Range/Units 01:31 01:45 Urine Color Yellow (Yellow) Urine Appearance Clear (Clear) Urine pH 5.5 (5.0-9.0) Ur Specific [place] 1.011 (1.001-1.035) Urine Protein Negative (Negative) mg/dL Urine Glucose (UA) Negative (Negative) mg/dL Urine Ketones Negative (Negative) mg/dL Ur Blood (Man) Trace (Negative) Urine Nitrate Negative (Negative) Urine Bilirubin Negative (Negative) Urine Urobilinogen 0.2 (<2.0) mg/dL Leukocyte Esterase Rfl Negative (Negative) LACY/UL Urine RBC 0-2 (0-2) /hpf Urine WBC 0-5 (0-3) /hpf Ur Squamous Epith Cells None seen (Few) /hpf Urine Bacteria None seen /hpf Urine Casts 0-2 POC Urine HCG, Qual Negative (Negative) Discharge Plan Discharge Clinical Impression: Non-infective cystitis Patient Disposition: Home, Self-Care Condition: Stable Instructions: Antibiotic Form, Dysuria (ED) Additional Instructions: Please return to the ER with any worsening symptoms. Follow-up with your OBGYN on Friday, as planned and discussed. Take all medications as prescribed. Patient Language: Sammarinese Prescriptions: New phenazopyridine [Pyridium] 100 mg tablet 100 mg PO TID PRN (Reason: pain) Qty: 6 0RF No Action propranolol 20 mg tablet See Rx Instructions .ROUTE .COMPLEX Qty: 180 2RF Dose Instruction: TAKE 1 TABLET BY MOUTH TWICE DAILY Rx Instructions: TAKE 1 TABLET BY MOUTH TWICE DAILY losartan 50 mg tablet See Rx Instructions .ROUTE .COMPLEX Qty: 90 2RF Dose Instruction: TAKE 1 TABLET BY MOUTH DAILY Rx Instructions: TAKE 1 TABLET BY MOUTH DAILY Follow-up/Referrals: Nika,Anahi Fields APRN [Primary Care Provider] - Time of Disposition: 02:17
[2024-07-23 01:42] LABS: Add Urine Microscopic? YES; Appearance Urine Clear (Clear); Bacteria Urine None Seen /hpf; Bilirubin Urine Negative (Negative); Blood Urine Trace (Negative); Color Urine Yellow (Yellow); Glucose Urine UA Negative (Negative); Ketones Urine Negative (Negative); Leukocyte Esterase Ur Negative LEU/UL (Negative); Nitrate Urine Negative (Negative); Non Pathogenic Casts 0-2; Protein Urine Negative (Negative); RBC Urine 0-2 /hpf (0-2); Specific Grav Ur 1.011 (1.001-1.035); Squamous Epithelial Cell Urine None Seen /hpf (Few); Urobilinogen Urine 0.2 mg/dL (<2.0); WBC Urine 0-5 /hpf (0-3); pH Urine 5.5 (5.0-9.0)
[2024-07-23 01:47] LABS: BEDSIDEPREGUCG Negative (Negative)
== END 2024-07-23 02:40 | disposition home or self-care (01) ==
PROVIDERS: Emergency Provider Registered Nurse; PCP Nurse Practitioner Family
DX: N30.90 Cystitis, unspecified without hematuria (principal); I10 Essential (primary) hypertension; Z79.899 Other long term (current) drug therapy
CPT/HCPCS: 81001; 81025; 99283

== ENCOUNTER 2024-10-02 23:25 | Emergency (ER) | payer OTHER, SELFPAY ==
--- NOTE | ~2024-10-02 | XR_ITS ---
CHEST RADIOGRAPH CLINICAL HISTORY: cough, CHEST PAIN . COMPARISON: 03/14/2024 TECHNIQUE: Single portable view of the chest. FINDINGS The cardiomediastinal silhouette is unremarkable. The lungs are clear. Visualized osseous structures and soft tissues are unremarkable. IMPRESSION: No focal infiltrate or effusion. Reviewed, dictated and finalized at location A.
--- OUTSIDE RECORDS SUMMARY | 2024-10-02 23:28 | XMS_ITS | Encounter Summary ---
Author Organization [facility] Address [address] [place] [address] Phone Care Team Providers Care Sammying Machine Operator Name Role Phone Mary Alice Liu MD Primary Care Provider [phone] Anahi Maher NP Primary Care Provider [phone] Tawanda Lopez DO Unavailable [phone] Arianna Lucio MD Unavailable [phone] Reason for Referral * Cardiology (Routine) - Closed Specialty Diagnoses / Procedures Referred By Radha diaz Referred To Contact Diagnoses Elevated blood pressure reading without diagnosis of hypertension Procedures 24 hour Blood Pressure Monitor Nani Bains MD [address] [place] [address] [address] [place] [address] Phone: tel: fax: External Order Referral ID Status Reason Start Date Expiration Date Visits Re quested Visits Authorized [id number] Closed 04/11/2020 05/11/2021 1 1 ICAL APPEALS REVIEWER Encounter Details Date Type Department Care Team (Late st Contact Info) Description 04/11/2020 Orders Only [facility] Pediatric Nephrology [facility] 2nd [place] [address] [place] [id number] Kimi De La Torre RN Elevated blood pressure reading without diagnosis of hypertension (Primary Dx) Social History Tobacco Use Types Packs/Day Years Used Date Smoking Tobacco: Never Smokeless Tobacco: Never Comments Unknown Sex and Gender Information Value Date Recorded Sex Assigned at Not on file 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 Gender Identity Female 02/28/2024 1:35 PM CDT Sexual Orientation Not on file documented as of this encounter Plan of Treatment Pending Results Name Type Priority Associated Diagnoses Date /Time 24 hour Blood Pressure Monitor Cardiac Services Routine Elevated blood pressure reading without diagnosis of hypertension 04/01/2020 7:13 AM CLINICAL APPEALS REVIEWER documented as of this encounter Visit Diagnoses Diagnosis Elevated blood pressure reading without diagnosis of hypertension- Primary documented in this encounter Care Teams Sammying Machine Operator Relationship Specialty Start Date End Date Mary Alice Liu MD [address] [place] [address] PCP - General Pediatrics 01/13/20 02/11/24 Anahi Maher NP [address] [place], [place] [id number] PCP - General Family Medicine 02/12/24 Tawanda Lopez DO [address] [place] [address] Referring Physician Internal Medicine 02/12/24 Arianna Lucio MD [address] [place] [address] Obstetrics and Gynecology 02/12/24 documented as of this encounter
--- OUTSIDE RECORDS SUMMARY | 2024-10-02 23:28 | XMS_ITS | Encounter Summary ---
Author Organization [facility] Address [address] [place] [address] Care Team Providers Care Pot Reliner Name Role Phone Anahi Maher NP Primary Care Provider [phone] Tawanda Lopez DO Unavailable [phone] Arianna Lucio MD Unavailable [phone] Encounter Details Date Type Department Care Team (Latest Contact Info) Description 09/24/2024 Results Follow-Up [facility] at [address] [address] Chhaya Esparza NP [address] [place] [address] [address] [place] [address] Vaginitis panel Vaginal, Urine culture Urine, clean voided, N. gonorrhoeae/C. 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 Gender Identity Female 02/28/2024 1:35 PM CDT Sexual Orientation Not on file documented as of this encounter Plan of Treatment Not on file documented as of this encounter Visit Diagnoses Not on filedocumented in this encounter Care Teams Pot Reliner Relationship Specialty Start Date End Date Anahi Maher NP [address] [place] [address] PCP - General Family Medicine 02/12/24 Tawanda Lopez DO [address] [place], [place] [id number] Referring Physician Internal Medicine 02/12/24 Arianna Lucio MD [address] [place] [address] Obstetrics and Gynecology 02/12/24 documented as of this encounter
--- OUTSIDE RECORDS SUMMARY | 2024-10-02 23:28 | XMS_ITS | Clinical Summary ---
Author Organization [facility] Address [address] [place] [address] Care Team Providers Care Environmental Specialist Name Role Phone Anahi Maher NP Primary Care Provider [phone] Tawanda Lopez DO Unavailable [phone] Arianna Lucio MD Unavailable [phone] Allergies No known active allergies Medications losartan [...] Date UTI symptoms 04/22/2024 Assessment & Plan (08/04/2024 2:10 PM CDT): UA in office neg. Culture ordered given pt's hx. Also adding on STI G/C and Vaginitis panel. 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 gonorrhoeae/C. trachomatis Amplification Vaginal 09/23/2024 3:02 PM CDT - 09/23/2024 11:59 PM CDT Hospital Encounter [address] [address] Vaginal discharge Discharge Disposition: Discharge to home or self care 09/23/2024 3:00 PM CDT Office Visit [facility] at [address] [phone] Chhaya Esparza NP Vaginal discharge (Primary Dx); Dysuria 09/23/2024 Nurse Triage [facility] at [address] [phone] Meg Last RN 08/05/2024 Results Follow-Up [facility] at [address] [phone] Anahi Maher, GOPAL Vaginitis panel Vaginal, Urine culture Urine, clean voided, N. gonorrhoeae/C. trachomatis Amplification Urine 08/04/2024 8:29 PM CDT - 08/04/2024 11:59 PM CDT Hospital Encounter [address] [address] UTI symptoms; Vaginal discharge Discharge Disposition: Discharge to home or self care 08/04/2024 1:30 PM CDT Office Visit [facility] at [address] [phone] Anahi Maher NP UTI symptoms (Primary Dx); Vaginal discharge from Last 3 Months Immunizations Immunization Administration Dates Next Due DTaP [...] on file Legal Sex Female 9:25 AM NUCLEAR REACTOR TECHNICIAN Gender Identity Female 02/28/2024 1:35 PM CDT Sexual Orientation Not on file Obstetrics History Last Filed Vital Signs Vital Sign Reading Time Taken Comments Blood Pressure 134/82 09/23/2024 2:55 PM CDT Pulse 104 09/23/2024 2:55 PM CDT Temperature 36.8 C (98.2 F) 09/23/2024 2:55 PM CDT Respiratory Rate 20 09/23/2024 2:55 PM CDT Oxygen Saturation 98% 09/23/2024 2:55 PM CDT Inhaled Oxygen Concentration - - Weight 125.2 kg (276 lb) 09/23/2024 2:55 PM CDT Height 167.6 cm (5' 6 ) 08/04/2024 1:29 PM CDT Body Mass Index 44.55 08/04/2024 1:29 PM CDT Plan of Treatment Health Maintenance Due Date Last Done Comments HPV Vaccines (1 - 3-dose series) 2019 Meningococcal B Vaccine (1 of 2 - Standard) 2020 Regular Well Visit/Exam 18-64 2022 Covid-19 Vaccine (2023- season) 2024 10/16/2021, 10/27/2020, 10/03/2020 Depression Screening 08/04/2025 08/04/2024, 02/12/2024, 02/12/2024 DTaP/Tdap/Td Vaccine (8 - Td or Tdap) 01/18/2029 01/18/2019, 01/22/2016, 11/20/2009, Additional history exists Hepatitis B Screening Completed 2004 , 2004, 2004 Pneumococcal vaccine <65 Completed 005, 2004, 2004, Additional history exists Varicella Vaccines Completed 11/20/2009, 05/09/2005 Meningococcal Vaccine Aged Out 01/22/2016 No ashkan nana eligible based on patient's age to complete this topic Hepatitis C Screening Completed 02/12/2024 Influenza Vaccine Completed 04/05/2024, , 03/05/2007 Procedures Procedure Name Priority Date/Time Associated Diagnosis Comments POCT HCG, URINE Routine 09/23/2024 3:15 PM CDT Vaginal discharge POCT URINALYSIS DIPSTICK Routine 09/23/2024 3:08 PM CDT Vaginal discharge N. GONORRHOEAE/C. TRACHOMATIS AMPLIFICATION Routine 09/23/2024 3:02 PM CDT Vaginal discharge VAGINITIS PANEL Routine 09/23/2024 3:02 PM CDT Vaginal discharge URINE CULTURE Routine 09/23/2024 3:02 PM CDT Vaginal discharge POCT HCG, URINE Routine 08/04/2024 2:19 PM CDT UTI symptoms Vaginal discharge POCT URINALYSIS DIPSTICK Routine 08/04/2024 1:40 PM CDT UTI symptoms VAGINITIS PANEL Routine 08/04/2024 12:00 PM CDT Vaginal discharge N. GONORRHOEAE/C. TRACHOMATIS AMPLIFICATION Routine 08/04/2024 12:00 PM CDT UTI symptoms URINE CULTURE Routine 08/04/2024 12:00 PM CDT UTI symptoms HEPATITIS C ANTIBODY Routine 02/12/2024 11:22 AM CDT Encounter for hepatitis C screening test for low risk patient from Last 3 Months or Most Recently Relevant to Health Maintenance Results * POCT hCG, urine (09/23/2024 3:15 PM CDT) HCG, ur, POC Negative Negative Lot Number [id number] QC Backgroud Clear Acceptable QC Control Line Acceptable Urine 09/23/2024 3:15 PM CDT Chhaya Esparza NP POINT OF CARE TEST ORDERABLES Final Result * (ABNORMAL) POCT urinalysis dipstick (09/23/2024 3:08 PM CDT) Color, Urine, POC Yellow Clarity, ur, POC Cloudy(A) Clear Glucose, ur, POC Negative Negative Bilirubin, ur, POC Negative Negative Ketones, ur, POC Negative Negative Specific [place], POC 1.020 1.003 - 1.030 Blood, ur, POC Negative Negative pH, ur, POC 7.5 5.0 - 8.0 Protein, ur, POC Negative Negative Urobilinogen, urine, POC 0.2 0.2 - 1.0 mg/dL Nitrite, ur, POC Negative Negative Leukocytes, ur, POC Negative Negative Lot Number [id number] Urine 09/23/2024 3:08 PM CDT Chhaya Esparza NP POINT OF CARE TEST ORDERABLES Final Result * N. gonorrhoeae/C. trachomatis Amplification Vaginal (09/23/2024 3:02 PM CDT) C. trachomatis Not Detected [facility] Comment:Testing performed by : [facility], [address] [place] [address]., [id number] N. gonorrhoeae Not Detected [facility] Comment: Interpretive Data This assay detects Chlamydia trachomatis and Neisseria gonorrhoeae by nucleic acid amplification testing (NAAT). This assay has been cleared by the [place] Food and Drug administration. The performance characteristics of this test have been verified by the [facility] Molecular Infectious Disease laboratory. The performance characteristics of this test have not been evaluated in individuals less than 14 years of age. Current Interpretive Data was last revised on 2023. Testing performed by: [facility], [address] [place] [address]., [id number] Vaginal (None) 09/23/2024 3: 02 PM CDT 09/24/2024 10:49 AM CDT Chhaya Esparza NP LAB MICROBIOLOGY - GENERAL ORD ERABLES Final Result [facility] [address] Department [place] [address] [facility] * Vaginitis panel Vaginal (09/23/2024 3:02 PM CDT) Bacterial Vaginosis Not Detected Not Detected Comment:A negative result do es not preclude a possible infection. Results should be considered in conjunction with clinical presentation to determine the disease status. Tabatha group Not Detected Not Detected [facility] Tabatha glabrata/ krusei Not Detected Not Detected [facility] Trichomonas DNA Not Detected Not Detected [facility] Vaginal 09/23/2024 3:02 PM CDT 09/23/2024 7:36 PM CDT Narrative [facility] - 09/23/2024 9:55 PM CDT The [employer] Xpert Xpress MVP test detects DNA targets from anaerobic bacteria associated with bacterial vaginosis, Tabatha species associated with vulvovaginal candidiasis, and Trichomonas vaginalis by nucleic acid amplification testing (NAAT). Results should be interpreted in conjunction with other clinical data. This test cannot be used to assess therapeutic success or failure because target nucleic acids may persist following antimicrobial therapy. This test has been cleared by the [place] Food and Drug Administration to aid in the diagnosis of vaginal infections in symptomatic women ages 14 and older. The performance characteristics of this test have been verified by the [facility]. Chhaya Esparza NP LAB MICROBIOLOGY - GENERAL ORD ERABLES Final Result Performing Organization Address City/[facility]/ZIP Co de Phone Number [facility] [address] [address] [place] [address] [place] * Urine culture Urine, clean voided (09/23/2024 3:02 PM CDT) Report Final Report: Less than 100,000 colonies/mL (clinically insignificant growth based on current clinical standards) Comment:Testing performed by : [facility], [address] [place]., [address] Organism (CLINICALLY INSIGNIFICANT GROWTH [facility] Urine, clean voided 09/23/2024 3:02 PM CDT 09/23/2024 11:59 PM CDT Narrative [facility] - 09/25/2024 6:44 AM CDT Testing performed by [facility] Microbiology Laboratory ([phone]) Chhaya Esparza NP LAB MICROBIOLOGY - GENERAL ORD ERABLES Final Result [facility] [id number] [address] Department of [place] [place], [place] [id number] * POCT hCG, urine (08/04/2024 2:19 PM CDT) HCG, ur, POC Negative Negative Lot Number [id number] QC Backgroud Clear Acceptable QC Control Line Acceptable Urine 08/04/2024 2:19 PM CDT Anahi Maher CURBING STONECUTTER POINT OF CARE TEST ORDERABLES Fi nal Result * POCT urinalysis dipstick (08/04/2024 1:40 PM CDT) Glucose, ur, POC Negative Negative MG/DL Bilirubin, ur, POC Negative Negative, Small, Moderate, Large Ketones, ur, POC Negative Negative Specific [place], POC 1.010 1.003 - 1.030 Blood, ur, POC Negative Negative pH, ur, POC 7.0 5.0 - 8.0 Protein, ur, POC Negative Negative Urobilinogen, urine, POC 0.2 0.2 - 1.0 mg/dL Nitrite, ur, POC Negative Negative Leukocytes, ur, POC Negative Negative Lot Number [id number] Urine 08/04/2024 1:40 PM CDT us Anahi Maher CURBING STONECUTTER POINT OF CARE TEST ORDERABLES Fi nal Result * N. gonorrhoeae/C. trachomatis Amplification Urine (08/04/2024 12:00 PM CDT) Pathologist [facility] C. trachomatis Not Detected [facility] Comment:Testing performed by : [facility], [address] [place]., [address] N. gonorrhoeae Not Detected [facility] Comment: Interpretive Data This assay detects Chlamydia trachomatis and Neisseria gonorrhoeae by nucleic acid amplification testing (NAAT). This assay has been cleared by the [place] Food and Drug administration. The performance characteristics of this test have been verified by the [facility] Molecular Infectious Disease laboratory. The performance characteristics of this test have not been evaluated in individuals less than 14 years of age. Current Interpretive Data was last revised on 2023. Testing performed by: [facility], [address] [facility], [place]., [address] Urine (None) 08/04/2024 12:0 0 PM CDT 08/05/2024 10:33 AM CDT us Anahi Maher NP LAB MICROBIOLOGY - GENERAL ORDER ASHELY Final Result Performing Organization Address City/[facility]/ZIP Co de Phone Number [facility] [address] [address] [place] [address] [facility]J * (ABNORMAL) Vaginitis panel Vaginal (08/04/2024 12:00 PM CDT) Pathologist [facility] Bacterial Vaginosis Detected(A) Not Detected Comment:The BV organism targ ets of this test can be commensal in women; results should be considered in conjunction with clinical presentation to determine the disease status. Tabatha group Not Detected Not Detected [facility] Tabatha glabrata/ krusei Not Detected Not Detected [facility] Trichomonas DNA Not Detected Not Detected [facility] Vaginal 08/04/2024 12:0 0 PM CDT 08/04/2024 8:31 PM CDT Narrative [facility] - 08/04/2024 9:59 PM CDT The [employer] Xpert Xpress MVP test detects DNA targets from anaerobic bacteria associated with bacterial vaginosis, Tabatha species associated with vulvovaginal candidiasis, and Trichomonas vaginalis by nucleic acid amplification testing (NAAT). Results should be interpreted in conjunction with other clinical data. This test cannot be used to assess therapeutic success or failure because target nucleic acids may persist following antimicrobial therapy. This test has been cleared by the [place] Food and Drug Administration to aid in the diagnosis of vaginal infections in symptomatic women ages 14 and older. The performance characteristics of this test have been verified by the [facility]. us Anahi Maher NP LAB MICROBIOLOGY - GENERAL ORDER ASHELY Final Result [facility] [address] [address] Department [place] [address] [place] * Urine culture Urine, clean voided (08/04/2024 12:00 PM CDT) Report Final Report: Less than 100,000 colonies/mL (clinically insignificant growth based on current clinical standards) Comment:Testing performed by : [facility], [address] [place]., [address] Organism (CLINICALLY INSIGNIFICANT GROWTH [facility] Urine, clean voided 08/04/2024 12:00 PM CDT 08/04/2024 10:12 PM CDT Narrative [facility] - 08/06/2024 2:04 PM CDT Testing performed by [facility] Microbiology Laboratory ([phone]) Anahi Maher NP LAB MICROBIOLOGY - GENERAL ORDER ASHELY Final Result Performing Organization Address [facility] de Phone Number [facility] [address] [address] [employer] [place], [place] [id number] * Hepatitis C antibody Blood (02/12/2024 11:22 [...] ORDER ASHELY Final Result Performing Organization Address [facility] Co de Phone Number [facility] [address] [address] [place] [address] from Last 3 Months or Most Recently Relevant to Health Maintenance Insurance [facility] CHOICE PLUS IDPA [facility] CHOICE PLUS Care Teams Environmental Specialist Relationship Specialty Start Date End Date Anahi Maher NP [address] [place] [address] PCP - General Family Medicine 02/12/24 Tawanda Lopez DO [address] [place] [address] Referring Physician Internal Medicine 02/12/24 Arianna Lucio MD [address] [place] [address] Obstetrics and Gynecology 02/12/24
--- OUTSIDE RECORDS SUMMARY | 2024-10-02 23:28 | XMS_ITS | Referral Summary ---
Author Organization [facility] Address [address] [place] [address] Care Team Providers Care Turkey Egg Gatherer Name Role Phone Anahi Maher JAILKEEPER Primary Care Provider [phone] Tawanda Lopez DO Unavailable Arianna Lucio MD Unavailable [phone] Encounters Date Type Department Care Team Description 09/24/2024 Results Follow-Up [facility] [address] [address] Chhaya Esparza NP Vaginitis panel Vaginal, Urine culture Urine, clean voided, N. gonorrhoeae/C. trachomatis Amplification Vaginal 09/23/2024 3:02 PM CDT - 09/23/2024 11:59 PM CDT Hospital Encounter [address] [address] Vaginal discharge Discharge Disposition: Discharge to home or self care 09/23/2024 3:00 PM CDT Office Visit [facility] [address] [address] Chhaya Esparza NP Vaginal discharge (Primary Dx); Dysuria 09/23/2024 Nurse Triage [facility] [address] [address] Meg Last RN 08/05/2024 Results Follow-Up [facility] [address] [address] Anahi Maher, JAILKEEPER Vaginitis panel Vaginal, Urine culture Urine, clean voided, N. gonorrhoeae/C. trachomatis Amplification Urine 08/04/2024 8:29 PM CDT - 08/04/2024 11:59 PM CDT Hospital Encounter [address] [address] UTI symptoms; Vaginal discharge Discharge Disposition: Discharge to home or self care 08/04/2024 1:30 PM CDT Office Visit [facility] [address] [address] Anahi Maher, JAILKEEPER UTI symptoms (Primary Dx); Vaginal discharge from Last 3 Months Allergies No known [...] caffeine Assessment & Plan (04/26/2024 9:52 AM HOOK PULLER): Urine dip looks okay, but she is [...] HIV and syphilis Recommended trauma-informed counseling Encouraged network cabler(s) to seek counseling for self Repeat HIV [...] on file Legal Sex Female 9:25 AM HOOK PULLER Gender Identity Female 02/28/2024 1:35 PM CDT [...] 08/04/2024 1:29 PM CDT Plan of Treatment Not on file Procedures [...] Negative Ketones, ur, POC Negative Negative Specific [place], POC 1.020 1.003 - 1.030 Blood, ur, POC Negative Negative pH, ur, POC 7.5 5.0 - 8.0 Protein, ur, POC Negative Negative Urobilinogen, urine, POC 0.2 0.2 - 1.0 mg/dL Nitrite, ur, POC Negative Negative Leukocytes, ur, POC Negative Negative Lot Number [id number] Urine 09/23/2024 3:08 PM CDT us Chhaya Esparza NP POINT OF CARE TEST ORDERABLES Final Result * N. gonorrhoeae/C. trachomatis Amplification Vaginal (09/23/2024 3:02 PM CDT) C. trachomatis Not Detected [facility] Comment:Testing performed by : [facility], [address] [place] [address]., [address] N. gonorrhoeae Not Detected [facility] Comment: Interpretive Data This assay detects Chlamydia trachomatis and Neisseria gonorrhoeae by nucleic acid amplification testing (NAAT). This assay has been cleared by the [place] Food and Drug administration. The performance characteristics of this test have been verified by the [facility] Molecular Infectious Disease laboratory. The performance characteristics of this test have not been evaluated in individuals less than 14 years of age. Current Interpretive Data was last revised on 2023. Testing performed by: [facility], [address] [place] [address]., [address] Vaginal (None) 09/23/2024 3: 02 PM CDT 09/24/2024 10:49 AM CDT us Chhaya Esparza NP LAB MICROBIOLOGY - GENERAL ORD ERABLES Final Result [facility] [address] Department [place] [address] [facility] * Vaginitis panel Vaginal (09/23/2024 3:02 PM CDT) Bacterial Vaginosis Not Detected Not Detected Comment:A negative result do es not preclude a possible infection. Results should be considered in conjunction with clinical presentation to determine the disease status. Tabatha group Not Detected Not Detected [facility] Tabatha glabrata/ krusei Not Detected Not Detected [facility] Trichomonas DNA Not Detected Not Detected [facility] Vaginal 09/23/2024 3:02 PM CDT 09/23/2024 7:36 PM CDT Narrative [facility] - 09/23/2024 9:55 PM CDT The [employer] Xpert Xpress MVP test detects DNA targets [...] this test have been verified by the [facility]. Chhaya Esparza NP LAB MICROBIOLOGY - GENERAL ORD ERABLES Final Result [facility] [address] [address] Department [place] [address] [facility] * Urine culture Urine, clean voided (09/23/2024 3:02 PM CDT) Pathologist [facility] Report Final Report: Less than 100,000 colonies/mL (clinically insignificant growth based on current clinical standards) Comment:Testing performed by : [facility], [address] [facility], [place]., [address] Organism (CLINICALLY INSIGNIFICANT GROWTH [facility] Urine, clean voided 09/23/2024 3:02 PM CDT 09/23/2024 11:59 PM CDT Narrative [facility] - 09/25/2024 6:44 AM CDT Testing performed by [facility] Microbiology Laboratory ([phone]) Chhaya Esparza NP LAB MICROBIOLOGY - GENERAL ORD ERABLES Final Result [facility] [address] [address] Department [place] [address] * POCT hCG, urine (08/04/2024 2:19 PM CDT) HCG, ur, POC Negative Negative Lot Number [id number] QC Backgroud Clear Acceptable QC Control Line Acceptable Urine 08/04/2024 2:19 PM CDT Anahi Maher NP POINT OF CARE TEST ORDERABLES Fi nal Result * POCT urinalysis dipstick (08/04/2024 1:40 PM CDT) Glucose, ur, POC Negative Negative MG/DL Bilirubin, ur, POC Negative Negative, Small, Moderate, Large Ketones, ur, POC Negative Negative Specific [place], POC 1.010 1.003 - 1.030 Blood, ur, POC Negative Negative pH, ur, POC 7.0 5.0 - 8.0 Protein, ur, POC Negative Negative Urobilinogen, urine, POC 0.2 0.2 - 1.0 mg/dL Nitrite, ur, POC Negative Negative Leukocytes, ur, POC Negative Negative Lot Number [id number] Urine 08/04/2024 1:40 PM CDT Anahi Maher NP POINT OF CARE TEST ORDERABLES Fi nal Result * N. gonorrhoeae/C. trachomatis Amplification Urine (08/04/2024 12:00 PM CDT) C. trachomatis Not Detected [facility] Comment:Testing performed by : [facility], [address] [place]., [address] N. gonorrhoeae Not Detected [facility] Comment: Interpretive Data This assay detects Chlamydia trachomatis and Neisseria gonorrhoeae by nucleic acid amplification testing (NAAT). This assay has been cleared by the [place] Food and Drug administration. The performance characteristics of this test have been verified by the [facility] Molecular Infectious Disease laboratory. The performance characteristics of this test have not been evaluated in individuals less than 14 years of age. Current Interpretive Data was last revised on 2023. Testing performed by: [facility], [address] [place]., [address] Urine (None) 08/04/2024 12:0 0 PM CDT 08/05/2024 10:33 AM CDT us Anahi Maher NP LAB MICROBIOLOGY - GENERAL ORDER ASHELY Final Result [facility] [address] [address] Department [place] [address] [facility] * (ABNORMAL) Vaginitis panel Vaginal (08/04/2024 12:00 PM CDT) Pathologist [facility] Bacterial Vaginosis Detected(A) Not Detected Comment:The BV organism targ ets of this test can be commensal in women; results should be considered in conjunction with clinical presentation to determine the disease status. Tabatha group Not Detected Not Detected [facility] Tabatha glabrata/ krusei Not Detected Not Detected [facility] Trichomonas DNA Not Detected Not Detected [facility] Vaginal 08/04/2024 12:0 0 PM CDT 08/04/2024 8:31 PM CDT Narrative [facility] - 08/04/2024 9:59 PM CDT The Cepheid Xpert Xpress MVP test detects DNA targets [...] this test have been verified by the [facility]. us Anahi Maher NP LAB MICROBIOLOGY - GENERAL ORDER ASHELY Final Result Performing Organization Address [facility] Co de Phone Number HECTOR [address] [address] Department [place] [address] * Urine culture Urine, clean voided (08/04/2024 12:00 PM CDT) Report Final Report: Less than 100,000 colonies/mL (clinically insignificant growth based on current clinical standards) Comment:Testing performed by : [facility], [address] [place]., [address] Organism (CLINICALLY INSIGNIFICANT GROWTH [facility] Urine, clean voided 08/04/2024 12:00 PM CDT 08/04/2024 10:12 PM CDT Narrative [facility] - 08/06/2024 2:04 PM CDT Testing performed by [facility] Microbiology Laboratory ([phone]) us Aanhi Maher NP LAB MICROBIOLOGY - GENERAL ORDER ASHELY Final Result Performing Organization Address [facility] de Phone Number [facility]OR [address] [address] Department [place] [address] * Hepatitis C antibody Blood (02/12/2024 11:22 [...] ORDER ASHELY Final Result Performing Organization Address City/[facility] Co de Phone Number LION[facility]ERRICK [facility] [address] [address] Department [place] [address] from Last 3 Months or Most Recently Relevant to Health Maintenance Insurance [facility] CHOICE PLUS IDPA [facility] CHOICE PLUS FORMERLY [facility] CHOICE PLUS Care Teams Turkey Egg Gatherer Relationship Specialty Start Date End Date Anahi Maher NP [address] [facility] [address] [place] [address] PCP - General Family Medicine 02/12/24 Tawanda Lopze DO [address] [place] [address] Referring Physician Internal Medicine 02/12/24 Arianna Lucio MD [address] [place] [address] Obstetrics and Gynecology 02/12/24
--- OUTSIDE RECORDS SUMMARY | 2024-10-02 23:28 | XMS_ITS | Encounter Summary ---
Author Organization [facility] [place] Address [address] [place] [address] Phone Care Team Providers Care Buyer Planner Name Role Phone Mary Alice Liu MD Primary Care Provider Anahi Maher NP Primary Care Provider [phone] Tawanda Lopez DO Unavailable [phone] Arianna Lucio MD Unavailable [phone] Encounter Details Date Type Department Care Team (Late st Contact Info) Description 10/16/2021 Telephone [facility] Pediatric Endocrinology [facility] 2nd [place] [address] [place] [address] Lenka Marti [facility] Social History Tobacco Use Types Packs/Day Years Used Date Smoking Tobacco: Never Smokeless Tobacco: Never Comments Unknown Sex and Gender Information Value Date Recorded Sex Assigned at Not on file Legal Sex Female 9:25 AM 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 TUTOR Gender Identity Female 02/28/2024 1:35 PM CDT Sexual Orientation Not on file documented as of this encounter Plan of Treatment Not on file documented as of this encounter Visit Diagnoses Not on filedocumented in this encounter Care Teams Buyer Planner Relationship Specialty Start Date End Date Mary Alice Liu MD [address] [place] [address] PCP - General Pediatrics 01/13/20 02/11/24 Anahi Maher NP [address] [place] [address] PCP - General Family Medicine 02/12/24 Tawanda Lopez DO [address] [place] [address] Referring Physician Internal Medicine 02/12/24 Arianna Lucio MD [address] [place] [address] Obstetrics and Gynecology 02/12/24 documented as of this encounter
[2024-10-02 23:31] VITALS: BP 133/93; PULSE 113; RESP 18; TEMP 37.1; O2SAT 99
[2024-10-02 23:32] VITALS: O2SAT 99
--- NOTE | 2024-10-03 00:07 | ED_ITS ---
HPI - URI/Sore Throat General Chief Complaint: Upper Respiratory Infection Stated Complaint: cough x 4 days, throat feels swollen Time Seen by Provider: 10/02/24 23:41 Source: patient and other Mode of arrival: ambulatory Limitations: no limitations History of Present Illness HPI Narrative: Patient presents report of a cough days duration. Starting today she felt like her throat was sore and swollen. She has had a stuffy nose congested no fever but with chills past 4 days. No sick contacts. No edema. Not on any hormones including no control. No recent travel. She has been feeling drained. She does not smoke cigarettes but she does smoke approximately/less than joint marijuana per day. No underlying respiratory conditions. She took ibuprofen 600 mg at home for headache that she developed after she had been coughing. She had been having chest pain when she coughed now it is more constant. She was short of breath when she wakes up and states she has wheezes. She notes that she has a gene carrier of cystic fibrosis but does not have this diagnosis; no official genetic testing has been performed by her, this is based on her mother having this diagnosis. Related Data Allergies Allergy/AdvReac Type Severity Reaction Status Date / Time No Known Allergies Allergy Verified 10/02/24 23:26 [facility] Past Medical History Medical History ADHD (attention deficit hyperactivity disorder) Nexplanon insertion 07/2018 Nexplanon insertion 08/23/21 Nexplanon removal/reinsertion Nexplanon removal 08/23/21 Nexplanon removal/reinsertion Vaginal discharge Encounter for Nexplanon removal 05/27/2022 Anxiety Tachycardia Hypertension Depression Surgical History Surgical History History of tonsillectomy Family History Family History Mother Cystic fibrosis Sibling Cystic fibrosis carrier Social History Social History (Updated 10/03/24 @ 01:58 by Jerri Cordero MD) Smoking status: Never smoker Alcohol intake: never Substance use: current Substance use type: marijuana Other substance usage details: </= 1 joint daily Do You Feel Safe in your Home?: Yes Lack of Transportation: No Lack of Food: Never True Current Housing: I Have Housing Concerned About Future Housing: No Difficulty Paying Gas/Electric Bills: No Difficulty Paying for Meds: No Currently Unemployed: No Education: High School Diploma/GED Difficulty w/ Childcare or Family Care: No Living arrangements: other Additional living arrangements comments: grandma 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 HEAD: Normocephalic, atraumatic. EYES: Non injected, non icteric ENT: No epistaxis. Nasal congestion. Gross auditory acuity intact. Posterior oropharynx mildly hyperemic. Moist mucous membranes. Uvula midline. NECK: Supple. No meningismus. CHEST: Speaking in full sentences. No respiratory distress. Lungs clear to auscultation throughout without appreciable wheezes or crackles or areas of focal consolidation. HEART: Regular rate and rhythm. . ABDOMEN: Obese but Soft, nondistended. EXTREMITIES: Normal range of motion. No bilateral lower extremity edema. SKIN: Warm, dry, no rash. NEURO: No focal deficits. Alert and oriented. Answering questions. Following commands. Normal speech without aphasia or dysarthria. PSYCH: Normal mood and affect. Course Vital Signs Vital signs: Vital Signs Temperature 98.7 F 10/02/24 23:31 Pulse Rate 113 H 10/02/24 23:31 Respiratory Rate 18 10/02/24 23:31 Blood Pressure 133/93 H 10/02/24 23:31 Pulse Oximetry 99 10/02/24 23:31 Oxygen Delivery Room Air 10/02/24 23:31 Temperature 97.7 F 10/03/24 02:29 Pulse Rate 101 H 10/03/24 02:29 Respiratory Rate 16 10/03/24 02:29 Blood Pressure 146/97 H 10/03/24 02:29 Pulse Oximetry 100 10/03/24 02:29 Oxygen Delivery Room Air 10/02/24 23:32 MDM - URI/Sore Throat MDM Narrative Medical decision making narrative: Patient presents with cough, congestion, chills and throat pain. In the emergency department she is afebrile with vital signs notable for mild hypertension as well as mild tachycardia. Strep negative. Patient is tachycardic and she does report some blood in her sputum coughing. Although this likely represents bronchitis and does not sound like sonia massive hemoptysis, will obtain D-dimer. Viral panel negative. CBC is largely unremarkable except from mild abnormalities on differential; notably, no leukocytosis. Tachycardia slightly improved, at 101 beats per minute on the EKG and repeat VS. Patient is given medications for symptom management including a 1 dose of dexamethasone this has been shown to improve the time to symptom resolution pharyngitis. She is reassessed at bedside discussed workup and reassuring findings. Discussed the importance of symptom management with combination of medications and these are prescribed also the importance of rest and maintaining hydration. Discussed additional [id number] medications that can be used although their equivocal data. Stable for discharge. Differential Diagnosis Differential diagnosis: Likely upper respiratory infection, sinusitis, viral infection, bronchitis, influenza, pharyngitis and other (Pulmonary embolism, acute viral syndrome) Lab Data Attestation: I reviewed the patient's lab results. 10/03/24 00:51 10/03/24 00:51 Labs: Lab Results 10/03/24 10/03/24 Range/Units 00:05 00:51 WBC 7.8 (4.5-10.0) K/mm3 RBC 4.84 (4.2-5.4) M/mm3 Hgb 14.0 (12.0-15.0) g/dL Hct 42.6 (37.0-47.0) % MCV 88.0 (80-100) fl MCH 28.9 (26-34) pg MCHC 32.9 (32-36) g/dl RDW 12.8 (11.5-14.5) % Plt Count 307 (150-375) k/mm3 MPV 9.0 (7.4-10.4) fl Immature Gran % (Auto) 0.6 H (0-0.5) % Neut % (Auto) 68.5 (45.5-73.1) % Lymph % (Auto) 19.6 (18.3-44.2) % [place] % (Auto) 10.4 H (2.6-8.5) % Eos % (Auto) 0.5 (0-4.4) % Baso % (Auto) 0.4 (0.2-1.2) % Lymph # (Auto) 1.52 (0.9-3.2) K/mm3 [place] # (Auto) 0.8 H (0.1-0.6) K/mm3 Eos # (Auto) 0.0 (0-0.3) K/mm3 Baso # (Auto) 0.0 (0.0-0.1) K/mm3 Abs Immat Gran (auto) 0.05 H (0.00-0.031) K/mm3 Absolute Neuts (auto) 5.3 (1.3-6.7) K/mm3 Absolute Nucleated RBC 0.000 (0.0-0.012) K/mm3 Nucleated RBC % 0.0 (0.0-0.2) % D-Dimer 0.39 (<0.48) ug/mL Sodium 139 (137-145) mmol/L Potassium 3.9 (3.4-5.0) mmol/L Chloride 105 (98-107) mmol/L Carbon Dioxide 26 (22-30) mmol/L Anion Gap 8 (4-12) mmol/L BUN 9 (7-17) mg/dL Creatinine 0.74 (0.7-1.0) mg/dL Estim Creat Clear Calc 139 ml/min Estimated GFR > 60 (59 - ) Glucose 85 (65-110) mg/dL Calcium 9.4 (8.4-10.2) mg/dL Influenza A (RT-PCR) Negative (Negative) Influenza B (RT-PCR) Negative (Negative) RSV (RT-PCR) Negative (Negative) SARS-CoV-2 RNA (RT-PCR) Negative (Negative) Group A Strep (PCR) Not detected (Negative) Imaging Data Attestation: I personally reviewed and interpreted this imaging study as follows: My impression: No acute intrathoracic process on my independent interpretation chest x-ray. No lobar pneumonia. ECG Data EKG #1: Attestation: I personally reviewed and interpreted this ECG as follows: ECG completion date: 10/03/24 ECG completion time: 01:43 Prior ECG tracings: available for review (Patient had these T-waves inverted in 3, AVF, and V3 as well as at that time V4 1 EKG from 04/03/2024.) Interpretation: Sinus tachycardia at a rate of 101 beats per minute. Good R-wave progression across the precordial leads. T-wave inversion in V3 though I suspect this to be due to lead placement. There is also T-wave inversion in 3 and AVF but not in contiguous inferior lead 2. IL interval 147. QRS 82. QT/QTC 322/380. Discharge Plan Discharge Clinical Impression: Bronchitis, Acute viral syndrome, Pharyngitis Patient Disposition: Home Condition: Stable Instructions: Antibiotic Form, Pharyngitis (ED), Acute Bronchitis (ED), Viral Syndrome (ED) Additional Instructions: As we discussed, no evidence of pneumonia or strep throat and we call the symptoms bronchitis and pharyngitis respectively. It tends to be viral but you tested negative for COVID, RSV, influenza a, influenza B. resting and maintain your hydration. You can take the medications prescribed to help with his symptoms. Acetaminophen/Tylenol (maximum 4000 mg per day) is safe to take with NSAIDs (ibuprofen/Motrin) for pain relief. Follow-up with primary care physician. Return to the emergency department with any new, worsening, unmanaged symptoms . Jjvt-ocr-gavizrt medications can be used but also recommend salt gargles, honey, tea. Patient Language: Palauan Prescriptions: New ibuprofen 600 mg tablet 600 mg PO TID PRN (Reason: pain) Qty: 30 0RF ondansetron 4 mg tablet,disintegrating 4 mg PO Q8H PRN (Reason: nausea and vomiting) Qty: 7 0RF acetaminophen 500 mg capsule 1,000 mg PO Q6H PRN (Reason: pain) Qty: 30 0RF benzonatate 100 mg capsule 100 mg PO BID PRN (Reason: cough) Qty: 20 0RF Cepacol Sore Throat-Cough 5-7.5 mg lozenge 1 candy PO Q4H PRN (Reason: cough) Qty: 16 0RF No Action propranolol 20 mg tablet See Rx Instructions .ROUTE .COMPLEX Qty: 180 2RF Dose Instruction: TAKE 1 TABLET BY MOUTH TWICE DAILY Rx Instructions: TAKE 1 TABLET BY MOUTH TWICE DAILY losartan 50 mg tablet See Rx Instructions .ROUTE .COMPLEX Qty: 90 2RF Dose Instruction: TAKE 1 TABLET BY MOUTH DAILY Rx Instructions: TAKE 1 TABLET BY MOUTH DAILY phenazopyridine [Pyridium] 100 mg tablet 100 mg PO TID PRN (Reason: pain) Qty: 6 0RF Follow-up/Referrals: Nika,Anahi Fields, CHEMICAL MILLING PROCESSOR [Primary Care Provider] - Stand Alone Forms: Work/School Release IP Time of Disposition: 01:59
[2024-10-03 00:45] LABS: Strep Group A RT-PCR NOT DETECTED (Negative)
--- NOTE | 2024-10-03 00:52 | ECG_ITS ---
Test Date: 2024-10-03 01:43:38 Measurements Intervals [place] Rate: 101 P: 39 WV: 147 QRS: 40 QRSD: 82 T: -9 QT: 322 QTc: 417 Interpretive Statements SINUS TACHYCARDIA T-WAVE ABNORMALITIES, CONSIDER INFERIOR ISCHEMIA ABNORMAL RHYTHM ECG Compared to ECG 04/03/2024 20:26:26 Possible ischemia no longer present T-wave abnormality still present Electronically Signed On 10-03-2024 10:11:18 CDT by Damion Villafana M.D.
[2024-10-03 00:57] LABS: Influenza A QL RT-PCR Negative (Negative); Influenza B QL RT-PCR Negative (Negative); RSV RNA, RT-PCR Negative (Negative); SARS-CoV-2 RNA PCR Negative (Negative)
[2024-10-03 01:00] LABS: Basophils Percent Auto 0.4 % (0.2-1.2); Eosinophils Percent Auto 0.5 % (0-4.4); Hematocrit 42.6 % (37.0-47.0); Immature Granulocyte Absolute 0.05 K/mm3 (0.00-0.031); Immature Granulocyte Percent A 0.6 % (0-0.5); Lymphocytes Absolute Auto 1.52 K/mm3 (0.9-3.2); Lymphocytes Percent Auto 19.6 % (18.3-44.2); Mean Corpuscular HGB Conc 32.9 g/dl (32-36); Mean Corpuscular Hemoglobin 28.9 pg (26-34); Monocytes Absolute Auto 0.8 K/mm3 (0.1-0.6); Monocytes Percent Auto 10.4 % (2.6-8.5); Neutrophils Absolute Auto 5.3 K/mm3 (1.3-6.7); Neutrophils Percent Auto 68.5 % (45.5-73.1); Platelet Count Result 307 k/mm3 (150-375); Red Blood Count 4.84 M/mm3 (4.2-5.4); Red Cell Distribution Width 12.8 % (11.5-14.5); White Blood Count 7.8 K/mm3 (4.5-10.0)
[2024-10-03 01:11] LABS: Anion Gap 8 mmol/L (4-12); Blood Urea Nitrogen 9 mg/dL (7-17); Calcium 9.4 mg/dL (8.4-10.2); Carbon Dioxide 26 mmol/L (22-30); Chloride 105 mmol/L (98-107); Estimated CRCL calculation 139 ml/min; Estimated Glomerular Filt Rate > 60; Glucose 85 mg/dL (65-110); Potassium 3.9 mmol/L (3.4-5.0); Sodium 139 mmol/L (137-145)
[2024-10-03 01:23] LABS: D Dimer 0.39 ug/mL (<0.48)
[2024-10-03 01:47] VITALS: BP 146/97; PULSE 101; TEMP 36.5; O2SAT 100
[2024-10-03] MEDS: BENZONATATE 100 MG CAPSULE PO (02:20)
[2024-10-03] MEDS: dexAMETHasone 2 MG TABLET 10 MG PO (02:20)
[2024-10-03] MEDS: BENZOCAINE/MENTHOL (*BKC) 18 EA LOZENGE 1 LOZENGE PO (02:22)
[2024-10-03 02:29] VITALS: BP 146/97; PULSE 101; RESP 16; TEMP 36.5; O2SAT 100
== END 2024-10-03 02:31 | disposition home or self-care (01) ==
PROVIDERS: Emergency Provider Student in an Organized Health Care Education/Training Program; PCP Nurse Practitioner Family
DX: J40 Bronchitis, not specified as acute or chronic (principal); J02.9 Acute pharyngitis, unspecified; B34.9 Viral infection, unspecified; F90.9 Attention-deficit hyperactivity disorder, unspecified type; I10 Essential (primary) hypertension; F41.8 Other specified anxiety disorders; Z20.822 Contact with and (suspected) exposure to COVID-19
CPT/HCPCS: 36415; 71045; 80048; 85025; 85380; 87637; 87651; 93005; 99283; A9270; J8540

== ENCOUNTER 2024-11-24 11:59 | Emergency (ER) | payer OTHER, MEDICAID, SELFPAY ==
--- NOTE | ~2024-11-24 | XR_ITS ---
EXAMINATION: XR chest 2V 11/24/2024 12:46 INDICATION: Syncope PROCEDURE: 2 view chest COMPARISON: Comparison to multiple prior studies sequentially, with oldest reviewed study dated 07/2023. FINDINGS: The lungs are clear. The cardiomediastinal silhouette is within normal limits. There are no pleural effusions. There is no pneumothorax suspected. IMPRESSION: 1: NO ACUTE CARDIOPULMONARY DISEASE. Reviewed, dictated and finalized at location B.
--- NOTE | 2024-11-24 12:04 | ECG_ITS ---
Test Date: 2024-11-24 12:06:59 Measurements Intervals [place] Rate: 96 P: 48 PA: 146 QRS: 43 QRSD: 90 T: 1 QT: 358 QTc: 452 Interpretive Statements SINUS RHYTHM Electronically Signed On 11-24-2024 23:26:03 CDT by Boni Michaud D.O
[2024-11-24 12:09] VITALS: BP 138/91; PULSE 85; RESP 19; TEMP 36.6; O2SAT 100
[2024-11-24 12:31] LABS: Hematocrit 39.5 % (37.0-47.0); Hemoglobin 12.9 g/dL (12.0-15.0); Immature Granulocyte Percent A 0.7 % (0-0.5); Lymphocytes Absolute Auto 1.48 K/mm3 (0.9-3.2); Mean Corpuscular HGB Conc 32.7 g/dl (32-36); Mean Corpuscular Hemoglobin 28.7 pg (26-34); Mean Corpuscular Volume 88.0 fl (80-100); Nucleated Red Blood Cells Absolute Auto 0.000 K/mm3 (0.0-0.012); Nucleated Red Blood Cells Perc 0.0 % (0.0-0.2); Platelet Count Result 320 k/mm3 (150-375); Red Blood Count 4.49 M/mm3 (4.2-5.4); White Blood Count 7.1 K/mm3 (4.5-10.0)
[2024-11-24 12:51] LABS: Alanine Aminotransferase 33 U/L (6-35); Albumin Level 4.0 g/dL (3.5-5.1); Alkaline Phosphatase 97 U/L (38-126); Anion Gap 9 mmol/L (4-12); Aspartate Amino Transferase 38 U/L (14-36); Bilirubin,Total 0.8 mg/dL (0.2-1.3); Blood Urea Nitrogen 8 mg/dL (7-17); Calcium 9.2 mg/dL (8.4-10.2); Carbon Dioxide 24 mmol/L (22-30); Chloride 107 mmol/L (98-107); Estimated CRCL calculation 130 ml/min; Estimated Glomerular Filt Rate > 60; Glucose 89 mg/dL (65-110); Potassium 3.5 mmol/L (3.4-5.0); Sodium 140 mmol/L (137-145); Total Protein 7.4 g/dL (6.3-8.2)
[2024-11-24] MEDS: AMOXICILLIN 500 MG CAPSULE PO (13:21)
[2024-11-24 13:34] LABS: Troponin I < 0.012 ng/mL (0.000-0.034)
--- NOTE | 2024-11-24 13:41 | ED.GENADULT ---
HPI - General Adult General Chief complaint: Unspecified Stated complaint: GREGG BEEN PASSING OUT Time Seen by Provider: 11/24/24 12:43 History of Present Illness HPI narrative: For the last few weeks patient have been having episodes of syncope; most of the more witnessed, once was while she was in a car with her significant other and she started feeling bad, felt like her with ears were ringing, her vision was going mathis, and she felt like she was passing out. Related Data Allergies Allergy/AdvReac Type Severity Reaction Status Date / Time No Known Allergies Allergy Verified 10/02/24 23:26 [facility] Past Medical History Medical History ADHD (attention deficit hyperactivity disorder) Nexplanon insertion 07/2018 Nexplanon insertion 08/23/21 Nexplanon removal/reinsertion Nexplanon removal 08/23/21 Nexplanon removal/reinsertion Vaginal discharge Encounter for Nexplanon removal 05/27/2022 Anxiety Tachycardia Hypertension Depression Surgical History Surgical History History of tonsillectomy Family History Family History Mother Cystic fibrosis Sibling Cystic fibrosis carrier Social History Social History (Updated 10/03/24 @ 01:58 by Jerri Cordero MD) Smoking status: Never smoker Alcohol intake: never Substance use: current Substance use type: marijuana Other substance usage details: </= 1 joint daily Do You Feel Safe in your Home?: Yes Lack of Transportation: No Lack of Food: Never True Current Housing: I Have Housing Concerned About Future Housing: No Difficulty Paying Gas/Electric Bills: No Difficulty Paying for Meds: No Currently Unemployed: No Education: High School Diploma/GED Difficulty w/ Childcare or Family Care: No Living arrangements: other Additional living arrangements comments: grandma 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 EYES: EOMI, conjunctiva normal ENT: Hearing grossly intact LUNGS: Nonlabored breathing. Clear to auscultation bilaterally HEART: [Regular rate and rhythm] ABD: [Soft], [nontender to palpation] EXT: Normal range of motion; +Tinel's, Phalen's SKIN: [No rashes or lesions.] NEURO: [Alert and oriented x 3. No gross focal sensory or strength deficits.] PSYCH: Normal affect Course Vital Signs Vital signs: Vital Signs Temperature 98 F 11/24/24 12:09 Pulse Rate 85 11/24/24 12:09 Respiratory Rate 19 11/24/24 12:09 Blood Pressure 138/91 H 11/24/24 12:09 Pulse Oximetry 100 11/24/24 12:09 Oxygen Delivery Room Air 11/24/24 12:09 Temperature 98 F 11/24/24 12:09 Pulse Rate 85 11/24/24 12:09 Respiratory Rate 19 11/24/24 12:09 Blood Pressure 138/91 H 11/24/24 12:09 Pulse Oximetry 100 11/24/24 12:09 Oxygen Delivery Room Air 11/24/24 12:09 Medical Decision Making [facility] Narrative Medical decision making narrative: Patient presents here after she had several episodes of syncope over last few weeks, they do sound like vasovagal syncope with a prodrome, she has had issues with tachycardia in the past but is no longer on medications for this, broad workup initiated here with cardiac workup is unremarkable thankfully including normal troponin, D-dimer, chest x-ray on my independent interpretation without any obvious consolidation or pneumothorax. EKG on my independent interpretation shows sinus rhythm rate 96, BMI 46, QRS 90, QTC 452, no ST elevations depressions or signs of acute ischemia or arrhythmia. 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 Return precautions provided. Patient and family member at bedside agreeable to this plan. Vital Signs Vital Signs: Vital Signs Temperature 98 F 11/24/24 12:09 Pulse Rate 85 11/24/24 12:09 Respiratory Rate 19 11/24/24 12:09 Blood Pressure 138/91 H 11/24/24 12:09 Pulse Oximetry 100 11/24/24 12:09 Oxygen Delivery Room Air 11/24/24 12:09 Temperature 98 F 11/24/24 12:09 Pulse Rate 85 11/24/24 12:09 Respiratory Rate 19 11/24/24 12:09 Blood Pressure 138/91 H 11/24/24 12:09 Pulse Oximetry 100 11/24/24 12:09 Oxygen Delivery Room Air 11/24/24 12:09 Lab Data 11/24/24 12:17 11/24/24 12:17 Labs: Lab Results 11/24/24 11/24/24 Range/Units 12:16 12:17 WBC 7.1 (4.5-10.0) K/mm3 RBC 4.49 (4.2-5.4) M/mm3 Hgb 12.9 (12.0-15.0) g/dL Hct 39.5 (37.0-47.0) % MCV 88.0 (80-100) fl MCH 28.7 (26-34) pg MCHC 32.7 (32-36) g/dl RDW 12.5 (11.5-14.5) % Plt Count 320 (150-375) k/mm3 MPV 8.9 (7.4-10.4) fl Immature Gran % (Auto) 0.7 H (0-0.5) % Neut % (Auto) 65.0 (45.5-73.1) % Lymph % (Auto) 21.0 (18.3-44.2) % Tyrrell % (Auto) 11.9 H (2.6-8.5) % Eos % (Auto) 1.0 (0-4.4) % Baso % (Auto) 0.4 (0.2-1.2) % Lymph # (Auto) 1.48 (0.9-3.2) K/mm3 Tyrrell # (Auto) 0.8 H (0.1-0.6) K/mm3 Eos # (Auto) 0.1 (0-0.3) K/mm3 Baso # (Auto) 0.0 (0.0-0.1) K/mm3 Abs Immat Gran (auto) 0.05 H (0.00-0.031) K/mm3 Absolute Neuts (auto) 4.6 (1.3-6.7) K/mm3 Absolute Nucleated RBC 0.000 (0.0-0.012) K/mm3 Nucleated RBC % 0.0 (0.0-0.2) % D-Dimer < 0.27 (<0.48) ug/mL Sodium 140 (137-145) mmol/L Potassium 3.5 (3.4-5.0) mmol/L Chloride 107 (98-107) mmol/L Carbon Dioxide 24 (22-30) mmol/L Anion Gap 9 (4-12) mmol/L BUN 8 (7-17) mg/dL Creatinine 0.86 (0.7-1.0) mg/dL Estim Creat Clear Calc 130 ml/min Estimated GFR > 60 (59 - ) Glucose 89 (65-110) mg/dL Calcium 9.2 (8.4-10.2) mg/dL Total Bilirubin 0.8 (0.2-1.3) mg/dL AST 38 H (14-36) U/L ALT 33 (6-35) U/L Alkaline Phosphatase 97 (38-126) U/L Troponin I < 0.012 (0.000-0.034) ng/mL Total Protein 7.4 (6.3-8.2) g/dL Albumin 4.0 (3.5-5.1) g/dL Discharge Plan Discharge Clinical Impression: Syncope, Infection of tooth, Carpal tunnel syndrome Patient Disposition: Home Condition: Stable Instructions: Syncope (ED), Toothache (ED) Additional Instructions: Your labs and chest xray today all look normal. Please follow-up with the portable grinding machine operator, you can also follow-up with a dentist for your tooth, and with orthopedics for your carpal tunnel. You can always return to the emergency room if your symptoms get worse. Try taking the medications as prescribed for your tooth infection and for your carpal tunnel. Patient Language: American Prescriptions: New amoxicillin 500 mg capsule 500 mg PO Q8H 7 Days Qty: 21 0RF prednisone 20 mg tablet 40 mg PO DAILY 4 Days Qty: 8 0RF No Action propranolol 20 mg tablet See Rx Instructions .ROUTE .COMPLEX Qty: 180 2RF Dose Instruction: TAKE 1 TABLET BY MOUTH TWICE DAILY Rx Instructions: TAKE 1 TABLET BY MOUTH TWICE DAILY losartan 50 mg tablet See Rx Instructions .ROUTE .COMPLEX Qty: 90 2RF Dose Instruction: TAKE 1 TABLET BY MOUTH DAILY Rx Instructions: TAKE 1 TABLET BY MOUTH DAILY phenazopyridine [Pyridium] 100 mg tablet 100 mg PO TID PRN (Reason: pain) Qty: 6 0RF ibuprofen 600 mg tablet 600 mg PO TID PRN (Reason: pain) Qty: 30 0RF ondansetron 4 mg tablet,disintegrating 4 mg PO Q8H PRN (Reason: nausea and vomiting) Qty: 7 0RF acetaminophen 500 mg capsule 1,000 mg PO Q6H PRN (Reason: pain) Qty: 30 0RF benzonatate 100 mg capsule 100 mg PO BID PRN (Reason: cough) Qty: 20 0RF Cepacol Sore Throat-Cough 5-7.5 mg lozenge 1 candy PO Q4H PRN (Reason: cough) Qty: 16 0RF Other Ambulatory Orders: CA holter monitor 3-7 day (Routine) Timeframe: 1 Day Location: Determined by Patient Ordered By: Vanesa Stapleton Follow-up/Referrals: Christy Gore MD [Physician] - 2 Days Maher,Anahi Fields APRN [Primary Care Provider] - Tawanda Lopez DO [Physician] - 2 Days
[2024-11-24 13:49] VITALS: BP 132/91; PULSE 95; RESP 20; O2SAT 99
--- NOTE | 2024-12-07 15:24 | WPDHOLTEREM ---
Holter/Event Monitor Holter/Event Monitor Date of procedure: 11/24/24 Holter/Event Procedure: 3-7 Day Holter Monitor Indications: Syncope Conclusion: 1. 2 days and 8 hour holter monitor on 11/24/24. 2. Underlying rhythm is sinus rhythm. HR range 53-183 bpm; average HR 97 bpm. HR at 183 bpm was on 11/26/24 at 12:43 am. 3. There are rare premature supraventricular complexes and rare supraventricular couplets. No supraventricular tachycardia. 4. There are rare premature ventricular complexes. No ventricular tachycardia. 5. No significant pauses greater than 3 seconds. 6. Patient reports 2 episodes of symptoms of chest pain which demonstrate sinus tachycardia, HR range 111-112 bpm.
== END 2024-11-24 13:59 | disposition home or self-care (01) ==
PROVIDERS: Emergency Medicine; Emergency Provider Emergency Medicine; PCP Nurse Practitioner Family
DX: R55 Syncope and collapse (principal); K04.7 Periapical abscess without sinus; G56.03 Carpal tunnel syndrome, bilateral upper limbs; F90.9 Attention-deficit hyperactivity disorder, unspecified type; F41.9 Anxiety disorder, unspecified; I10 Essential (primary) hypertension; F32.A Depression, unspecified
CPT/HCPCS: 36415; 71046; 80053; 84484; 85025; 85380; 93005; 93242; 99284; A9270; J7512

== ENCOUNTER 2025-01-22 16:06 | Emergency (ER) | payer OTHER, MEDICAID, SELFPAY ==
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
--- OUTSIDE RECORDS SUMMARY | 2025-01-22 16:09 | XMS_ITS | Encounter Summary ---
Author Organization [facility] Address [address] [place] [address] Phone Care Team Providers Care Tubing Mill Operator Name Role Phone Mary Alice Liu MD Primary Care Provider Anahi Maher NP Primary Care Provider [phone] Tawanda Lopez DO Unavailable Arianna Lucio MD Unavailable [phone] Encounter Details Date Type Department Care Team (Late st Contact Info) Description 10/16/2021 [facility]phone [facility] 2[address] [place] [address] [place] [id number] Lenka Marti formerly [facility] Social History Tobacco Use Types Packs/Day Years Used Date Smoking Tobacco: Never Smokeless Tobacco: Never Comments Unknown Sex and Gender Information Value Date Recorded Sex Assigned at Not on file Legal Sex Female 9:25 AM 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 RECOVERY WORKER Gender Identity Female 02/28/2024 1:35 PM CDT Sexual Orientation Not on file documented as of this encounter Plan of Treatment Not on file documented as of this encounter Visit Diagnoses Not on filedocumented in this encounter Care Teams Tubing Mill Operator Relationship Specialty Start Date End Date Mary Alice Liu MD [address] [place] [address] PCP - General Pediatrics 01/13/20 02/11/24 Anahi Maher NP [address] [place] [address] PCP - General Family Medicine 02/12/24 Tawanda Lopez DO [address] [place] [address] Referring Physician Internal Medicine 02/12/24 Arianna Lucio MD [address] [place] [address] Obstetrics and Gynecology 02/12/24 documented as of this encounter
--- OUTSIDE RECORDS SUMMARY | 2025-01-22 16:09 | XMS_ITS | Clinical Summary ---
Author Organization [facility] Main 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 Repeat [...] Encounters Date Type Department Care Team Description 11/26/2024 Orders Only [facility] Medical [facility] Primary Care at [address] [address] ProviderAnne-Marie MD 11/24/2024 9:15 AM CDT Office Visit [facility] Convenient Care at [address] [address] Chhaya [place], GOPAL Syncope, unspecified syncope type (Primary Dx); Weakness from Last 3 Months Immunizations Immunization Administration [...] on file Legal Sex Female 9:25 AM HEAD UP OPERATOR HELPER Gender Identity Female 02/28/2024 1:35 PM CDT Sexual Orientation Not on file Obstetrics History Last Filed Vital Signs Vital Sign Reading Time Taken Comments Blood Pressure 121/91 11/24/2024 9:09 AM CDT Pulse 104 11/24/2024 9:09 AM CDT Temperature 36.1 C (97 F) 11/24/2024 9:09 AM CDT Respiratory Rate 18 11/24/2024 9:09 AM CDT Oxygen Saturation 98% 11/24/2024 9:09 AM CDT Inhaled Oxygen Concentration - - Weight 125.8 kg (277 lb 6.4 oz) 11/24/2024 9:09 AM CDT Height 167.6 cm (5' 5.98) 11/24/2024 9:09 AM CDT Body Mass Index 44.8 11/24/2024 9:09 AM CDT Plan of Treatment Health Maintenance Due Date Last Done Comments HPV Vaccines (1 - 3-dose series) 2019 Meningococcal B Vaccine (1 of 2 - Standard) 2020 Regular Well Visit/Exam 18-64 2022 Covid-19 Vaccine ( - season) 2025 10/16/2021, 10/27/2020, 10/03/2020 Influenza Vaccine (#1) 2025 , 01/18/2019, 03/05/2007 Depression Screening 08/04/2025 08/04/2024, 02/12/2024, 02/12/2024 DTaP/Tdap/Td [...] this topic Hepatitis C Screening Completed 02/12/2024 Procedures Procedure Name Priority Date/Time Associated Diagnosis Comments XR CHEST 2 VIEWS W APICAL LORDOTIC 3 VIEWS Schedule Routine, Read Routine (OP Routine) 11/24/2024 1:47 PM CDT HEPATITIS C ANTIBODY Routine 02/12/2024 11:22 AM CDT Encounter for hepatitis C screening test for low risk patient from Last 3 Months or Most Recently Relevant to Health Maintenance Results * XR Chest 2 Views W Apical Lordotic 3 Views (11/24/2024 1:47 PM CDT) Anatomical Region Laterality Modality Body, Chest N/A [...] - GENERAL ORDER ASHELY Final Result [facility] [id number] [place] [address] from Last 3 Months or Most Recently Relevant to Health Maintenance Insurance [facility] H[facility]/PPO Address: [address] [address] [place] [address] [facility] H[facility]/PPO Address: [address] [address] [place] [address] Care Teams Aeronautical Drafter Relationship Specialty Start Date End Date Anahi Maher NP [address] [place] [address] PCP - General Family Medicine 02/12/24 Tawanda Lopez DO [address] [place], [place] [id number] Referring Physician Internal Medicine 02/12/24 Arianna Lucio MD [address] [place] [address] Obstetrics and Gynecology 02/12/24
--- OUTSIDE RECORDS SUMMARY | 2025-01-22 16:10 | XMS_ITS | Encounter Summary ---
Author Organization [facility] Address [address] [place] [address] Phone Care Team Providers Care Sheet Rock Sander Name Role Phone Mary Alice Liu MD Primary Care Provider [phone] Anahi Maher NP Primary Care Provider [phone] Tawanda Lopez DO Unavailable [phone] Arianna Lucio MD Unavailable [phone] Reason for Referral * Cardiology (Routine) - Closed Specialty Diagnoses / Procedures Referred By Contac t Referred To Contact Diagnoses Elevated blood pressure reading without diagnosis of hypertension Procedures 24 hour Blood Pressure Monitor Nani Bains MD [address] [place] [address] [address] [place] [address] Phone: tel: fax: External Order Referral ID Status Reason Start Date Expiration Date Visits Re quested Visits Authorized [id number] Closed 04/11/2020 05/11/2021 1 1 ENSING LEAD Encounter Details Date Type Department Care Team (Late st Contact Info) Description 04/11/2020 Orders Only [facility] Pediatric Nephrology [facility] 2nd [place] [address] [place] [id number] Kimi De La Torre RN Elevated blood pressure reading without diagnosis of hypertension (Primary Dx) Social History Tobacco Use Types Packs/Day Years Used Date Smoking Tobacco: Never Smokeless Tobacco: Never Comments Unknown Sex and Gender Information Value Date Recorded Sex Assigned at Not on file Legal Sex Female 9:25 AM DISPENSING LEAD Gender Identity Female 02/28/2024 1:35 PM CDT Sexual Orientation Not on file documented as of this encounter Plan of Treatment Pending Results Name Type Priority Associated Diagnoses Date /Time 24 hour Blood Pressure Monitor Cardiac Services Routine Elevated blood pressure reading without diagnosis of hypertension 04/01/2020 7:13 AM DISPENSING LEAD documented as of this encounter Visit Diagnoses Diagnosis Elevated blood pressure reading without diagnosis of hypertension- Primary documented in this encounter Care Teams Sheet Rock Sander Relationship Specialty Start Date End Date Mary Alice Liu MD [address] [place] [address] PCP - General Pediatrics 01/13/20 02/11/24 Anahi Maher NP [address] [place] [address] PCP - General Family Medicine 02/12/24 Tawanda Lopez DO [address] [place] [address] Referring Physician Internal Medicine 02/12/24 Arianna Lucio MD [address] [place] [address] Obstetrics and Gynecology 02/12/24 documented as of this encounter
--- NOTE | 2025-01-22 16:11 | ED_ITS ---
HPI - Female Genitourinary General Chief complaint: Urogenital-Female Stated complaint: UTI Time Seen by Provider: 01/22/25 16:25 Source: patient Mode of arrival: ambulatory Limitations: no limitations History of Present Illness HPI Narrative: Arianna is a 19-year-old female patient presenting to the clinic today with complaints of possible UTI x1 day. Reports that she has had some urinary discomfort, cloudy urine, and some itching around the vaginal area. Denies any vaginal discharge or odor. She is sexually active with 1 partner. Is concerned that her partner is not monogamous relationship. States she took a test on January 01 and was positive but then had a menstrual period on January 03. Is requesting bedside test and STI testing in the clinic today. Related Data Allergies Allergy/AdvReac Type Severity Reaction Status Date / Time No Known Allergies Allergy Verified 01/22/25 16:22 Review of Systems Review of Systems: Pertinent positives per HPI. Patient denies any fever, chills, rash, headache, visual changes, dizziness, cough, runny nose, sore throat, shortness of breath, chest pain, palpitations, nausea, vomiting, diarrhea, constipation, abdominal pain. [facility] Past Medical History Medical History ADHD (attention deficit hyperactivity disorder) Nexplanon insertion 07/2018 Nexplanon insertion 08/23/21 Nexplanon removal/reinsertion Nexplanon removal 08/23/21 Nexplanon removal/reinsertion Vaginal discharge Encounter for Nexplanon removal 05/27/2022 Anxiety Tachycardia Hypertension Depression Surgical History Surgical History History of tonsillectomy Family History Family History Mother Cystic fibrosis Sibling Cystic fibrosis carrier Social History Social History Smoking status: Never smoker Alcohol intake: never Substance use: current Substance use type: marijuana Other substance usage details: </= 1 joint daily Do You Feel Safe in your Home?: Yes Lack of Transportation: No Lack of Food: Never True Current Housing: I Have Housing Concerned About Future Housing: No Difficulty Paying Gas/Electric Bills: No Difficulty Paying for Meds: No Currently Unemployed: No Education: High School Diploma/GED Difficulty w/ Childcare or Family Care: No Living arrangements: other Additional living arrangements comments: grandma 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 There is no relevant family history pertinent to the patient complaint. Exam Narrative: General: Well-developed, obese, in no apparent distress. Head: Normocephalic, atraumatic. Cardio: Regular rate and rhythm, s1 and s2 normal, no murmur appreciated. Resp: Clear to auscultation bilaterally, no rhonchi, rales, wheezing or rubs. Abdomen: Soft, pliable, bowel sounds present in all quadrants, non-tender to palpation, no organomegly, no CVAT tenderness. : Deferred Course Course Emergency Course: Portions of this record may have been created with voice recognition software. Level of Care: Express Care Visit Vital Signs Vital signs: Vital Signs Temperature 36.4 C 01/22/25 16:18 Pulse Rate 88 01/22/25 16:18 Respiratory Rate 18 01/22/25 16:18 Blood Pressure 98/69 L 01/22/25 16:18 Pulse Oximetry 99 01/22/25 16:18 Oxygen Delivery Room Air 01/22/25 16:18 Temperature 36.4 C 01/22/25 16:18 Pulse Rate 88 01/22/25 16:18 Respiratory Rate 18 01/22/25 16:18 Blood Pressure 98/69 L 01/22/25 16:18 Pulse Oximetry 99 01/22/25 16:18 Oxygen Delivery Room Air 01/22/25 16:18 Vital signs reviewed MDM - Female Genitourinary MDM Narrative Medical decision making narrative: At the time of visit patient is resting comfortably on the exam table. Patient appears to be nontoxic. Complaints of possible UTI x1 day. Reports that she has had some urinary discomfort, cloudy urine, and some itching around the vaginal area. Denies any vaginal discharge or odor. She is sexually active with 1 partner. Is concerned that her partner is not monogamous relationship. States she took a test on January 01 and was positive but then had a menstrual period on January 03. Is requesting bedside test and STI testing in the clinic today. Patient states that she has had a kidney infection before without UTI symptoms. Urine dip, bedside , chlamydia, gonorrhea, and Trichomonas testing was ordered. Labs: Urinalysis positive for 1+ leukocytes and trace of blood, we will send urine for culture. Bedside test was negative. Chlamydia, gonorrhea, and Trichomonas testing was sent to lab. Plan: I suspect patient has UTI. Prescription for Bactrim DS 1 tab twice daily x5 days ordered. Will await STI testing results prior to treatment. Supportive measures were discussed with the patient and they voiced understanding discharge instructions and agrees to treatment plan. Return precautions reviewed Differential Diagnosis Differential diagnosis: Likely urinary tract infection, bacterial vaginosis, trichomoniasis, cervicitis, vaginitis and cystitis Lab Data Labs: Lab Results 01/22/25 Range/Units 16:28 POC Urine Color Yellow POC Urine Clarity Cloudy POC Urine pH 7.5 POC Ur Specif Elk 1.020 POC Urine Protein Negative (Negative) POC Ur Glucose (UA) Negative (Negative) POC Urine Ketones Negative (Negative) POC Urine Blood Trace (Negative) POC Urine Nitrite Negative (Negative) POC Urine Bilirubin Negative (Negative) POC Urine Urobilinogen 0.2 POC U Leukocyte Esteras 1+ (Negative) POC Urine HCG, Qual Negative (Negative) Discharge Plan Discharge Clinical Impression: Concern about STD in female without diagnosis UTI (urinary tract infection) Qualifiers: Urinary tract infection type: acute cystitis Hematuria presence: with hematuria Qualified Code(s): N30.01 - Acute cystitis with hematuria Patient Disposition: Home Condition: Stable Instructions: Antibiotic Form, Sexually Transmitted Diseases (ED), Urinary Tract Infection in Women (ED) Additional Instructions: Urinalysis positive for leukocytes and trace of blood. Bedside test was negative. Increase fluids and stay well hydrated Wipe front to back. May use wet wipes. Avoid tub baths If sexually active- pee before and after intercourse. Wear cotton panties Avoid tight clothing up against the genitals We have tested you for STIs in the clinic today. Avoid any sexual activity- includes oral, anal, or vaginal intercourse until you get results back and have completed any additional recommended treatment regimens. We will contact you if testing is positive and make sure your treatment is appropriate for the type of STI. If symptoms worsen after treatment recommend reevaluation with your PCP or go to the emergency room Follow up with your PCP in 1 week if symptoms persist. Patient Language: Georgian Prescriptions: New sulfamethoxazole-trimethoprim [Bactrim DS] 800-160 mg tablet 1 tablet PO Q12H 5 Days Qty: 10 0RF No Action propranolol 20 mg tablet 20 mg PO Q12H Qty: 60 5RF Follow-up/Referrals: Nika,Anahi Fields, HEARING AID SPECIALIST [Primary Care Provider, Unknown] Time of Disposition: 16:34 Quality NIHSS Nursing Documentation ED NIHSS nursing documentation: reviewed/agree
[2025-01-22 16:18] VITALS: BP 98/69; PULSE 88; RESP 18; TEMP 36.4; O2SAT 99
[2025-01-22 16:31] LABS: BEDSIDEPREGUCG Negative (Negative); EDUAAPPEAR Cloudy; EDUABILI Negative (Negative); EDUABLOOD Trace (Negative); EDUACOLOR1 Yellow; EDUAGLUCOSE Negative (Negative); EDUAKETONE Negative (Negative); EDUALEUKO 1+ (Negative); EDUANITRATE Negative (Negative); EDUAPH 7.5; EDUAPROTEIN Negative (Negative); EDUASPGRAVITY 1.020; EDUAUROBILI 0.2
[2025-01-22 20:01] LABS: Trichomonas Vag PCR NOT DETECTED (NOT DETECTE)
== END 2025-01-22 16:50 | disposition home or self-care (01) ==
PROVIDERS: Emergency Provider Nurse Practitioner Family; PCP Nurse Practitioner Family
DX: N30.01 Acute cystitis with hematuria (principal); Z11.3 Encounter for screening for infections with a predominantly sexual mode of transmission; I10 Essential (primary) hypertension
CPT/HCPCS: 81003; 81025; 87086; 87186; 87491; 87591; 87661; 99213; G0463

== ENCOUNTER 2025-01-26 18:20 | Emergency (ER) | payer OTHER, MEDICAID, SELFPAY ==
--- NOTE | ~2025-01-26 | US_ITS ---
EXAMINATION: US pelvic complete, 01/26/2025 23:00 CDT HISTORY: L ovarian cyst ct, L lower back pain,r/o torsion Comparison: None Technique: Wynn-scale and color Doppler images were obtained. Findings: Uterus: Uterus anteverted 8.1 x 3.6 x 4.5 cm. . Endometrium 7 mm. Right Ovary:Right ovary 2.4 x 2.4 x 2.7 cm, no adnexal mass, normal flow. Left Ovary: Left ovary 4.6 x 2 x 2.5 cm, the left ovary appears replaced by a complex appearing cyst, normal flow. Free Fluid: None Impression: Probable functional left ovarian cyst. Follow-up suggested in 6 weeks to assess resolution Reviewed, dictated and finalized at location A. Impression: Probable functional left ovarian cyst. Follow-up suggested in 6 weeks to assess resolution
--- NOTE | ~2025-01-26 | CT_ITS ---
CT ABDOMEN AND PELVIS WITHOUT CONTRAST Clinical History: marianna flank pain, uti Comparison: CT abdomen pelvis 04/03/2024 Technique: Unenhanced axial images lung bases to symphysis pubis Coronal, sagittal reformats CT images acquired with automatic exposure control for dose reduction DLP: 734 mGy-cm Findings: Without intravenous contrast, sensitivity for detecting visceral parenchymal abnormalities decreased. Lung bases: Clear. Visualized heart and pericardium: Unremarkable. Liver: Enlarged. Gallbladder: Unremarkable. Spleen: Unremarkable. Pancreas: Unremarkable. Adrenal glands: Unremarkable. Kidneys: Right kidney- No hydronephrosis. No renal stones. Left kidney- No hydronephrosis. No renal stones. Distal esophagus/stomach: Unremarkable. Small bowel loops: Normal caliber and wall thickness. Colon: Normal caliber and wall thickness. Normal RLQ appendix. Nodes: Small mesenteric nodes. Peritoneum: No ascites. No free intraperitoneal air. Urinary bladder: Unremarkable. Uterus: Unremarkable. Adnexa: Unchanged, left side more prominent Bones: No acute bony abnormality. Soft tissues: Unremarkable. Unopacified abdominal aorta: No aneurysmal dilatation. IMPRESSION: 1. No renal stones, hydronephrosis, or other acute findings. 2. Left adnexa remains somewhat prominent. Recommend transvaginal sonography. Reviewed, dictated and finalized at location R.
[2025-01-26 18:22] VITALS: BP 153/95; PULSE 117; RESP 18; TEMP 36.6; O2SAT 100
--- OUTSIDE RECORDS SUMMARY | 2025-01-26 18:22 | XMS_ITS | Encounter Summary ---
Author Organization [facility] Address [address] [place] [address] Phone Care Team Providers Care Checker Bakery Products Name Role Phone Mary Alice Liu MD Primary Care Provider Anahi Maher NP Primary Care Provider [phone] Tawanda Lopez DO Unavailable [phone] Arianna Lucio MD Unavailable [phone] Encounter Details Date Type Department Care Team (Late st Contact Info) Description 10/16/2021 Telephone [facility] Pediatric Endocrinology [facility] 2nd [place] [address] [place] [id number] Lenka Marti [facility] Social History Tobacco Use Types Packs/Day Years Used Date Smoking Tobacco: Never Smokeless Tobacco: Never Comments Unknown Sex and Gender Information Value Date Recorded Sex Assigned at Not on file Legal Sex Female 9:25 AM SCIENTIFIC RESEARCH ASSOCIATE Gender Identity Female 02/28/2024 1:35 PM CDT Sexual Orientation Not on file documented as of this encounter Plan of Treatment Not on file documented as of this encounter Visit Diagnoses Not on filedocumented in this encounter Care Teams Checker Bakery Products Relationship Specialty Start Date End Date Mary Alice Liu MD [address] [place] [address] PCP - General Pediatrics 01/13/20 02/11/24 Anahi Maher NP [address] [place] [address] PCP - General Family Medicine 02/12/24 Tawanda Lopez DO [address] [place] [address] Referring Physician Internal Medicine 02/12/24 Arianna Lucio MD [address] [place] [address] Obstetrics and Gynecology 02/12/24 documented as of this encounter
--- OUTSIDE RECORDS SUMMARY | 2025-01-26 18:23 | XMS_ITS | Clinical Summary ---
Author Organization [facility] Address [address] [facility] [place] [address] Care Team Providers Care Biostatistics Director Name Role Phone Mary Alice Liu MD Primary Care Provider [phone] Source Comments [facility],non-owned Affiliates and Associated Physician Practices is amultiple site organization consisting of ambulatory clinics and hospital sitesin [place], [place], [place] and [place]. This disclosure is being madepursuant to the Care Everywhere program and may not contain all information available regarding this patient. Last updated 18.[facility] Allergies No known active allergies Medications * [...] Kay is at risk for emotional/behavioral sequelae. Kya's non-offending caretakers/family deserve counseling to help them support and nurture this child. 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 Repeat [...] on file Legal Sex Female 5:45 AM JAVA DEVELOPER CONSULTANT Gender Identity Not on file Sexual Orientation Not on file Last Filed Vital Signs Vital Sign Reading Time Taken Comments Blood Pressure 114/84 07/31/2018 3:14 PM CDT Pulse 60 04/15/2018 12:30 PM JAVA DEVELOPER CONSULTANT Temperature 36.9 C (98.4 F) 04/15/2018 12:30 PM JAVA DEVELOPER CONSULTANT Respiratory Rate 16 04/15/2018 12:30 PM JAVA DEVELOPER CONSULTANT Oxygen Saturation 98% 04/15/2018 12:30 PM JAVA DEVELOPER CONSULTANT Inhaled Oxygen Concentration - - Weight 105.2 [...] Reactive Non Reactive 03/09/2018 1:44 PM CDT [facility] Blood BLOOD SPECIMEN / Unknown Lab Venipuncture / Unknown 03/09/2018 12:30 PM CDT 03/09/2018 12:50 PM CDT Narrative [facility] - 03/09/2018 1:44 PM CDT No Laboratory evidence of HIV infection. us Eunice Sierra LINE MOVER-RAIL ASSEMBLER LAB - CHEMISTRY ORDERA BLES Final Result [facility] [place] [address] * HEPATITIS C ANTIBODY (03/09/2018 12:30 PM CDT) Pathologist [facility] HCV Antibody Screen Non Reactive Non Reactive 03/10/2018 8:36 AM CDT [facility] HCV S/C Ratio 0.20 0.00 - 0.79 03/10/2018 8:36 AM CDT [facility] Comment: Quhyge-va-vtjwrc ratio (S/CO) <0.80: Non Reactive Blood BLOOD SPECIMEN / Unknown Lab Venipuncture / Unknown 03/09/2018 12:30 PM CDT 03/09/2018 12:50 PM CDT Narrative [facility] - 03/10/2018 8:36 AM CDT Non Reactive - Antibodies to Hepatitis C virus (HCV) were not detected, result does not exclude early acute HCV infection. Non Reactive - Antibodies to Hepatitis C virus (HCV) were not detected, result does not exclude early acute HCV infection. Eunice Sierra APRN-[facility] LAB - CHEMISTRY ORDERA BLES Final Result Performing Organization Address City/State/[facility] de Phone Number [facility] [place] [address] * CHLAMYDIA + GC AMPLIFIED PROBE PAMELA (11/13/2017 11:40 AM CDT) [facility] Chlamydia Amplified Probe Negative Negative 11/14/2017 9:33 AM CDT [facility] GC Amplified Probe Negative Negative 11/14/2017 9:33 AM CDT [facility] Microbiology URINE / Unknown Collection / Unknown 11/13/2017 11:40 AM CDT 11/13/2017 11:54 AM CDT Narrative [facility] - 11/14/2017 9:33 AM CDT This test was developed and its performance characteristics determined by the [facility], [facility]. Female urine specimens tested by the [facility] have not been cleared or approved by the U.S. Food and Drug Administration (FDA). The laboratory is regulated under the Clinical Laboratory Improvement Amendments (CLIA) as qualified to perform high-complexity testing. This test is used for clinical purposes. It should not be regarded as investigational or for research. Results based on detection/no detection of ribosomal RNA by amplified method. Eunice Tsangeaston LINE MOVER-RAIL ASSEMBLER LAB - MICROBIOLOGY ORD ERABLES Final Result [facility] [address] [place] [address], [facility] [phone] from Last 3 Months or Most Recently Relevant to Health Maintenance Insurance [facility] CARE [facility] Care Teams Biostatistics Director Relationship Specialty Start Date End Date Mary Alice Liu MD [address] [facility] [place] [address] PCP - General Pediatrics 01/04/13
--- OUTSIDE RECORDS SUMMARY | 2025-01-26 18:23 | XMS_ITS | Clinical Summary ---
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 Repeat HIV [...] Department Care Team Description 11/26/2024 Orders Only [facility] Primary Care at [address] [address] ProviderAnne-Marie MD 11/24/2024 9:15 AM CDT Office Visit [facility] Convenient Care at [address] [address] Chhaya [place]arza, GOPAL Syncope, unspecified [...] on file Legal Sex Female 9:25 AM CONCESSION ATTENDANT Gender Identity Female 02/28/2024 1:35 PM CDT [...] - GENERAL ORDER ASHELY Final Result [facility] [id number] [place] [address] from Last 3 Months or Most Recently Relevant to Health Maintenance Insurance [facility] [employer] [facility] Care Teams Milled Lumber Grader Relationship Specialty Start Date End Date Anahi Maher NP [address] [place] [address] PCP - General Family Medicine 02/12/24 Tawanda Lopez DO [address] [place], [place] [id number] Referring Physician Internal Medicine 02/12/24 Arianna Lucio MD [address] [place] [address] Obstetrics and Gynecology 02/12/24
[2025-01-26 19:45] VITALS: BP 143/92; PULSE 93; RESP 18; O2SAT 100
[2025-01-26 19:53] LABS: BEDSIDEPREGUCG Negative (Negative)
[2025-01-26 20:00] LABS: Add Urine Microscopic? YES; Appearance Urine Clear (Clear); Glucose Urine UA Negative (Negative); Leukocyte Esterase Ur Trace LEU/UL (Negative); Nitrate Urine Negative (Negative); Non Pathogenic Casts 0-2; Specific Grav Ur 1.008 (1.001-1.035)
[2025-01-26 21:00] VITALS: BP 135/97; PULSE 77; RESP 16; O2SAT 100
[2025-01-26] MEDS: FLUCONAZOLE 150 MG TABLET PO (21:00)
--- NOTE | 2025-01-26 21:38 | ED.FEMALEGU ---
HPI - Female Genitourinary General Chief complaint: Urogenital-Female Stated complaint: UTI sx, on abx Time Seen by Provider: 01/26/25 19:30 Source: patient Mode of arrival: ambulatory Limitations: no limitations History of Present Illness HPI Narrative: Patient is a 19-year-old female who presents the ED with report of urinary complaints. Patient reports she was seen at an urgent care on Friday and diagnosed with a urinary tract infection. Started on Bactrim. Culture was sent. Was tested negative for STDs at that time. Patient was notified today that her culture resulted positive for E coli. She reports she has 1 day left of the antibiotics, but denies improvement of symptoms. Reports vaginal itching, vaginal irritation, white flaking discharge, urinary frequency, bilateral flank pain. Is concerned she may have a kidney infection. Denies nausea, vomiting, fevers, hematuria. Related Data Allergies Allergy/AdvReac Type Severity Reaction Status Date / Time No Known Allergies Allergy Verified 01/26/25 19:45 Review of Systems Review of Systems: All systems reviewed & are unremarkable except as noted in HPI. All systems reviewed & are unremarkable except as noted in HPI and below PMFSH Past Medical History Medical History ADHD (attention deficit hyperactivity disorder) Nexplanon insertion 07/2018 Nexplanon insertion 08/23/21 Nexplanon removal/reinsertion Nexplanon removal 08/23/21 Nexplanon removal/reinsertion Vaginal discharge Encounter for Nexplanon removal 05/27/2022 Anxiety Tachycardia Hypertension Depression Surgical History Surgical History History of tonsillectomy Family History Family History Mother Cystic fibrosis Sibling Cystic fibrosis carrier Social History Social History Smoking status: Never smoker Alcohol intake: never Substance use: current Substance use type: marijuana Other substance usage details: </= 1 joint daily Do You Feel Safe in your Home?: Yes Lack of Transportation: No Lack of Food: Never True Current Housing: I Have Housing Concerned About Future Housing: No Difficulty Paying Gas/Electric Bills: No Difficulty Paying for Meds: No Currently Unemployed: No Education: High School Diploma/GED Difficulty w/ Childcare or Family Care: No Living arrangements: other Additional living arrangements comments: grandma 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 HEAD: Normocephalic, atraumatic. RESPIRATORY: Airway patent, respirations nonlabored. Clear to auscultation bilaterally, no rales, rhonchi, wheezing. CARDIOVASCULAR: Regular rate and rhythm without murmurs, rubs, or gallops. ABDOMINAL: Soft, nontender, nondistended. Normoactive BS. Bilateral mild CVA tenderness MUSCULOSKELETAL: Moves all extremities. No gross deformities. SKIN: Warm, dry, normal color. NEURO: A&O X3. Speech clear. PSYCHIATRIC: Appropriate mood and affect. Normal interaction. Course Vital Signs Vital signs: Vital Signs Temperature 97.8 F 01/26/25 18:22 Pulse Rate 117 H 01/26/25 18:22 Respiratory Rate 18 01/26/25 18:22 Blood Pressure 153/95 H 01/26/25 18:22 Pulse Oximetry 100 01/26/25 18:22 Oxygen Delivery Room Air 01/26/25 18:22 Temperature 97.8 F 01/26/25 18:22 Pulse Rate 86 01/26/25 23:40 Respiratory Rate 17 01/26/25 23:40 Blood Pressure 161/96 H 01/26/25 23:40 Pulse Oximetry 100 01/26/25 23:40 Oxygen Delivery Room Air 01/26/25 18:22 MDM - Female Genitourinary MDM Narrative Medical decision making narrative: Recent UTI, started on Bactrim. Feel symptoms are ongoing, also reporting bilateral flank pain. UA today without evidence of ongoing infection. Culture was positive for E coli, sensitive to Bactrim. Treated appropriately. Urine is negative today. CT of abdomen/pelvis was obtained to rule out any kidney stone or kidney infection. No evidence of ureterolithiasis, pyelonephritis, hydronephrosis. CT showed left-sided adnexal cystic lesion. Recommended ultrasound for further eval. Discussed this with patient. She does report the flank pain that she has been experiencing has been slightly worse on the left side. Denies significant lower abdominal discomfort. No significant focal LLQ tenderness on exam. Discussed obtaining ultrasound. Patient would like to proceed with this. She denies previous hx of ovarian cysts. US with evidence of cyst, no suspicion finding for torsion. Associate found normal blood flow. Very low suspicion for torsion at this time. Patient otherwise very stable, does not have any ongoing significant pain. Discussed lab and imaging findings. Advised patient to finish last day of antibiotics for UTI. Discussed my suspicion for possible BV, yeast infection. Patient given dose of Diflucan in the ED. Will treat prophylactically for BV with Flagyl. Patient was just recently tested negative for STDs. She denies further concerns for STDs at this time. Will also prescribe Pyridium for additional symptom relief. Patient is in agreement with this plan. Will refer to OBGYN for further evaluation and future evaluation of ovarian cyst. Patient otherwise safe for discharge home. Given strict return precautions. Discharged in stable condition. Medical Records Attestation: I reviewed the patient's medical records. Lab Data Attestation: I reviewed the patient's lab results. Labs: Lab Results 01/26/25 01/26/25 Range/Units 19:41 19:51 Urine Color Yellow (Yellow) Urine Appearance Clear (Clear) Urine pH 5.5 (5.0-9.0) Ur Specific [place] 1.008 (1.001-1.035) Urine Protein Negative (Negative) mg/dL Urine Glucose (UA) Negative (Negative) mg/dL Urine Ketones Negative (Negative) mg/dL Ur Blood (Man) Negative (Negative) Urine Nitrate Negative (Negative) Urine Bilirubin Negative (Negative) Urine Urobilinogen 0.2 (<2.0) mg/dL Leukocyte Esterase Rfl Trace H (Negative) LACY/UL Urine RBC 0-2 (0-2) /hpf Urine WBC 0-5 (0-3) /hpf Ur Squamous Epith Cells Occasional (Few) /hpf Urine Bacteria None seen /hpf Urine Casts 0-2 POC Urine HCG, Qual Negative (Negative) Imaging Data Attestation: I personally reviewed and interpreted this imaging study as follows: Radiologist's impression: STAT RAD CT abd/pelvis: Impression: No nephrolithiasis or obstructive uropathy. No hydronephrosis. Left adnexal cystic lesion measures 3.3 x 3.1 cm. Nonemergent pelvic ultrasound recommended STAT RAD US pelvis: Impression: Transabdominal scanning only. The uterus is of normal size at 8.1-3.6 x 4.5 cm. Endometrial thickness is within normal limits at 6-7 mm. Right ovary is of normal size and appearance of 3.4 x 2.4 x 2.7 cm. There is normal blood flow. Left ovary measures 4.7 x 2.0 x 3.5 cm. Left ovary is not optimally seen, however majority of it is hypoechoic and may represent complex cyst Discharge Plan Discharge Clinical Impression: Vaginal discharge, Flank pain, Left ovarian cyst Patient Disposition: Home Condition: Stable Instructions: Antibiotic Form, Bacterial Vaginosis (ED), Dysuria (ED), Vaginal Discharge (ED) Additional Instructions: Take Flagyl/metronidazole as prescribed for suspected bacterial vaginosis. Finish your entire course of antibiotics for the urinary tract infection. Stay well hydrated. You may take Pyridium for additional urinary symptom relief. Follow-up with your primary care doctor for further evaluation. Follow up with OBGYN for further evaluation of ovarian cyst. Return to the ED if you experience worsening or severe pain, difficulty urinating, blood in urine, abnormal vaginal bleeding, persistent fevers, or any other symptoms of concern. Patient Language: Citizen Of [place] Prescriptions: New metronidazole 500 mg tablet 500 mg PO BID 7 Days Qty: 14 0RF phenazopyridine [Pyridium] 200 mg tablet 200 mg PO TID Qty: 6 0RF No Action sulfamethoxazole-trimethoprim [Bactrim DS] 800-160 mg tablet 1 tablet PO Q12H 5 Days Qty: 10 0RF propranolol 20 mg tablet 20 mg PO Q12H Qty: 60 5RF Follow-up/Referrals: Baljit Mcdowell MD [Physician, DINKING MACHINE OPERATOR] Referral Note: NAYELI Maher,Anahi Fields APRN [Primary Care Provider, Unknown] Time of Disposition: 01:55
[2025-01-26 23:40] VITALS: BP 161/96; PULSE 86; RESP 17; O2SAT 100
[2025-01-27 02:03] VITALS: BP 128/66; PULSE 76; RESP 18; O2SAT 100
== END 2025-01-27 02:04 | disposition home or self-care (01) ==
PROVIDERS: Student in an Organized Health Care Education/Training Program; Emergency Provider Physician Assistant; PCP Nurse Practitioner Family
DX: N83.202 Unspecified ovarian cyst, left side (principal); N89.8 Other specified noninflammatory disorders of vagina; I10 Essential (primary) hypertension
CPT/HCPCS: 74176; 76856; 81001; 81025; 99284; A9270

== ENCOUNTER 2025-03-19 11:49 | Emergency (ER) | payer OTHER, MEDICAID, SELFPAY ==
--- OUTSIDE RECORDS SUMMARY | 2025-03-19 11:53 | XMS_ITS | Clinical Summary ---
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 Repeat [...] Encounters Date Type Department Care Team Description 01/27/2025 Orders Only [facility] Primary Care at [address] [address] Provider, MD Anne-Marie from Last 3 Months Immunizations Immunization Administration [...] on file Legal Sex Female 9:25 AM ANIMAL CONTROL OFFICER Gender Identity Female 02/28/2024 1:35 PM [...] 167.6 cm (5' 5.98) 11/24/2024 9:09 AM CD T Body Mass Index 44.8 11/24/2024 9:09 AM CDT Plan of Treatment Health Maintenance Due Date Last Done Comments HPV Vaccines (1 - 3-dose series) 2019 Meningococcal B Vaccine (1 of 2 - Standard) 2020 Regular Well Visit/Exam 18-64 2022 Covid-19 Vaccine (4 - 2024- season) 2025 10/16/2021, 10/27/2020, 10/03/2020 Influenza Vaccine [...] Procedure Name Priority Date/Time Associated Diagnosis Comments US PELVIS COMPLETE Schedule Routine, Read Routine (OP Routine) 01/26/2025 11:[address] ABDOMEN PELVIS WO CONTRAST Schedule Routine, Read Routine (OP Routine) 01/26/2025 11:12 AM CDT HEPATITIS C ANTIBODY Routine 02/12/2024 11:22 AM CDT Encounter for hepatitis C screening test for low risk patient from Last 3 Months or Most Recently Relevant to Health Maintenance Results * US Pelvis Complete (01/26/2025 11:17 AM CDT) Anatomical Region Laterality Modality Pelvis N/A Ultrasound Historical Provider MD [facility] US PROCEDURES Final R esult * CT Abdomen Pelvis WO Contrast (01/26/2025 11:12 AM CDT) Anatomical Region Laterality Modality Body N/A Computed Tomogra phy Historical Provider MD [facility] CT PROCEDURES Final R esult * Hepatitis C [...] - GENERAL ORDER ASHELY Final Result [facility] [id number] Department [place] [address] from Last 3 Months or Most Recently Relevant to Health Maintenance Insurance [facility] CHOICE PLUS [employer] [facility] Address: [address] [place] [address] IDPA [facility] Address: [address] [place] [address] [place] [address] [facility] CHOICE PLUS Care Teams Fabric Finisher Relationship Specialty Start Date End Date Anahi Maher NP [address] [place] [address] PCP - General Family Medicine 02/12/24 Tawanda Lopez DO [address] [place] [address] Referring Physician Internal Medicine 02/12/24 Arianna Lucio MD [address] [place], [place] [id number] Obstetrics and Gynecology 02/12/24
--- OUTSIDE RECORDS SUMMARY | 2025-03-19 11:53 | XMS_ITS | Encounter Summary ---
Author Organization [facility] Address [address] [place] [address] Phone Care Team Providers Care Manager Support Name Role Phone Mary Alice Liu MD Primary Care Provider Anahi Maher NP Primary Care Provider [phone] John Tawandajonnie Wright DO Unavailable [phone] Arianna Lucio MD Unavailable [phone] Reason for Referral * Cardiology (Routine) - Closed Specialty Diagnoses / Procedures Referred By Contac t Referred To Contact Diagnoses Elevated blood pressure reading without diagnosis of hypertension Procedures 24 hour Blood Pressure Monitor Nani Bains MD [address] [place] [address] [address] [place] [address] Phone: tel: fax: External Order Referral ID Status Reason Start Date Expiration Date Visits Re quested Visits Authorized [id number] Closed 04/11/2020 05/11/2021 1 1 MACHINE OPERATOR Encounter Details Date Type Department Care Team (Late st Contact Info) Description 04/11/2020 Orders Only [facility] Medicine Pediatric Nephrology [facility] 2nd [place] [address] [place] [id number] Kimi De La Torre RN Elevated blood pressure reading without diagnosis of hypertension (Primary Dx) Social History Tobacco Use Types Packs/Day Years Used Date Smoking Tobacco: Never Smokeless Tobacco: Never Comments Unknown Sex and Gender Information Value Date Recorded Sex Assigned at Not on file Legal Sex Female 9:25 AM CUP MACHINE OPERATOR Gender Identity Female 02/28/2024 1:35 PM CDT Sexual Orientation Not on file documented as of this encounter Plan of Treatment Pending Results Name Type Priority Associated Diagnoses Date /Time 24 hour Blood Pressure Monitor Cardiac Services Routine Elevated blood pressure reading without diagnosis of hypertension 04/01/2020 7:13 AM CUP MACHINE OPERATOR documented as of this encounter Visit Diagnoses Diagnosis Elevated blood pressure reading without diagnosis of hypertension- Primary documented in this encounter Care Teams Manager Support Relationship Specialty Start Date End Date Mary Alice Liu MD [address] [place] [address] PCP - General Pediatrics 01/13/20 02/11/24 Anahi Maher NP [address] [place] [address] PCP - General Family Medicine 02/12/24 Tawanda Lopez DO [address] [place] [address] Referring Physician Internal Medicine 02/12/24 Arianna Lucio MD [address] [place] [address] Obstetrics and Gynecology 02/12/24 documented as of this encounter
--- OUTSIDE RECORDS SUMMARY | 2025-03-19 11:53 | XMS_ITS | Encounter Summary ---
Author Organization [facility] Address [address] [place] [address] Phone Care Team Providers Care Court Interpreter Name Role Phone Mary Alice Liu MD Primary Care Provider Aanhi Maher NP Primary Care Provider [phone] Tawanda Lopez DO Unavailable [phone] Arianna Lucio MD Unavailable [phone] Encounter Details Date Type Department Care Team (Late st Contact Info) Description 10/16/2021 Telephone [facility] Pediatric Endocrinology [facility] 2nd [place] [address] [place] [address] Lenka Marti [facility] Social History Tobacco Use Types Packs/Day Years Used Date Smoking Tobacco: Never Smokeless Tobacco: Never Comments Unknown Sex and Gender Information Value Date Recorded Sex Assigned at Not on file Legal Sex Female 9:25 AM CAR BODY MECHANIC Gender Identity Female 02/28/2024 1:35 PM CDT Sexual Orientation Not on file documented as of this encounter Plan of Treatment Not on file documented as of this encounter Visit Diagnoses Not on filedocumented in this encounter Care Teams Court Interpreter Relationship Specialty Start Date End Date Mary Alice Liu MD [address] [place] [address] PCP - General Pediatrics 01/13/20 02/11/24 Anahi Maher, RETAIL WAREHOUSE ASSOCIATE [address] [place] [address] PCP - General Family Medicine 02/12/24 Tawanda Lopez DO [address] [place], [place] [id number] Referring Physician Internal Medicine 02/12/24 Arianna Lucio MD [address] [place] [address] Obstetrics and Gynecology 02/12/24 documented as of this encounter
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
[2025-03-19 11:56] VITALS: BP 117/75; PULSE 89; RESP 18; TEMP 36.4; O2SAT 99
[2025-03-19 12:10] LABS: EDUAAPPEAR Cloudy; EDUABILI Negative (Negative); EDUABLOOD 1+ (Negative); EDUACOLOR1 Yellow; EDUAGLUCOSE Negative (Negative); EDUAKETONE Negative (Negative); EDUALEUKO 3+ (Negative); EDUANITRATE Negative (Negative); EDUAPH 6.0; EDUAPROTEIN Negative (Negative); EDUASPGRAVITY 1.025; EDUAUROBILI 0.2
--- NOTE | 2025-03-19 12:20 | ED.FEMALEGU ---
HPI - Female Genitourinary General Chief complaint: Urogenital-Female Stated complaint: UTI Time Seen by Provider: 03/19/25 12:02 Source: patient and RN notes reviewed Mode of arrival: ambulatory Limitations: no limitations History of Present Illness HPI Narrative: 19-year-old female patient with reported history of frequent UTI complains of 4 to five-day history of vulvar itching with a 2 day history of thick white vaginal discharge. She noted blood on her toilet paper with wiping this morning. States she finished a 7 day course of Augmentin 2 days ago for a dental infection and believe she has a vaginal yeast infection in possibly a UTI. She denies dysuria or urinary frequency. She tried topical yeast treatment a few days ago without relief. States she gets a UTI once a month or once every other month. Last documented UTI in this record was since mid-January, was E coli with no resistance. Related Data Allergies Allergy/AdvReac Type Severity Reaction Status Date / Time No Known Allergies Allergy Verified 03/19/25 12:03 [facility] Past Medical History Medical History ADHD (attention deficit hyperactivity disorder) Nexplanon insertion 07/2018 Nexplanon insertion 08/23/21 Nexplanon removal/reinsertion Nexplanon removal 08/23/21 Nexplanon removal/reinsertion Vaginal discharge Encounter for Nexplanon removal 05/27/2022 Anxiety Tachycardia Hypertension Depression Surgical History Surgical History History of tonsillectomy Family History Family History Mother Cystic fibrosis Sibling Cystic fibrosis carrier Social History Social History Alcohol intake: never Substance use: current Substance use type: marijuana Other substance usage details: </= 1 joint daily Do You Feel Safe in your Home?: Yes Lack of Transportation: No Lack of Food: Never True Current Housing: I Have Housing Concerned About Future Housing: No Difficulty Paying Gas/Electric Bills: No Difficulty Paying for Meds: No Currently Unemployed: No Education: High School Diploma/GED Difficulty w/ Childcare or Family Care: No Living arrangements: other Additional living arrangements comments: grandma 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 Please see nursing chart for further information. There is no relevant family history pertinent to the presenting complaint Exam Narrative: GENERAL: Well-appearing, well-nourished, and in no acute distress. HEAD: Normocephalic, atraumatic. EYES: EOMI. No redness or drainage. Conjunctivae normal. ENT: Mucous membranes pink and moist. NECK: Normal AROM. CHEST: No respiratory distress. Clear to auscultation. HEART: Regular rate and rhythm. No murmur appreciated. EXTREMITIES: Normal range of motion. No edema. SKIN: Warm, dry, no rash. Capillary refill normal. Normal skin turgor. NEURO: No focal deficits. Alert and oriented x3. Gait steady. PSYCH: Normal affect. No signs of depression or anxiety. Course Course Level of Care: Express Care Visit Vital Signs Vital signs: Vital Signs Temperature 97.5 F L 03/19/25 11:56 Pulse Rate 89 03/19/25 11:56 Respiratory Rate 18 03/19/25 11:56 Blood Pressure 117/75 03/19/25 11:56 Pulse Oximetry 99 03/19/25 11:56 Oxygen Delivery Room Air 03/19/25 11:56 Temperature 97.5 F L 03/19/25 11:56 Pulse Rate 89 03/19/25 11:56 Respiratory Rate 18 03/19/25 11:56 Blood Pressure 117/75 03/19/25 11:56 Pulse Oximetry 99 03/19/25 11:56 Oxygen Delivery Room Air 03/19/25 11:56 Reviewed MDM - Female Genitourinary MDM Narrative Medical decision making narrative: 19-year-old female patient with reported history of frequent UTI complains of 4 to five-day history of vulvar itching with a 2 day history of thick white vaginal discharge. She noted blood on her toilet paper with wiping this morning. States she finished a 7 day course of Augmentin 2 days ago for a dental infection and believe she has a vaginal yeast infection in possibly a UTI. She denies dysuria or urinary frequency. She tried topical yeast treatment a few days ago without relief. States she gets a UTI once a month or once every other month. Last documented UTI in this record was since mid-January, was E coli with no resistance. Normal physical exam. Urinalysis shows 3+ leukocytes and 1+ blood. Using the urinalysis in patient's reported gross hematuria this morning, patient continues to have a UTI even after 7 days of Augmentin, giving suspicion of resistance. Will treat with Macrobid while urine culture is pending. Will also prescribe some fluconazole for vaginal yeast infection. Urged patient to follow-up with her PCP or make an appointment with Urology given frequency of her UTIs. Patient agrees with plan. Vital signs stable. Anticipatory guidance given. ED precautions given. Differential Diagnosis Differential diagnosis: Likely urinary tract infection, vaginitis and cystitis Lab Data Attestation: I reviewed the patient's lab results. Labs: Lab Results 03/19/25 Range/Units 12:08 POC Urine Color Yellow POC Urine Clarity Cloudy POC Urine pH 6.0 POC Ur Specif [place] 1.025 POC Urine Protein Negative (Negative) POC Ur Glucose (UA) Negative (Negative) POC Urine Ketones Negative (Negative) POC Urine Blood 1+ (Negative) POC Urine Nitrite Negative (Negative) POC Urine Bilirubin Negative (Negative) POC Urine Urobilinogen 0.2 POC U Leukocyte Esteras 3+ (Negative) Critical Care Time Critical Care Time Critical Care Time: No Discharge Plan Discharge Clinical Impression: UTI (urinary tract infection), Vaginal yeast infection Patient Disposition: Home Condition: Stable Instructions: Antibiotic Form, Urinary Tract Infection in Women (DC), Yeast Infection (ED) Additional Instructions: Your urine shows an infection today, despite taking the Augmentin recently for your dental infection. Please take the Macrobid for your infection today. You have also been prescribed fluconazole for your vaginal yeast infection. Please start this when you are finished with your antibiotic. In the meantime, you can apply some topical clotrimazole. Since you have a history of frequent UTI, you may consider following up with a urologist for further evaluation. If symptoms worsen to include fever, severe abdominal or back pain, vomiting, sweats or chills, please go to the ER for further evaluation. Patient Language: Spanish Prescriptions: New nitrofurantoin monohyd/m-cryst [Macrobid] 100 mg capsule 100 mg PO Q12H 7 Days Qty: 14 0RF Rx Instructions: must administer with a meal/food fluconazole 150 mg tablet 150 mg PO Q3D Qty: 2 0RF Follow-up/Referrals: Nika,Anahi Fields APRN [Primary Care Provider, Unknown] Naveed Ruiz MD [Physician, Urology] Time of Disposition: 12:25
== END 2025-03-19 12:28 | disposition home or self-care (01) ==
PROVIDERS: Emergency Provider Nurse Practitioner; PCP Nurse Practitioner Family
DX: N39.0 Urinary tract infection, site not specified (principal); B37.31 Acute candidiasis of vulva and vagina; F12.90 Cannabis use, unspecified, uncomplicated; I10 Essential (primary) hypertension
CPT/HCPCS: 81003; 87086; 99213; G0463